=== PATIENT | female | born 1995 | race Two or more races ===

== ENCOUNTER 2024-06-14 11:33 | Emergency (ER) | payer MEDICAID, SELFPAY ==
--- NOTE | 2024-06-14 12:18 | PD.EDRME ---
Rapid Medical Screening Exam RME Arrival date/time: 06/14/24 11:33 28-year-old female presents to the emergency department complains of nausea vomiting and abdominal pain since this morning Chief Complaint: Abdominal Pain
[2024-06-14] MEDS: ONDANSETRON ODT 4 MG TABRAP PO (12:27)
[2024-06-14 12:31] VITALS: BP 159/96; PULSE 64; RESP 20; TEMP 36.8; O2SAT 100; BMI 21.4
[2024-06-14 12:46] LABS: Basophils % (Auto) 0 % (0-2.5); Eosinophils % (Auto) 0 % (0-10); Hemoglobin 13.4 g/dL (12.0-16.0); Immature Granulocytes % (Auto) 0 % (0-0); Immature Granulocytes Auto 0.03 Thou/mm3 (0.00-0.00); Lymphocytes # (Auto) 1.1 Thou/mm3 (1.0-4.8); Lymphocytes % (Auto) 9 % (10-50); Mean Corpuscular HGB Conc 33.5 g/dl (31.0-37.0); Mean Corpuscular Hemoglobin 29.1 pg (25.0-35.0); Mean Corpuscular Volume 87 fL (80-100); Monocytes # (Auto) 0.2 Thou/mm3 (0.0-0.8); Monocytes % (Auto) 1 % (0-12); Neutrophils # (Auto) 10.7 Thou/mm3 (1.8-7.7); Neutrophils % (Auto) 89 % (37-80); Nucleated Red Blood Cell % 0 /100 WBC (0); Platelet Count 249 Thou/mm3 (140-440); RDW Standard Deviation 38.8 fL (36.4-46.3); Red Blood Count 4.61 Miln/mm3 (4.00-5.20)
--- NOTE | 2024-06-14 12:53 | XR_ITS ---
Examination: CT abdomen with intravenous contrast CT pelvis with intravenous contrast 2-D coronal reconstructions 2-D sagittal reconstructions Date and time of exam:May 27, 2024 at 1545 hrs. Comparison January 21, 2024 Indications: Onset left lower abdominal pain beginning this morning. Solid right ovarian mass 17 x 16 x 18 mm on transvaginal pelvic sonogram 01/31/2024 CTDI: vol (mGy) 6.38 DLP: (mGycm) 277 Technique: Multiple axial sections of the abdomen and pelvis have been obtained. 64 slice high-resolution scanner used. 3 mm axial sections have been obtained, post intravenous injection 60 cc [id number] 2-D sagittal, coronal reconstructions obtained. Low dose protocols were performed. One or more of the following dose reduction techniques were used; automated exposure control, adjustment of the mA and/or KV according to patient size, use of iterative reconstruction technique. Findings: Mild pneumonia left base No focal liver or splenic lesions No gallstones No pancreatic or adrenal mass No hydronephrosis or ureteral calculi Aorta normal size Absent appendix No bowel obstruction Anteverted uterus Suspicious for septated partially cystic enlarged right ovary Contracted urinary bladder The osseous structures are intact Impression: Mild pneumonia left base No hydronephrosis or ureteral calculi Absent appendix Complex partially septated cystic enlarged right ovary, recommend repeat transabdominal pelvic sonography
--- NOTE | 2024-06-14 12:54 | PD.EDADULT ---
ED General RME/HPI General Chief complaint: Abdominal Pain Stated complaint: SEVERE ABDOMINAL PAIN AND VOMITING Time Seen by Provider: 06/14/24 12:51 Arrival date/time: 06/14/24 11:33 CC: Left lower quadrant abdominal pain HPI onset at 5 AM this morning with nausea vomiting. Patient denies fever but states the IUD was removed yesterday. Patient states this pain is a cramping type pain with a stabbing overlay. Waxes and wanes but never goes away completely. Denies any diarrhea. Last menstrual cycle was on May 20. Patient was tested yesterday was negative prior to IUD removal. Patient denies chest pain fever shortness of breath difficulty breathing. RME / HPI RME / HPI narrative: 06/14/24 11:33 28-year-old female presents to the emergency department complains of nausea vomiting and abdominal pain since this morning Related Data Home Medications ?Medication ?Instructions ?Recorded ?Confirmed tramadol 50 mg tablet 50 mg PO TID PRN Pain (Scale Score 06/14/24 06/14/24 4-6) Previous Rx's ?Medication ?Instructions ?Recorded meloxicam 7.5 mg tablet 7.5 mg PO QDAY #10 tabs 06/14/24 ondansetron 4 mg disintegrating 4 mg PO Q8H #10 tabs 06/14/24 tablet Allergies Allergy/AdvReac Type Severity Reaction Status Date / Time No Known Allergies Allergy Verified 06/14/24 11:36 Review of Systems Review of Systems Narrative Review of Systems: GEN: No fever, no chills, no weight loss EYES: No discharge, no visual changes, no pain HEENT: No ear pain, no congestion, no sore throat PULM: No shortness of breath, no cough, no congestion CV: No chest pain, no dyspnea on exertion, no palpitations GI: No nausea, no vomiting, no diarrhea, + pain, no constipation : No frequency, no urgency, no dysuria MUSC/SKEL: No joint pain, no back pain SKIN: No rash PSYCH: No hallucinations, no depression HEME/LYMPH: No easy bleeding or bruising tendencies NEURO: No weakness, no headache Past Medical History Past Medical History NEUROLOGIC: Negative Neurological Disorders or Seizures CARDIAC: Negative Cardiac Disorders or Congestive Heart Failure RESPIRATORY: Positive Asthma; Negative Chronic Obstructive Pulmonary Disease (COPD) GASTROINTESTINAL: Positive Gastrointestinal Disorders; Negative Hepatitis or Colorectal Cancer GENITOURINARY: Negative Genitourinary Disorders, Renal Disease or Prostate Cancer REPRODUCTIVE: Positive Previous Pregnancies; Negative Breast Cancer, Pelvic Inflammatory Disease or Testicular Cancer MUSCULOSKELETAL: Negative Musculoskeletal Disorders or Bone Cancer ENDOCRINE: Negative Endocrine Disorders, Diabetes Mellitus Type 1 or Diabetes Mellitus Type 2 HEMATOLOGIC: Negative Blood Disorders or Sickle Cell Disease PSYCHO/SOCIAL: Positive Depression and Anxiety OTHER HISTORY: Positive Hospitalization; Negative Autoimmune Disease, Down Syndrome, Developmental Delay, Shingles, Falls, Blood Transfusions, Blood Transfusion Reaction, Anesthesia Reactions, Organ Transplant, Chemotherapy, Radiation Therapy, Hyperbaric Therapy, MRSA, VRSA, Vancomycin-Resistant Enterococci, Human Immunodeficiency Virus (HIV), Chicken Pox, Measles, Mumps, Rubella (Yoruba Measles), Pertussis, Clostridium Difficile, Cancer, Breast Cancer, Cervical Cancer, Colorectal Cancer, Lung Cancer, Ovarian Cancer, Prostate Cancer or Testicular Cancer Family History FAMILY HISTORY: Positive Family Cardiac Disorders and Family Surgery; Negative Family Psychiatric Problems, Family Respiratory Disorders, Family Gastrointestinal Problems, Family Cancer or Family Anesthesia Reaction Surgical History SURGICAL: Positive Tubal Ligation; Negative Section or Organ Transplant Social History SMOKING STATUS: Current every day smoker SECOND HAND EXPOSURE: Yes SUBSTANCE USE: marijuana (Occasional) ED Exam Narrative Physical exam: [General: Obese in moderate discomfort but not in any acute distress Head normocephalic HEENT: Within acceptable limits Neck is supple nontender Chest equal chest rise nontender to palpation Respiratory: Clear to auscultation no wheezes crackles or rubs CV: Rate rhythm is regular no murmurs rubs or clicks Abdomen: Left lower quadrant tenderness with palpation reflexive guarding no rebound tenderness. Abdomen is soft positive bowel sounds. Back: No CVA tenderness no spinous process tenderness from cervical spine thoracic and lumbar spine Skin: Intact no petechiae rash induration ulceration or crepitus Extremities: Moving all extremity against resistance cap refill less than 2 seconds neurosensory intact Neuro: Awake alert oriented x3 Glascow coma 15 no focal deficits] Course Quality Measures VTE prophylaxis Orders Category Date Time Status CT Screening NOW Care 06/14/24 12:53 Active Saline [Insert IV] NOW Care 06/14/24 12:[address] abdomen pelvis w con Stat Exams 06/14/24 12:53 Completed CBC Stat Lab 06/14/24 12:34 Completed CMP [Comprehensive Metabolic Panel] Stat Lab 06/14/24 12:34 Completed Drug Screen,Urine Stat Lab 06/14/24 14:09 Completed HCG Qualitative,Urine Stat Lab 06/14/24 14:09 Completed Lipase Stat Lab 06/14/24 12:34 Completed UA, C/S IF [Urinalysis, C/S if Indicated] Stat Lab 06/14/24 14:09 Completed Ketorolac Inj [Toradol Inj] Med 06/14/24 16:00 Discontinued 15 mg IVP X1 ONE Metoclopramide Inj [Reglan Inj] Med 06/14/24 12:17 Discontinued 10 mg IM X1 ONE Morphine Inj Med 06/14/24 12:51 Discontinued 4 mg IVP X1 ONE Ondansetron Inj [Zofran Inj] Med 06/14/24 12:51 Discontinued 4 mg IV X1 ONE Ondansetron Inj [Zofran Inj] Med 06/14/24 16:38 Discontinued 4 mg IV X1 ONE Ondansetron Odt [Zofran Odt] Med 06/14/24 12:17 Discontinued 4 mg PO X1 ONE Sodium Chloride 0.9% 1000 ml [Ns] 1,000 ml Med 06/14/24 13:16 Discontinued IV 999 mls/hr Vital Signs Vital signs: Vital Signs Temperature 98.3 F 06/14/24 12:31 Pulse Rate 64 06/14/24 12:31 Respiratory Rate 20 06/14/24 12:31 Blood Pressure 159/96 H 06/14/24 12:31 Pulse Oximetry (%) 100 06/14/24 12:31 Oxygen Delivery Method Room Air 06/14/24 12:31 [facility] Patient data External records reviewed:: [facility] previous records Clinical information provided by:: none Social determinants that could affect healthcare access:: none Patient has the following chronic illnesses:: None How is presenting disease/condition affected by chronic disease/condition?: uneffected by Evaluation data The following diagnostics were reviewed and interpreted by me:: lab results and radiology exam(s) Lab and/or radiology exams considered but not ordered:: CBC shows leukocytosis of 12,000 no anemia thrombocytopenia CMP shows no acute electrolyte imbalances other than a mildly elevated glucose at 159, no transaminitis or T. bili elevation Urine is negative for UTI UDS positive for opiates and THC CT of the abdomen shows a large complex right ovarian cyst, minimal left base pneumonia, appendix is absent as read by radiologist Interpretation Summary: Patient has no pneumonia type symptoms including cough shortness of breath hypoxemia high fever therefore will not treat. Patient is to follow-up with the [employer] which she states she has. Medications Medications considered but not ordered:: None Medication administrations:: Medication Administration History Discontinued Medications Sodium Chloride (Ns) 1,000 mls @ 999 mls/hr IV .Q1H1M ONE Stop: 06/14/24 14:16 Last Admin: 06/14/24 13:19 Dose: 999 mls/hr Documented By: AM Ketorolac Tromethamine (Ketorolac Inj 30 Mg/Ml Vial) 15 mg IVP X1 ONE Stop: 06/14/24 16:01 Last Admin: 06/14/24 16:11 Dose: 15 mg Documented By: DO Metoclopramide HCl (Metoclopramide Inj 5 Mg/Ml Vial 2 Ml) 10 mg IM X1 ONE; Protocol Stop: 06/14/24 12:18 Last Admin: 06/14/24 13:21 Dose: 10 mg Documented By: Admin: 06/14/24 12:28 Dose: Not Given Documented By: DO Non-Admin Reason: Patient Refused Morphine Sulfate (Morphine Sulf Inj 10 Mg/Ml Vial) 4 mg IVP X1 ONE Stop: 06/14/24 12:52 Last Admin: 06/14/24 13:21 Dose: 4 mg Documented By: AM Comments: 4 mg given Ondansetron HCl (Ondansetron Odt 4 Mg Tabrap) 4 mg PO X1 ONE; Protocol Stop: 06/14/24 12:18 Last Admin: 06/14/24 12:27 Dose: 4 mg Documented By: DO Ondansetron HCl (Ondansetron Inj 2 Mg/Ml Inj 2 Ml) 4 mg IV X1 ONE; Protocol Stop: 06/14/24 12:52 Last Admin: 06/14/24 16:07 Dose: Not Given Documented By: DO Non-Admin Reason: Cancelled by Provider Ondansetron HCl (Ondansetron Inj 2 Mg/Ml Inj 2 Ml) 4 mg IV X1 ONE; Protocol Stop: 06/14/24 16:39 None Consultations Consultation(s) initiated? (list below): No Diagnosis Differential Diagnosis ED Complaint MDM: Appendicitis pancreatitis cholelithiasis Most likely diagnosis given after review of the tests above:: Right ovarian cyst, abdominal pain Admission Indicated Admission indicated?: not indicated Explain why admission is indicated or not indicated:: Stable for outpatient follow-up Admission Request Was there a request for admission?: No Disposition Plan Disposition Plan: Discharge Discharge Attestation Discharge Attestation: The patient and all family members were given an opportunity to ask questions and understood the discharge instructions. Discharge instructions specifically effects, indications for sooner follow up or return to the emergency department, and the expected course of current diagnosis. Patient condition: Stable Medical Decision Making Differential Diagnosis Differential Diagnosis: Appendicitis pancreatitis cholelithiasis Lab Data 06/14/24 12:34 06/14/24 12:34 Labs: Lab Results 06/14/24 06/14/24 Range/Units 12:34 14:09 WBC 12.0 H (3.6-11.0) Thou/mm3 RBC 4.61 (4.00-5.20) Miln/mm3 Hgb 13.4 (12.0-16.0) g/dL Hct 40.0 (36.0-46.0) % MCV 87 (80-100) fL MCH 29.1 (25.0-35.0) pg MCHC 33.5 (31.0-37.0) g/dl RDW Std Deviation 38.8 (36.4-46.3) fL Plt Count 249 (140-440) Thou/mm3 Neut % (Auto) 89 H (37-80) % Lymph % (Auto) 9 L (10-50) % [place] % (Auto) 1 (0-12) % Eos % (Auto) 0 (0-10) % Baso % (Auto) 0 (0-2.5) % Neut # (Auto) 10.7 H (1.8-7.7) Thou/mm3 Lymph # (Auto) 1.1 (1.0-4.8) Thou/mm3 [place] # (Auto) 0.2 (0.0-0.8) Thou/mm3 Eos # (Auto) 0.0 (0.0-0.5) Thou/mm3 Baso # (Auto) 0.0 (0.0-0.2) Thou/mm3 Immature Gran # (Auto) 0.03 H (0.00-0.00) Thou/mm3 Absolute Nucleated RBC 0.00 (0.00-0.00) Thou/mm3 Immature Gran % 0 (0-0) % Nucleated RBC % 0 (0) /100 WBC Sodium 140 (136-145) mMol/L Potassium 4.0 (3.4-5.1) mMol/L Chloride 104 (98-107) mMol/L Carbon Dioxide 27.0 (20.0-31.0) mMol/L Anion Gap 9 (7-16) BUN 9 (9-23) mg/dL Creatinine 0.7 (0.6-1.3) mg/dL Estim Creat Clear Calc 105.2 (>60) mL/min eGFR > 60 (60 - ) See Note BUN/Creatinine Ratio 13 (12-20) Ratio Glucose 159 H (74-106) mg/dL Calculated Osmolality 281 (275-295) Calcium 9.9 (8.3-10.6) mg/dL Corrected Calcium 9.9 (8.5-10.1) mg/dL Total Bilirubin 0.3 (0.3-1.2) mg/dL AST 12 (0-34) U/L ALT 9 L (10-49) U/L Alkaline Phosphatase 56 (46-116) U/L Total Protein 7.5 (5.7-8.2) gm/dL Albumin 4.7 (3.5-5.0) gm/dL Globulin 2.8 (2.3-3.5) gm/dL Albumin/Globulin Ratio 1.7 (1.2-2.2) Lipase 27 (12-53) U/L Ur Collection Type Clean Catch Urine Color Lt-Yellow (Lt Yel-Yel) Urine Clarity Turbid A (Clear/Hazy) Urine pH 8.0 H (5.0-7.0) Ur Specific [place] 1.029 (1.001-1.035) Urine Protein 1+ A (Neg - Trace) Urine Glucose (UA) Negative (Negative) Urine Ketones 4+ A (Negative) Urine Blood Negative (Negative) Urine Nitrite Negative (Negative) Urine Bilirubin Negative (Negative) Urine Urobilinogen (Auto) Negative (0.0-1.0) mg/dL Ur Leukocyte Esterase Positive (Negative) Urine RBC 3 (0-3) /hpf Urine WBC 7 H (0-5) /hpf Ur Squamous Epith Cells 12 H (0-5) /hpf Urine Bacteria Rare (None) Ur Culture Indicated? Not Indicated Urine HCG, Qual Negative Urine Opiates Screen Positive A (Negative) Urine Fentanyl Screen Negative (Negative) Ur Barbiturates Screen Negative (Negative) U Amphetamin/Meth Scrn Negative (Negative) U Benzodiazepines Scrn Negative (Negative) U Cocaine Metab Screen Negative (Negative) U Marijuana (THC) Screen Positive A (Negative) Discharge Plan Plan Patient Disposition: HOME (Self Care) Patient condition on transfer: Stable Prescriptions/Referrals Prescriptions/Med Rec: New meloxicam 7.5 mg tablet 7.5 mg PO QDAY Qty: 10 0RF ondansetron 4 mg tablet,disintegrating 4 mg PO Q8H Qty: 10 0RF No Action tramadol 50 mg tablet 50 mg PO TID PRN (Reason: Pain (Scale Score 4-6)) Patient Comments: TAKE 1 TABLET BY MOUTH 3 TIMES A DAY NEEDED FOR ABDOMINAL OR PELVIC PAIN Referrals: Venu Glynn MD [Primary Care Provider] - In 1 week Namrata Dunaway MD [Physician] - In 1 week Problem List Clinical Impression: Ovarian cyst, Abdominal pain, right lower quadrant Patient/Caregiver Discharge Instructions Education Materials: ED Ovarian Cyst, Abdominal Pain Additional Instructions: Take the medication as prescribed for pain and nausea relief follow-up with your [employer] or the [employer] listed above. Print Language: Kittitian Stand Alone Forms: Dianna Award Info., Patient Portal Info Letter, Work/School Release PA/[employer] Supervising Physician ALICIA/[employer] Supervising Physician: Kolby Schultz ENP
[2024-06-14 13:07] LABS: Alanine Aminotransferase 9 U/L (10-49); Albumin, Serum 4.7 gm/dL (3.5-5.0); Albumin/Globulin Ratio 1.7 (1.2-2.2); Alkaline Phosphatase 56 U/L (46-116); Anion Gap 9 (7-16); Aspartate Amino Transferase 12 U/L (0-34); BUN/Creatinine Ratio 13 Ratio (12-20); Bilirubin,Total 0.3 mg/dL (0.3-1.2); Blood Urea Nitrogen 9 mg/dL (9-23); Calcium 9.9 mg/dL (8.3-10.6); Calcium (Corrected) 9.9 mg/dL (8.5-10.1); Chloride 104 mMol/L (98-107); Creatinine (Component) 0.7 mg/dL (0.6-1.3); Estimated Creatinine Clearance 105.2 mL/min (>60); Globulin 2.8 gm/dL (2.3-3.5); Glucose 159 mg/dL (74-106); Lipase 27 U/L (12-53); Osmolality,Calculated 281 (275-295); Sodium 140 mMol/L (136-145); Total Protein 7.5 gm/dL (5.7-8.2); eGFR > 60 See Note
[2024-06-14] MEDS: SODIUM CHLORIDE 0.9% 1000 ML 1,000 ML 999 ML IV (13:19)
[2024-06-14] MEDS: METOCLOPRAMIDE INJ 5 MG/ML VIAL 2 ML 10 MG IM (13:21)
[2024-06-14] MEDS: MORPHINE SULF INJ 10 MG/ML VIAL 4 MG IVP (13:21)
[2024-06-14 14:30] LABS: Collection Type, Urine Clean Catch
[2024-06-14 14:33] VITALS: BP 140/94; PULSE 74; RESP 18; TEMP 37; O2SAT 100
[2024-06-14 14:41] LABS: Bacteria,Urine Rare; Bilirubin,Urine Negative (Negative); Blood,Urine Negative (Negative); Clarity,Urine Turbid (Clear/Hazy); Color,Urine Lt-Yellow (Lt Yel-Yel); Culture Indicated,Urine Not Indicated; Glucose, Urine Negative (Negative); Ketones,Urine 4+ (Negative); Leukocyte Esterase,Urine Positive (Negative); Nitrite,Urine Negative (Negative); Protein,Urine 1+ (Neg - Trace); RBC,Urine 3 /hpf (0-3); Specific Gravity,Urine 1.029 (1.001-1.035); Squamous Epithelial Cell,Urine 12 /hpf (0-5); Urobilinogen,Urine Negative mg/dL (0.0-1.0); WBC,Urine 7 /hpf (0-5)
[2024-06-14 14:52] LABS: Amphetamine/Methamp Scrn,U Negative (Negative); Barbiturate Screen,Urine Negative (Negative); Benzodiazepines Screen,Urine Negative (Negative); Benzoylecgonine Screen, Ur Negative (Negative); Fentanyl Screen,Urine Negative (Negative); Opiate Screen,Urine Positive (Negative); THC Screen,Urine Positive (Negative)
[2024-06-14 15:15] LABS: HCG Qualitative,Urine Negative
[2024-06-14] MEDS: KETOROLAC INJ 30 MG/ML VIAL 15 MG IVP (16:11)
[2024-06-14 16:31] VITALS: BP 144/88; PULSE 68; RESP 17; TEMP 37.3; O2SAT 100
[2024-06-14] MEDS: ONDANSETRON INJ 2 MG/ML INJ 2 ML 4 MG IV (17:13)
== END 2024-06-14 17:10 | disposition home or self-care (01) ==
PROVIDERS: Nurse Practitioner Primary Care; Emergency Provider Emergency Medicine; PCP Family Medicine
DX: N83.201 Unspecified ovarian cyst, right side (principal)
CPT/HCPCS: 36415; 74177; 80053; 80307; 81001; 81025; 83690; 85025; 96372; 99285; A4649; J1885; J2270; J2405; J2765; J7030; Q0162; Q9967

== ENCOUNTER 2024-06-22 12:37 | Emergency (ER) | payer MEDICAID, SELFPAY ==
--- NOTE | 2024-06-22 12:46 | EDNOTE_ITS ---
ED Abdominal Pain RME/HPI General Chief Complaint: Abdominal Pain Stated complaint: LOWER ABD PAIN, N/V, CONSTIPATION Time seen by provider: 06/22/24 12:41 Arrival date/time: 06/22/24 12:37 RME / HPI RME / HPI narrative: This section includes all my notes and documentations, including HPI, PE, and ED course.? Abhishek Olivier MD HPI: 28 year old female with history of pelvic congestion syndrome to the left ovary and recent diagnosed with right ovarian cyst presents to the ED for complaint of abdominal pain today. Described as cramping in sensation located most across lower abdomen, rating as severe. Accompanied by feeling feverish, nausea, and vomiting. States she was evaluated here on 06/14/2024 for similar abdominal pain and prescribed Toradol which she took today without any improvement. Denies sweats, chest pain, cough, or urinary symptoms. No other complaints. ROS: All negative except as documented in HPI. Physical Exam: General:? Alert and oriented.? Appears to be in pain. Eyes:? Conjunctivae and lids clear.? ENT:? No nasal congestion.? Neck:? Supple.? Heart:? RRR.? Lungs:? No respiratory distress.? Good air movement.? No rhonchi, wheezing, rales.?? Abdomen:? Soft with pelvic tenderness. Legs:? No clubbing, cyanosis, edema.? Skin:? Warm and dry.?? Neuro:? Alert and oriented X 3.?? I reviewed all diagnostic test results. My review of the US report is: Right ovary 4.9 x 4.0 x 4.1 cm arterial flow septated 3.3 x 3.4 x 3.4 cm cyst. Blood tests unremarkable. At this point, diagnoses include?pelvic pain of unclear etiology. Treatment here included?Zofran and morphine and Dilaudid. Significant improvement noted. I discussed the case with our ORGANIC GARDENING TEACHER on-call.? About the presentation and exam and diagnostics and treatments here.? And possible need of further care in the hospital.? Recommended outpatient care. Based on my best medical judgment, made decision no further evaluation or treatment indicated at this time.? Patient understands and agrees to the discharge instructions customized and printed, see below. Discharge instructions from Dr. Olivier: -- After extensive evaluation (including exam by our cigar making machine operator), there is no emergency such as ovarian torsion needing emergent surgery. -- Your pain may be from large ovarian cyst or an ovarian cyst that ruptured. -- In young females, it is normal to have ovarian cysts (sacs of fluid) that come and go depending on the menstruation.? If a cyst ruptures, it can cause severe pain until your body reabsorbs the fluid. -- Apply ice or heat if helpful.? Tylenol with codeine for severe pain. Zofran for nausea/vomiting. -- See a private doctor on 06/23/2024 for recheck and further care..? Ask to review all test results and official radiology reports, to make sure you receive all necessary follow-ups and monitoring. Ask for a referral to see a cigar making machine operator who may perform surgery for you. To make sure there is no serious intra-abdominal condition, ask for help with more investigation not available here in the ER. Such as EGD or scoping the stomach, colonoscopy or scoping the colon, and referral to see aircraft loadmaster superintendent. -- Seek immediate medical care with worsening, fever, or with any concerns. Abhishek Olivier MD Related Data Home Medications ?Medication ?Instructions ?Recorded ?Confirmed tramadol 50 mg tablet 50 mg PO TID PRN Pain (Scale Score 06/14/24 06/14/24 4-6) Previous Rx's ?Medication ?Instructions ?Recorded meloxicam 7.5 mg tablet 7.5 mg PO QDAY #10 tabs 06/14/24 ondansetron 4 mg disintegrating 4 mg PO Q8H #10 tabs 06/14/24 tablet acetaminophen 300 mg-codeine 30 mg 2 tab PO TID PRN pain #20 tabs 06/22/24 tablet ondansetron 4 mg disintegrating 4 mg PO TID PRN nausea and 06/22/24 tablet vomiting 5 days #10 tabs Allergies Allergy/AdvReac Type Severity Reaction Status Date / Time No Known Allergies Allergy Verified 06/14/24 11:36 Review of Systems Review of Systems Systems Reviewed: All systems reviewed, normal except as documented Past Medical History Past Medical History RESPIRATORY: Positive Asthma GASTROINTESTINAL: Positive Gastrointestinal Disorders REPRODUCTIVE: Positive Previous Pregnancies PSYCHO/SOCIAL: Positive Recreational Drug Use (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), Depression and Anxiety OTHER HISTORY: Positive Hospitalization Family History FAMILY HISTORY: Positive Family Cardiac Disorders and Family Surgery Surgical History SURGICAL: Positive Tubal Ligation; Negative Section Social History SMOKING STATUS: Never smoker SECOND HAND EXPOSURE: Yes SUBSTANCE USE: marijuana (Occasional) Course Quality Measures none Orders Category Date Time Status US transvaginal Stat Exams 06/22/24 12:47 Completed CBC Stat Lab 06/22/24 12:53 Completed CMP [Comprehensive Metabolic Panel] Stat Lab 06/22/24 12:53 Completed HCG,Qualitative Serum Stat Lab 06/22/24 12:53 Completed Magnesium Stat Lab 06/22/24 12:53 Completed ACETAMINOPHEN w/COD 300-30 [Tylenol w/Cod #3] Med 06/22/24 12:47 Discontinued 2 tab PO X1 ONE HYDROmorphone INJ [Dilaudid Inj] Med 06/22/24 16:42 Discontinued 2 mg IM X1 ONE Morphine Inj Med 06/22/24 13:02 Discontinued 10 mg IM X1 ONE Ondansetron Odt [Zofran Odt] Med 06/22/24 12:47 Discontinued 4 mg PO X1 ONE Ondansetron Odt [Zofran Odt] Med 06/22/24 15:23 Discontinued 4 mg PO X1 ONE Vital Signs Vital signs: Vital Signs Temperature 99.5 F 06/22/24 12:48 Pulse Rate 83 06/22/24 12:48 Respiratory Rate 19 06/22/24 12:48 Blood Pressure 136/109 H 06/22/24 12:48 Pulse Oximetry (%) 100 06/22/24 12:48 Oxygen Delivery Method Room Air 06/22/24 12:48 Abdominal Pain MDM Patient data External records reviewed:: [facility] previous records Clinical information provided by:: patient Social determinants that could affect healthcare access:: other (specify) (Unknown) Patient has the following chronic illnesses:: Chronic pelvic pain How is presenting disease/condition affected by chronic disease/condition?: exacerbated by Evaluation data The following diagnostics were reviewed and interpreted by me:: lab results and radiology exam(s) Lab and/or radiology exams considered but not ordered:: None Interpretation Summary: Pelvic pain of unclear etiology Medications / Prescriptions Medications or Prescriptions considered but not ordered:: None Medication administrations:: Medication Administration History Discontinued Medications Acetaminophen/Codeine Phosphate (Acetaminophen W/Cod 300-30 Tablet) 2 tab PO X1 ONE Stop: 06/22/24 12:48 Last Admin: 06/22/24 13:10 Dose: Not Given Documented By: TASIA Non-Admin Reason: Cancelled by Provider Hydromorphone HCl (Hydromorphone Inj 2 Mg/Ml Vial) 2 mg IM X1 ONE Stop: 06/22/24 16:43 Last Admin: 06/22/24 16:58 Dose: 2 mg Documented By: FINN Morphine Sulfate (Morphine Sulf Inj 10 Mg/Ml Vial) 10 mg IM X1 ONE Stop: 06/22/24 13:03 Last Admin: 06/22/24 13:07 Dose: 10 mg Documented By: TASIA Ondansetron HCl (Ondansetron Odt 4 Mg Tabrap) 4 mg PO X1 ONE; Protocol Stop: 06/22/24 12:48 Last Admin: 06/22/24 13:00 Dose: 4 mg Documented By: TASIA Ondansetron HCl (Ondansetron Odt 4 Mg Tabrap) 4 mg PO X1 ONE; Protocol Stop: 06/22/24 15:24 Last Admin: 06/22/24 15:57 Dose: 4 mg Documented By: FINN Patient given dilaudid, morphine, and zofran Consultations Consultation(s) initiated? (list below): Yes Consultation #1 (Physician, Specialty, Details): Our ORGANIC GARDENING TEACHER Diagnosis Differential diagnosis abdominal pain: abdominal pain, acute appendicitis, calculus of kidney, constipation, diverticulitis, endometriosis, gastroenteritis, small bowel obstruction and other (Ovarian cyst, ovarian torsion) Most likely diagnosis given after review of the tests above:: pelvic pain of unclear etiology Admission Indicated Admission indicated?: not indicated Admission Request Was there a request for admission?: No Admission Attestation Admission request attestation: Admission criteria not met Disposition Plan Disposition Plan: Discharge Discharge Attestation Discharge Attestation: The patient and all family members were given an opportunity to ask questions and understood the discharge instructions. Discharge instructions specifically effects, indications for sooner follow up or return to the emergency department, and the expected course of current diagnosis. Patient condition: Stable Discharge Plan Plan Patient Disposition: HOME (Self Care) Prescriptions/Referrals Prescriptions/Med Rec: New acetaminophen-codeine 300-30 mg tablet 2 tab PO TID MDD 6 PRN (Reason: pain) Qty: 20 0RF ondansetron 4 mg tablet,disintegrating 4 mg PO TID PRN (Reason: nausea and vomiting) 5 Days Qty: 10 0RF No Action tramadol 50 mg tablet 50 mg PO TID PRN (Reason: Pain (Scale Score 4-6)) Patient Comments: TAKE 1 TABLET BY MOUTH 3 TIMES A DAY NEEDED FOR ABDOMINAL OR PELVIC PAIN meloxicam 7.5 mg tablet 7.5 mg PO QDAY Qty: 10 0RF ondansetron 4 mg tablet,disintegrating 4 mg PO Q8H Qty: 10 0RF Referrals: Tosha Pacheco PA-C [Primary Care Provider] - In 1 week Problem List Clinical Impression: Pelvic pain Patient/Caregiver Discharge Instructions Discharge Activity: activity as tolerated Education Materials: ED Ovarian Cyst, ED Pelvic Pain, Unknown Cause Additional Instructions: Discharge instructions from Dr. Olivier: -- After extensive evaluation (including exam by our cigar making machine operator), there is no emergency such as ovarian torsion needing emergent surgery. -- Your pain may be from large ovarian cyst or an ovarian cyst that ruptured. -- In young females, it is normal to have ovarian cysts (sacs of fluid) that come and go depending on the menstruation.? If a cyst ruptures, it can cause severe pain until your body reabsorbs the fluid. -- Apply ice or heat if helpful.? Tylenol with codeine for severe pain. Zofran for nausea/vomiting. -- See a private doctor on 06/23/2024 for recheck and further care..? Ask to review all test results and official radiology reports, to make sure you receive all necessary follow-ups and monitoring. Ask for a referral to see a cigar making machine operator who may perform surgery for you. To make sure there is no serious intra-abdominal condition, ask for help with more investigation not available here in the ER. Such as EGD or scoping the stomach, colonoscopy or scoping the colon, and referral to see aircraft loadmaster superintendent. -- Seek immediate medical care with worsening, fever, or with any concerns. Print Language: Filipino Stand Alone Forms: [facility] Award Info., Patient Portal Info Letter
--- NOTE | 2024-06-22 12:47 | XR_ITS ---
Examination: Transvaginal ultrasound of the pelvis, complete Technique: Transvaginal sonographic images pelvis performed using quiles scale imaging Exam date and time: June 22, 2024 1332 hours Comparison 01/31/2024 INDICATIONS: Lower pelvic pain one week, CT examination pelvis June 14, 2024 septated partially cystic enlarged right ovary FINDINGS: Uterus 8.3 x 4.4 x 5.4 cm Endometrial stripe 10 mm No uterine mass or intrauterine gestation Right ovary 4.9 x 4.0 x 4.1 cm arterial flow septated 3.3 x 3.4 x 3.4 cm cyst Left ovary obscured by bowel gas IMPRESSION: Recommend 6 month follow-up pelvic sonography to document stability of septated right ovarian cyst 3.3 x 3.4 x 3.4 cm.
[2024-06-22 12:48] VITALS: BP 136/109; PULSE 83; RESP 19; TEMP 37.5; O2SAT 100
[2024-06-22 12:55] VITALS: BMI 22.0
[2024-06-22] MEDS: ONDANSETRON ODT 4 MG TABRAP PO ×2 (13:00→15:57)
[2024-06-22] MEDS: MORPHINE SULF INJ 10 MG/ML VIAL IM (13:07)
[2024-06-22 13:25] LABS: Basophils % (Auto) 0 % (0-2.5); Eosinophils % (Auto) 0 % (0-10); Hematocrit 39.4 % (36.0-46.0); Hemoglobin 13.3 g/dL (12.0-16.0); Immature Granulocytes % (Auto) 0 % (0-0); Immature Granulocytes Auto 0.05 Thou/mm3 (0.00-0.00); Lymphocytes # (Auto) 1.5 Thou/mm3 (1.0-4.8); Lymphocytes % (Auto) 11 % (10-50); Mean Corpuscular HGB Conc 33.8 g/dl (31.0-37.0); Mean Corpuscular Hemoglobin 29.3 pg (25.0-35.0); Mean Corpuscular Volume 87 fL (80-100); Monocytes # (Auto) 0.4 Thou/mm3 (0.0-0.8); Monocytes % (Auto) 3 % (0-12); Neutrophils # (Auto) 11.3 Thou/mm3 (1.8-7.7); Neutrophils % (Auto) 85 % (37-80); Nucleated Red Blood Cell % 0 /100 WBC (0); Platelet Count 279 Thou/mm3 (140-440); RDW Standard Deviation 39.9 fL (36.4-46.3); Red Blood Count 4.54 Miln/mm3 (4.00-5.20); White Blood Count 13.3 Thou/mm3 (3.6-11.0)
[2024-06-22 13:39] LABS: Alanine Aminotransferase 10 U/L (10-49); Albumin, Serum 4.5 gm/dL (3.5-5.0); Albumin/Globulin Ratio 1.8 (1.2-2.2); Alkaline Phosphatase 50 U/L (46-116); Anion Gap 9 (7-16); Aspartate Amino Transferase 16 U/L (0-34); BUN/Creatinine Ratio 9 Ratio (12-20); Bilirubin,Total 0.3 mg/dL (0.3-1.2); Blood Urea Nitrogen 6 mg/dL (9-23); Calcium 9.9 mg/dL (8.3-10.6); Calcium (Corrected) 9.9 mg/dL (8.5-10.1); Carbon Dioxide 26.1 mMol/L (20.0-31.0); Chloride 101 mMol/L (98-107); Creatinine (Component) 0.7 mg/dL (0.6-1.3); Estimated Creatinine Clearance 105.2 mL/min (>60); Globulin 2.5 gm/dL (2.3-3.5); Glucose 109 mg/dL (74-106); Magnesium 1.8 mg/dL (1.6-2.6); Osmolality,Calculated 270 (275-295); Potassium 3.9 mMol/L (3.4-5.1); Sodium 136 mMol/L (136-145); eGFR > 60 See Note
[2024-06-22 15:45] LABS: HCG,Qualitative Serum Negative
--- NOTE | 2024-06-22 16:06 | PC.NURSE ---
PT C/O 10 PAIN AND NAUSEA. PROVIDER NOTIFIED. PER MD, PENDING CONSULT BY OBGYN AND RECOMMENDATIONS. PT MADE AWARE.
[2024-06-22] MEDS: HYDROmorphone INJ 2 MG/ML VIAL IM (16:58)
--- NOTE | 2024-06-22 17:01 | PD.GYNCONS ---
RESPIRATORY CARE TECHNICIAN HPI Data of Consult Consult date: 06/22/24 Requesting Physician: Dr. Olivier Primary Care Provider: Tosha Pacheco PA-C Consult Narrative Reason for consult: pelvic pain and pelvic mass History of present illness: Patient is a 28-year-old -0-1-1 past gynecological history significant for a right-sided ectopic in 2018. Patient was taken to the operating room for an attempted laparoscopic unilateral salpingectomy which ended up being an open procedure. This was performed by DrMarek By Dr. Barnett in 2018. Patient presents today with her mother reporting severe nausea vomiting and abdominal pain. The patient has been seen several times in the emergency room for similar complaints. She most recently was in the emergency room about a week ago. She reports N/V. No fevers. No diarreah. No vaginal bleeding. The pain is constant and stabbing in nature. Not colicky. cc:: cc: Past Medical History Surgical History SURGICAL: Positive Abdominal Surgery OTHER SURGICAL HX: Laparoscopic Appendectomy, Attempted Laparoscopic R Salpingectomy converted to laparotomy 2018 3 years ago Meds Home Medications and Allergies Home Medications ?Medication ?Instructions ?Recorded ?Confirmed ?Type tramadol 50 mg tablet 50 mg PO TID PRN Pain (Scale Score 06/14/24 06/14/24 History 4-6) Allergies Allergy/AdvReac Type Severity Reaction Status Date / Time No Known Allergies Allergy Verified 06/14/24 11:36 Exam - RESPIRATORY CARE TECHNICIAN Vital Signs Temp Pulse Resp BP Pulse Ox O2 Del Method 99.5 F 83 19 136/109 H 100 Room Air 06/22/24 12:48 06/22/24 12:48 06/22/24 12:48 06/22/24 12:48 06/22/24 12:48 06/22/24 12:48 Narrative Exam Patient is alert alert and oriented x 3 she is cooperative. She appears in moderate discomfort. During the exam she spit up into a bag but did not vomit large amounts of fluid. Abdomen is soft nondistended diffusely tender she has incisions from her laparoscopic surgeries and a Pfannenstiel scar on her abdomen. A Speculum reveals normal cervical discharge no odor no bleeding pelvic exam reveals an anteverted uterus with diffuse tenderness unable to palpate left or right adnexa well. Constitutional Constitutional: moderate distress, thin and cooperative Routine Abdominal Exam Abdominal: Present soft, tenderness and surgical scars RESPIRATORY CARE TECHNICIAN - Results Labs 06/22/24 12:53 06/22/24 12:53 Labs: Short CBC 06/22/24 Range/Units 12:53 WBC 13.3 H (3.6-11.0) Thou/mm3 Hgb 13.3 (12.0-16.0) g/dL Hct 39.4 (36.0-46.0) % Plt Count 279 D (140-440) Thou/mm3 BMP 06/22/24 12:53 Sodium 136 Potassium 3.9 Chloride 101 Carbon Dioxide 26.1 BUN 6 L Creatinine 0.7 Glucose 109 H Calcium 9.9 Liver Function 06/22/24 Range/Units 12:53 Total Bilirubin 0.3 (0.3-1.2) mg/dL AST 16 (0-34) U/L ALT 10 (10-49) U/L Alkaline Phosphatase 50 (46-116) U/L Albumin 4.5 (3.5-5.0) gm/dL Assessment and Plan Assessment and plan (1) Nausea and vomiting in adult patient: Status: Acute Additional Assessment & Plan Additional Plan: Patient seen and examined. She does use daily marijuana. She could have cyclical nausea vomiting and abdominal pain from marijuana use. No acute gynecological reason to proceed with laparoscopy at this time. Would recommend IV fluids and pain medications. The patient sees a doctor in [place] who refers her to Dr. Morales in [place]. I explained the 3.5 cm cyst that is present on her right ovary and it has been consistently present for months on repeated imaging. At this time would recommend observation IV fluids and pain medication. Patient has tramadol at home. Discussed this case with Dr. Olivier in the emergency room
== END 2024-06-22 17:08 | disposition home or self-care (01) ==
PROVIDERS: Emergency Provider Emergency Medicine; PCP Physician Assistant
DX: R10.2 Pelvic and perineal pain (principal); G89.29 Other chronic pain; R11.2 Nausea with vomiting, unspecified
CPT/HCPCS: 36415; 76830; 80053; 83735; 84703; 85025; 96372; 99284; J2270; J3490; Q0162

== ENCOUNTER 2024-09-16 10:18 | Outpatient (AMB) | payer MEDICAID, SELFPAY ==
--- NOTE | 2024-09-16 10:42 | AMB.GYNCLNOT ---
Vital Signs 09/16/24 10:45 Height 1.63 m Height Method Stated Weight 55.849 kg Weight Measurement Method Standing Scale BMI 21.0 BP 114/76 Blood Pressure Source Automatic Cuff Blood Pressure Location Right Upper Arm Position Sitting Respiration 18 Pulse 65 Pulse Source Monitor Temp 97.9 F Temp Source Temporal Artery Scan Pulse Oximetry (%) 99 Oxygen Delivery Method Room Air Allergies/Home Meds Allergies & Medications Allergies No Known Allergies Allergy (Verified 09/16/24 10:42) Medication Reconciliation meloxicam 7.5 mg tablet 7.5 mg PO QDAY #10 tabs 06/14/24 [Rx Confirmed 09/16/24] ondansetron 4 mg disintegrating tablet 4 mg PO Q8H #10 tabs 06/14/24 [Rx Confirmed 09/16/24] tramadol 50 mg tablet 50 mg PO TID PRN Pain (Scale Score 4-6) 06/14/24 [History Confirmed 09/16/24] acetaminophen 300 mg-codeine 30 mg tablet 2 tab PO TID PRN pain #20 tabs 06/22/24 [Rx Confirmed 09/16/24] Intake Visit Data Collection New Patient or Established: Established Patient (seen at [facility] within 3 years) Reason for Visit:: Irregular periods occurring twice a month with severe pain, history of right-sided ectopic , 3.5 cm cyst on right ovary Do You Feel Safe at Home: Yes Authorities Contacted: N/A PCP or OBGYN visit in last 3 months: Yes Smoking Status Smoking Status: Never smoker 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 1. Little interest or pleasure in doing things: not at all 2. Feeling down, depressed, or hopeless: not at all Total score: 0 Depression screen completed yes Social History Living Situation History Marital Status: Life Partner Lives With: Significant Other Housing: House Tobacco History Smoking Status: Never smoker Second Hand Smoke Exposure: Yes Alcohol History Alcohol Intake: Never Substance Use History Substance Use: last THC use 11/25/2019 Domestic Abuse History Do You Feel Safe at Home: Yes Past Medical History Past Medical History Have you ever been diagnosed with any of the following: Neurological Problems Seizures: No Cardiology Problems Congestive Heart Failure: No Respiratory Problems Chronic Obstructive Pulmonary Disease (COPD): No Asthma: Yes Stomache/Intestinal Problems Hepatitis: No Colorectal Cancer: No Genital/Urinary Problems Renal Disease: No Reproductive Problems Breast Cancer: No Pelvic Inflammatory Disease: No Previous Pregnancies: Yes Musculoskeletal Problems Bone Cancer: No Endocrine Problems Diabetes Mellitus Type 1: No Diabetes Mellitus Type 2: No Blood Problems Sickle Cell Disease: No Psychologic Problems Recreational Drug Use: Yes (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) Depression: Yes Anxiety: Yes Other Problems Hospitalization: Yes Down Syndrome: No Developmental Delay: No Shingles: No Falls: No Blood Transfusions: No Blood Transfusion Reaction: No Anesthesia Reactions: No Organ Transplant: No Chemotherapy: No Radiation Therapy: No Hyperbaric Therapy: No MRSA: No VRSA: No Vancomycin-Resistant Enterococci: No Human Immunodeficiency Virus (HIV): No Chicken Pox: No Measles: No Mumps: No Rubella (Spanish Measles): No Pertussis: No Clostridium Difficile: No Cancer: No Cervical Cancer: No Lung Cancer: No Ovarian Cancer: No History of Present Illness HPI Narrative Monserrat Simpson is a 28-year-old 1 para 1-0-1-1 with a history of right-sided ectopic , presenting with cyclical nausea, vomiting, and abdominal pain. She has a known 3.5 cm cyst on her right ovary. The patient reports that her symptoms began after the of her daughter and insertion of Nexplanon. She experiences irregular periods, occurring twice a month with severe pain. In 2018, she underwent laparoscopic surgery which converted to a laparotomy performed by Dr. Barnett for her ectopic , which involved the removal of her right fallopian tube. The ectopic was initially treated with medication that failed, leading to emergency surgery. Monserrat has a history of multiple ER visits for severe nausea, vomiting, and abdominal pain. She was most recently seen in May 2024, where a benign exam was noted along with surgical scars. The patient is a marijuana user, which may be related to her cyclical symptoms. No acute gynecological intervention was needed at that time. The patient's menstrual cycles have remained irregular since the removal of Nexplanon. She continues to experience severe pain associated with her periods. The persistent right ovarian cyst and history of ectopic complicate her clinical picture. Obstetric History - GPAL: -0-1-1 - history: - Right-sided ectopic in 2018 - Treated initially with medication (shot) which failed - Resulted in emergency surgery - Laparoscopic surgery converted to laparotomy - Right fallopian tube removed during surgery Medical History - Multiple emergency room visits for severe nausea, vomiting, and abdominal pain - Right-sided ectopic Surgical History - Laparoscopic surgery converted to laparotomy in 2018 for right-sided ectopic , performed by Dr. Barnett - Right fallopian tube removal in 2018, performed by Dr. Barnett Medications and Supplements - Nexplanon - Inserted after daughter's - Caused irregular periods - Removed Social History - Substance Use: Current marijuana user - Children: Has a daughter Review of Systems General: Positive for nausea and vomiting. Gastrointestinal: Positive for abdominal pain. Review of Systems Review of Systems Systems Reviewed: All systems reviewed, normal except as documented Exam General Limitations: no limitations General Appearance: alert, in no apparent distress, comfortable, cooperative, healthy appearing, well developed and well groomed Chest Chest inspection: Present normal inspection and symmetric chest wall rise Abdominal Abdominal exam: Present soft and normal bowel sounds Psych Psychiatric exam: Present normal affect and normal mood Skin Skin exam: Present warm, dry, intact and normal color Results Objective Imaging: - Date: 06/22/2024 - Ultrasound: - Uterus: 8.3 x 4.4 x 5.4 cm - Endometrial stripe: 10 mm - Right ovary: 4.9 x 4 x 4.1 cm with septated 3.3 x 3.4 x 3.4 cm cyst - Left ovary: Obscured by gas - Date: 06/14/2024 - CT scan: Consistent with 06/22 imaging - Date: 11/14/2023 - Transvaginal ultrasound: - Uterus: 7.2 x 3 x 4 cm - Right ovary: 4.2 cm with arterial flow, solid mass 1.9 cm - Left ovary: Small follicles - Date: 01/21/2024 - CT scan: Complex right adnexal partial cystic mass 5 cm Assessment & Plan Diagnosis / Problem List (1) Endometriosis: Status: Acute Plan Monserrat Simpson, 28-year-old , with history of right-sided ectopic in 2018, presenting with cyclical nausea, vomiting, and abdominal pain. Right ovarian cyst with suspected endometriosis Assessment: Patient has a 3.5 cm cyst on her right ovary, confirmed by imaging studies. Recent ultrasound (06/22/2024) showed a septated 3.3 x 3.4 x 3.4 cm cyst on the right ovary. CT scan from 01/21/2024 revealed a complex right adnexal partial cystic mass measuring 5 cm. Patient reports irregular periods occurring twice a month with severe pain. Given the patient's history of ectopic , laparoscopic surgery in 2018, and current symptoms, endometriosis is suspected. Differential diagnoses include surgical complications (potential trapped or cut ovary/tube) and a persistent cyst resembling endometriosis. Plan: - Perform diagnostic laparoscopy to remove the cyst and any scar tissue, and burn endometriosis where possible - Conduct comprehensive testing for bladder and rectum issues - Order blood work and hormone tests - Schedule surgery authorization and procedure in 2 weeks - Implement post-surgery regimen to suppress hormones and prevent endometriosis recurrence - Perform detailed imaging review post-procedure Cyclical nausea, vomiting, and abdominal pain Assessment: Patient reports severe nausea, vomiting, and abdominal pain, with multiple ER visits for similar complaints. Symptoms reportedly started after her daughter's and Nexplanon insertion. Patient is a marijuana user, which may contribute to cyclical vomiting syndrome. Previous examination in May 2024 was benign with surgical scars noted, and no acute gynecological intervention was needed at that time. Plan: - Diagnostic laparoscopy (as mentioned in previous problem) to investigate and potentially address underlying causes of symptoms - Comprehensive testing for bladder and rectum issues (as mentioned in previous problem) - Blood work and hormone tests (as mentioned in previous problem) Office Procedures OB Clinic LOC & Office Proc's Nursing/Assessment Patient Status: Initial/New Patient OB Clinic Nursing Assessment: Medication Reconciliation, Update PMH in EMR and Vital Signs OB Clinic Coordination of Care: Complex Care and Chronic Disease 1-5, Education Complex Pt/Fam and Staff clarify orders New Patient Charge New Patient Point Assignment: [id number] New Patient Point Charge: ASSOCIATE PROFESSOR OF PHYSICS Level 3 ([id number])
[2024-09-16 10:45] VITALS: BP 114/76; PULSE 65; RESP 18; TEMP 36.6; O2SAT 99; BMI 21.0
== END 2024-09-16 11:06 | disposition home or self-care (01) ==
LOC: HODSOBC 10:18
PROVIDERS: PCP Physician Assistant; Referring Provider Physician Assistant; Supervising Provider Obstetrics & Gynecology; Visit Provider Obstetrics & Gynecology
DX: N80.9 Endometriosis, unspecified (principal); N83.201 Unspecified ovarian cyst, right side; R11.2 Nausea with vomiting, unspecified; F12.90 Cannabis use, unspecified, uncomplicated; Z87.59 Personal history of other complications of pregnancy, childbirth and the puerperium; Z90.79 Acquired absence of other genital organ(s); Z97.5 Presence of (intrauterine) contraceptive device
CPT/HCPCS: 99203; G0463

== ENCOUNTER 2024-09-30 10:10 | Outpatient (AMB) | payer MEDICAID, SELFPAY ==
[2024-09-30 10:35] VITALS: BP 137/85; PULSE 75; RESP 18; TEMP 36.2; O2SAT 99; BMI 21.0
--- NOTE | 2024-09-30 10:35 | AMB.GYNCLNOT ---
Vital Signs 09/30/24 10:35 Height 1.63 m Height Method Stated Weight 56.019 kg Weight Measurement Method Standing Scale BMI 21.0 BP 137/85 H Blood Pressure Source Automatic Cuff Blood Pressure Location Left Upper Arm Position Sitting Respiration 18 Pulse 75 Pulse Source Monitor Temp 97.2 F Temp Source Oral Pulse Oximetry (%) 99 Oxygen Delivery Method Room Air Allergies/Home Meds Allergies & Medications Allergies codeine Allergy (Verified 10/08/24 06:17) Rash Medication Reconciliation hydrocodone 5 mg-acetaminophen 325 mg tablet 1 tab PO Q6H PRN pain 7 days #28 tabs 10/08/24 [Rx] lactulose 10 gram/15 mL oral solution 15 ml PO QDAY 30 days #450 mL 10/08/24 [Rx] ondansetron 8 mg disintegrating tablet 8 mg PO Q8H PRN nausea and vomiting 30 days #60 tabs 10/08/24 [Rx Confirmed 10/08/24] Intake Visit Data Collection New Patient or Established: Established Patient (seen at [facility] within 3 years) Reason for Visit:: Follow-up for pelvic pain, preoperative visit for scheduled diagnostic laparoscopy Seen by Clinical Staff ONLY (RN/MA): No Refractory Repairer Required: No Do You Feel Safe at Home: Yes Authorities Contacted: N/A PCP or OBGYN visit in last 3 months: Yes Date of Last PCP or OBGYN visit: 09/16/24 Hx Now: No Are you currently on any form of Control: No Pain Present Currently: Yes Pain Location: Abdomen Pain Scale Used: Gates-Villalpando/Numerical Pain scale:: 6 Smoking Status Smoking Status: Never smoker 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 1. Little interest or pleasure in doing things: not at all 2. Feeling down, depressed, or hopeless: not at all Total score: 0 PHQ-9 3. Trouble falling or staying asleep, or sleeping too much: Not at all 4. Feeling tired or having little energy: Not at all 5. Poor appetite or overeating: Not at all 6. Feeling bad about yourself - or that you are a failure or have let yourself or your family down: Not at all 7. Trouble concentrating on things, such as reading the newspaper or watching television: Not at all 8. Moving or speaking so slowly that other people could have noticed? - Or the opposite - being so fidgety or restless that you have been moving around a lot more than usual: not at all 9. Thoughts that you would be better off or of hurting yourself in some way: Not at all Total score: 0 If you checked off any problems, how difficult have these problems made it for you to do your work, take care of things at home, or get along with other people?: not difficult at all Source: Developed by Drs. Mack Bowers, Sahra Sarmiento, Shon Rojas and colleagues, with an educational anabella from [employer]. Depression screen completed yes Social History Living Situation History Lives With: Significant Other Housing: House Tobacco History Smoking Status: Never smoker Second Hand Smoke Exposure: Yes Alcohol History Alcohol Intake: Never Substance Use History Substance Use: last THC use 11/25/2019 Domestic Abuse History Do You Feel Safe at Home: Yes Past Medical History Past Medical History Have you ever been diagnosed with any of the following: Neurological Problems Seizures: No Cardiology Problems Congestive Heart Failure: No Respiratory Problems Chronic Obstructive Pulmonary Disease (COPD): No Asthma: Yes Stomache/Intestinal Problems Hepatitis: No Colorectal Cancer: No Genital/Urinary Problems Renal Disease: No Reproductive Problems Breast Cancer: No Pelvic Inflammatory Disease: No Previous Pregnancies: Yes Musculoskeletal Problems Bone Cancer: No Endocrine Problems Diabetes Mellitus Type 1: No Diabetes Mellitus Type 2: No Blood Problems Sickle Cell Disease: No Psychologic Problems Recreational Drug Use: Yes (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) Depression: Yes Anxiety: Yes Other Problems Hospitalization: Yes Down Syndrome: No Developmental Delay: No Shingles: No Falls: No Blood Transfusions: No Blood Transfusion Reaction: No Anesthesia Reactions: No Organ Transplant: No Chemotherapy: No Radiation Therapy: No Hyperbaric Therapy: No MRSA: No VRSA: No Vancomycin-Resistant Enterococci: No Human Immunodeficiency Virus (HIV): No Chicken Pox: No Measles: No Mumps: No Rubella (Mal[place]ian Measles): No Pertussis: No Clostridium Difficile: No Cancer: No Cervical Cancer: No Lung Cancer: No Ovarian Cancer: No History of Present Illness HPI Narrative Monserrat Simpson is a 28-year-old female presenting for follow-up on pelvic pain. She is scheduled for a diagnostic laparoscopy on 10-08-2024 to investigate and potentially treat her condition. The patient's primary complaint is pelvic pain, though the specific details of onset, duration, severity, and impact on daily functioning are not provided in the transcript. The planned laparoscopic procedure aims to look for endometriosis by examining the uterus, ovaries, fallopian tubes, bladder, and rectum. Any cysts or abnormal tissue found during the procedure will be removed. Post-surgery, the use of Lupron (leuprolide for depot) will be discussed as a potential treatment to prevent regrowth of endometrial tissue. The patient has been informed that she can expect soreness for 48-72 hours following the outpatient procedure and that narcotic pain medication will be prescribed for 3-5 days. Exam General Limitations: no limitations General Appearance: alert, in no apparent distress and comfortable Head Head exam: atraumatic and normocephalic Eye Eye exam: Present normal appearance, PERRL and EOMI Neck Neck exam: Present normal inspection and full ROM Chest Chest inspection: Present normal inspection and symmetric chest wall rise; Absent tenderness Resp Respiratory exam: Present normal lung sounds bilaterally; Absent respiratory distress Card Cardiovascular exam: Present regular rate and normal rhythm Abdominal Abdominal exam: Present soft and normal bowel sounds; Absent tenderness, guarding, rebound or rigidity Neuro Neurological exam: Present alert and oriented X3 Psych Psychiatric exam: Present normal affect Results Objective Laboratory: - Date: 09/24/2024 - Blood group: B positive - Antibody screen: Negative - CBC: - Hemoglobin: 13.5 g/dL - Hematocrit: 40.6% - Platelets: 220 x 10^3/?L - Culture: Negative Office Procedures OB Clinic LOC & Office Proc's Nursing/Assessment Patient Status: Established Patient OB Clinic Nursing Assessment: BP Monitoring, Medication Reconciliation, Update PMH in EMR and Vital Signs OB Clinic Coordination of Care: Consent,records obtained, informed consent, Education Simp Pt/Fam, Results/Orders obtained and Staff clarify orders Established Patient Charge Established Patient Point Assignment: 80 Established Patient Point Charge: EP Level 3 (80-115) Assessment & Plan Diagnosis / Problem List (1) Endometriosis: Status: Acute (2) Abdominal pain, acute, left lower quadrant: Status: Acute Plan Monserrat Simpson, a 28-year-old female, presenting for follow-up on pelvic pain, scheduled for diagnostic laparoscopy to evaluate for endometriosis. Chronic pelvic pain Assessment: Patient presents with chronic pelvic pain of unspecified duration. Given the persistent nature of the symptoms and the decision to proceed with diagnostic laparoscopy, there is a high suspicion for endometriosis. Recent lab work (09-24-2024) shows normal hemoglobin (13.5), hematocrit (40.6), and platelet count (220), indicating no significant anemia or bleeding disorder. Blood type is B positive with negative antibody screen, which is relevant for potential surgical interventions. Plan: - Proceed with scheduled diagnostic laparoscopy on 10-08-2024 - Procedure to include examination of uterus, ovaries, fallopian tubes, bladder, and rectum - Remove any cysts or abnormal tissue if found - Preoperative instructions: - Patient to undergo pre-admission process, including nurse phone call for history and blood work - Check-in at 6-6:30 AM on the day of surgery (first case at 8 AM) - Detailed instructions to be provided 2-3 days prior to surgery - Arrange for someone to drive the patient home post-procedure - Postoperative management: - Prescribe narcotic pain medication for 3-5 days - Advise patient to avoid driving while on narcotic pain medication - Expect soreness for 48-72 hours post-surgery - Discuss Lupron (leuprolide depot) therapy post-surgery to prevent regrowth of potential endometriosis - Inform patient that most issues can be addressed laparoscopically, with a very low chance of conversion to open surgery
== END 2024-09-30 10:39 | disposition home or self-care (01) ==
LOC: HODSOBC 10:10
PROVIDERS: PCP Physician Assistant; Referring Provider Physician Assistant; Supervising Provider Obstetrics & Gynecology; Visit Provider Obstetrics & Gynecology
DX: R10.2 Pelvic and perineal pain (principal); R10.32 Left lower quadrant pain; G89.29 Other chronic pain
CPT/HCPCS: 99213; G0463

== ENCOUNTER 2024-10-02 14:00 | Emergency (ER) | payer MEDICAID, SELFPAY ==
[2024-10-02 14:26] VITALS: BP 147/97; PULSE 67; RESP 20; TEMP 36.6; O2SAT 99
--- NOTE | 2024-10-02 14:49 | XR_ITS ---
Examination: Pelvic ultrasound, transabdominal, complete Technique: Transabdominal ultrasound of the pelvis performed using grayscale imaging Date and time of exam: October 02, 2024 1509 hours INDICATIONS: Pelvic pain beginning a few months ago with vomiting today FINDINGS: Uterus 6.6 cm endometrial stripe 0.8 cm Small calcification in the cervix No uterine mass or intrauterine gestation Right ovary 2.5 cm arterial flow Left ovary 3.4 cm arterial flow IMPRESSION: No uterine mass or intrauterine gestation
--- NOTE | 2024-10-02 14:49 | PD.EDRME ---
Rapid Medical Screening Exam RME Arrival date/time: 10/02/24 14:00 28-year-old female with a history of endometriosis presents to the emergency room with a chief complaint of nausea and vomiting x 3 days I have greeted and performed a focused initial assessment of this patient. A comprehensive ED assessment and evaluation of the patient, analysis of all test results, and completion of the medical decision making process will be conducted by additional ED providers. Chief Complaint: Nausea/Vomiting/Diarrhea Vital signs: Vital Signs Temperature 97.9 F 10/02/24 14:26 Pulse Rate 67 10/02/24 14:26 Respiratory Rate 20 10/02/24 14:26 Blood Pressure 147/97 H 10/02/24 14:26 Pulse Oximetry (%) 99 10/02/24 14:26 Oxygen Delivery Method Room Air 10/02/24 14:26 Vital signs reviewed by provider: Yes
[2024-10-02] MEDS: ONDANSETRON ODT 4 MG TABRAP PO (15:00)
[2024-10-02 15:50] LABS: Basophils % (Auto) 0 % (0-2.5); Eosinophils % (Auto) 0 % (0-10); Hematocrit 41.4 % (36.0-46.0); Hemoglobin 14.6 g/dL (12.0-16.0); Immature Granulocytes % (Auto) 0 % (0-0); Immature Granulocytes Auto 0.07 Thou/mm3 (0.00-0.00); Lymphocytes # (Auto) 1.4 Thou/mm3 (1.0-4.8); Lymphocytes % (Auto) 9 % (10-50); Mean Corpuscular HGB Conc 35.3 g/dl (31.0-37.0); Mean Corpuscular Hemoglobin 30.1 pg (25.0-35.0); Mean Corpuscular Volume 85 fL (80-100); Monocytes # (Auto) 0.4 Thou/mm3 (0.0-0.8); Monocytes % (Auto) 2 % (0-12); Neutrophils # (Auto) 14.4 Thou/mm3 (1.8-7.7); Neutrophils % (Auto) 88 % (37-80); Nucleated Red Blood Cell % 0 /100 WBC (0); Platelet Count 234 Thou/mm3 (140-440); RDW Standard Deviation 36.1 fL (36.4-46.3); Red Blood Count 4.85 Miln/mm3 (4.00-5.20); White Blood Count 16.4 Thou/mm3 (3.6-11.0)
[2024-10-02 16:13] LABS: Alanine Aminotransferase 9 U/L (10-49); Albumin, Serum 4.9 gm/dL (3.5-5.0); Albumin/Globulin Ratio 1.7 (1.2-2.2); Alkaline Phosphatase 56 U/L (46-116); Anion Gap 12 (7-16); Aspartate Amino Transferase 20 U/L (0-34); BUN/Creatinine Ratio 11 Ratio (12-20); Bilirubin,Total 0.5 mg/dL (0.3-1.2); Blood Urea Nitrogen 9 mg/dL (9-23); Calcium 9.7 mg/dL (8.3-10.6); Calcium (Corrected) 9.7 mg/dL (8.5-10.1); Chloride 103 mMol/L (98-107); Creatinine (Component) 0.8 mg/dL (0.6-1.3); Estimated Creatinine Clearance 91.6 mL/min (>60); Globulin 2.9 gm/dL (2.3-3.5); Glucose 158 mg/dL (74-106); Lipase 26 U/L (12-53); Osmolality,Calculated 281 (275-295); Potassium 5.2 mMol/L (3.4-5.1); Sodium 140 mMol/L (136-145); Total Protein 7.8 gm/dL (5.7-8.2); eGFR > 60 See Note
--- NOTE | 2024-10-02 17:46 | PC.NURSE ---
MD made aware patient continue to have emesis after Zofran ODT. New order for Phenergan 12.5mg IMx1 now. Pharmacy aware.
[2024-10-02] MEDS: PROMETHAZINE INJ 25 MG/ML VIAL 12.5 MG IM (18:17)
--- NOTE | 2024-10-02 20:17 | PC.NURSE ---
[facility]
[2024-10-02 21:26] VITALS: BP 152/104; PULSE 66; RESP 16; TEMP 37.2; O2SAT 100
--- NOTE | 2024-10-02 22:56 | PD.EDADULT ---
ED General RME/HPI General Chief complaint: Nausea/Vomiting/Diarrhea Stated complaint: VOMITING SINCE 0900 Arrival date/time: 10/02/24 14:00 28-year-old female presents to the ED with a complaint of severe pelvic pain and vomiting. She states she has been having ongoing pelvic pain, worse during her menstrual cycles. She is scheduled for a laparoscopy next week with Dr. Vega. She indicates the vomiting started after the severe pain today. She is not taking her previously prescribed meloxicam as Dr. Vega took her off of this medication in preparation for her surgery. She denies any fever chills, upper respiratory complaints, or constipation. She does have some mild diarrhea. Mode of arrival: ambulatory Limitations: no limitations RME / HPI RME / HPI narrative: 10/02/24 14:00 28-year-old female with a history of endometriosis presents to the emergency room with a chief complaint of nausea and vomiting x 3 days I have greeted and performed a focused initial assessment of this patient. A comprehensive ED assessment and evaluation of the patient, analysis of all test results, and completion of the medical decision making process will be conducted by additional ED providers. Related Data Previous Rx's ?Medication ?Instructions ?Recorded ondansetron 8 mg disintegrating 8 mg PO Q8H PRN nausea and 10/08/24 tablet vomiting 30 days #60 tabs Allergies Allergy/AdvReac Type Severity Reaction Status Date / Time codeine Allergy Rash Verified 11/17/24 12:38 Review of Systems Review of Systems Systems Reviewed: All systems reviewed, normal except as documented ED Exam Narrative Physical exam: Pleasant 28-year-old female in moderate acute distress secondary to pain. She is alert and oriented. Lungs are clear, cardio regular rate and rhythm without murmurs, abdomen is soft with tenderness and guarding noted to the right and left pelvic regions as well as the suprapubic region. No rebound. General Limitations: Present no limitations Course Course Course Narrative: Labs reveal an elevated white count of 16.4, normal H&H and normal platelets. Chemistry panel reveals normal sodium, chloride, CO2 and gap. Potassium is minimally elevated at 5.2. BUN and creatinine are normal, glucose is elevated at 158, LFTs are normal, lipase is normal at 26. Urinalysis reveals 1+ protein, 4+ ketones, pH of 7.5, specific gravity of 1.032 with negative nitrites, negative leukocyte esterase and no bacteria. Urine hCG is negative. Pelvic ultrasound reveals: Uterus 6.6 cm endometrial stripe 0.8 cm. Small calcification in the cervix. No uterine mass or intrauterine gestation. Right ovary 2.5 cm arterial flow. Left ovary 3.4 cm arterial flow. She was given ondansetron 4 mg p.o., promethazine 12.5 mg IM, Compazine 10 mg IM, and morphine 5 mg IM. Quality Measures none Orders Category Date Time Status US pelvic complete Stat Exams 10/02/24 14:49 Completed CBC Stat Lab 10/02/24 15:32 Completed CMP [Comprehensive Metabolic Panel] Stat Lab 10/02/24 15:32 Completed HCG Qualitative,Urine Stat Lab 10/02/24 22:50 Completed Lipase Stat Lab 10/02/24 15:32 Completed UA [Urinalysis] Stat Lab 10/02/24 22:50 Completed Urine Culture Stat Lab 10/02/24 22:50 Completed Morphine Inj Med 10/02/24 23:17 Discontinued 5 mg IM X1 ONE Ondansetron Odt [Zofran Odt] Med 10/02/24 14:49 Discontinued 4 mg PO X1 ONE Prochlorperazine Inj [Compazine Inj] Med 10/02/24 22:49 Discontinued 10 mg IM X1 ONE Promethazine Inj [Phenergan Inj] Med 10/02/24 17:39 Discontinued 12.5 mg IM X1 ONE Vital Signs Vital signs: Vital Signs Temperature 97.9 F 10/02/24 14:26 Pulse Rate 67 10/02/24 14:26 Respiratory Rate 20 10/02/24 14:26 Blood Pressure 147/97 H 10/02/24 14:26 Pulse Oximetry (%) 99 10/02/24 14:26 Oxygen Delivery Method Room Air 10/02/24 14:26 Discharge Plan Plan Patient Disposition: HOME (Self Care) Discharge Disposition comment: Stable and improved Prescriptions/Referrals Prescriptions/Med Rec: No Action ondansetron 8 mg tablet,disintegrating 8 mg PO Q8H PRN (Reason: nausea and vomiting) 30 Days Qty: 60 0RF Patient Comments: DISSOLVE 1 TABLET ON TONGUE 3 TIMES A DAY NEEDED FOR NAUSEA AND VOMITING Referrals: No Primary/Family,Physician [Primary Care Provider] - In 1 week Problem List Clinical Impression: Nausea and vomiting in adult patient, Endometriosis Patient/Caregiver Discharge Instructions Education Materials: What Is Endometriosis?, ED MENSTRUAL CRAMPING, ED Vomiting (Adult) Additional Instructions: Follow-up with your primary care physician in 24 to 48 hours. Return to the ED for any new or worsening symptoms. Print Language: Palestinian Stand Alone Forms: Dianna Award Info., Patient Portal Info Letter PA/WATER SERVICE SUPERVISOR Supervising Physician PA/WATER SERVICE SUPERVISOR Supervising Physician: Dr Garces MDM Narrative MDM hospital course (for use when minimal MDM required): 28-year-old female presents to the ED with a complaint of severe pelvic pain and vomiting. She states she has been having ongoing pelvic pain, worse during her menstrual cycles. She is scheduled for a laparoscopy next week with Dr. Vega. She indicates the vomiting started after the severe pain today. She is not taking her previously prescribed meloxicam as Dr. Vega took her off of this medication in preparation for her surgery. She denies any fever chills, upper respiratory complaints, or constipation. She does have some mild diarrhea. Pleasant 28-year-old female in moderate acute distress secondary to pain. She is alert and oriented. Lungs are clear, cardio regular rate and rhythm without murmurs, abdomen is soft with tenderness and guarding noted to the right and left pelvic regions as well as the suprapubic region. No rebound. Labs reveal an elevated white count of 16.4, normal H&H and normal platelets. Chemistry panel reveals normal sodium, chloride, CO2 and gap. Potassium is minimally elevated at 5.2. BUN and creatinine are normal, glucose is elevated at 158, LFTs are normal, lipase is normal at 26. Urinalysis reveals 1+ protein, 4+ ketones, pH of 7.5, specific gravity of 1.032 with negative nitrites, negative leukocyte esterase and no bacteria. Urine hCG is negative. Pelvic ultrasound reveals: Uterus 6.6 cm endometrial stripe 0.8 cm. Small calcification in the cervix. No uterine mass or intrauterine gestation. Right ovary 2.5 cm arterial flow. Left ovary 3.4 cm arterial flow. She was given ondansetron 4 mg p.o., promethazine 12.5 mg IM, Compazine 10 mg IM, and morphine 5 mg IM. She was discharged home in stable and improved condition. Clinical Information Provided by: patient Medical Records reviewed [facility] and PCP / Clinic Medical Records additional comments: Dr. Vega believes her condition is likely related to endometriosis therefore the laparoscopic exam is scheduled next week. Meds/Rx considered, not ordered None Labs/Rad/Tests considered, not ordered None Chronic Illness/Social Conditions which may negatively complicate care or outcome(s)-explain: None or not applicable EKG EKG not done Labs Labs: Interpreted by ca Lab(s) Interpretation(s): As noted above Imaging Imaging Interpretation(s): Pelvic ultrasound is negative for acute pathology. Medication Administration(s) Medication Administration History Discontinued Medications Morphine Sulfate (Morphine Sulf Inj 10 Mg/Ml Vial) 5 mg IM X1 ONE Stop: 10/02/24 23:18 Last Admin: 10/02/24 23:26 Dose: 5 mg Documented By: SE Ondansetron HCl (Ondansetron Odt 4 Mg Tabrap) 4 mg PO X1 ONE; Protocol Stop: 10/02/24 14:50 Last Admin: 10/02/24 15:00 Dose: 4 mg Documented By: Prochlorperazine Edisylate (Prochlorperazine Inj 5 Mg/Ml Vial 2 Ml) 10 mg IM X1 ONE; Protocol Stop: 10/02/24 22:50 Last Admin: 10/02/24 23:26 Dose: 10 mg Documented By: SE Promethazine HCl (Promethazine Inj 25 Mg/Ml Vial) 12.5 mg IM X1 ONE; Protocol Stop: 10/02/24 17:40 Last Admin: 10/02/24 18:17 Dose: 12.5 mg Documented By: Patient was given ondansetron 4 mg ODT as well as promethazine 12.5 mg IM. She continued to have significant vomiting therefore she was given Reglan 10 mg IM as well as morphine 5 mg IM. Diagnosis Differential Diagnosis ED Complaint MDM: Menorrhagia, dysmenorrhea, ovarian cyst, ectopic , endometriosis Diagnoses ruled out and/or further discussions: Ovarian cyst and ectopic ruled out with pelvic ultrasound.
[2024-10-02 23:00] VITALS: BP 155/93; PULSE 67; RESP 16; TEMP 37.3; O2SAT 100
[2024-10-02 23:09] LABS: Collection Type, Urine Clean Catch; RBC,Urine 0 /hpf (0-3)
[2024-10-02 23:10] LABS: WBC,Urine 0 /hpf (0-5)
[2024-10-02] MEDS: PROCHLORPERAZINE INJ 5 MG/ML VIAL 2 ML 10 MG IM (23:26)
[2024-10-02] MEDS: MORPHINE SULF INJ 10 MG/ML VIAL 5 MG IM (23:26)
[2024-10-02 23:29] LABS: Bilirubin,Urine Negative (Negative); Blood,Urine Negative (Negative); Clarity,Urine Clear (Clear/Hazy); Color,Urine Yellow (Lt Yel-Yel); Glucose, Urine Negative (Negative); Ketones,Urine 4+ (Negative); Leukocyte Esterase,Urine Negative (Negative); Nitrite,Urine Negative (Negative); PH,Urine 7.5 (5.0-7.0); Protein,Urine 1+ (Neg - Trace); Specific Gravity,Urine 1.032 (1.001-1.035); Squamous Epithelial Cell,Urine 2 /hpf (0-5); Urobilinogen,Urine Negative mg/dL (0.0-1.0)
[2024-10-02 23:38] LABS: HCG Qualitative,Urine Negative
== END 2024-10-02 23:35 | disposition home or self-care (01) ==
PROVIDERS: Nurse Practitioner Family; Emergency Provider Family Medicine
DX: N80.9 Endometriosis, unspecified (principal); R11.2 Nausea with vomiting, unspecified
CPT/HCPCS: 36415; 76856; 80053; 81001; 81025; 83690; 85025; 87086; 96372; 99284; J0780; J2270; J2550; Q0162

== ENCOUNTER 2024-10-08 05:35 | Day surgery (SDC) | payer MEDICAID, SELFPAY ==
[2024-10-07 06:39] VITALS: BMI 19.0
[2024-10-07 07:36] LABS: Basophils % (Auto) 0 % (0-2.5); Eosinophils # (Auto) 0.1 Thou/mm3 (0.0-0.5); Eosinophils % (Auto) 1 % (0-10); Hematocrit 48.5 % (36.0-46.0); Hemoglobin 17.4 g/dL (12.0-16.0); Immature Granulocytes % (Auto) 0 % (0-0); Immature Granulocytes Auto 0.02 Thou/mm3 (0.00-0.00); Lymphocytes % (Auto) 30 % (10-50); Mean Corpuscular HGB Conc 35.9 g/dl (31.0-37.0); Mean Corpuscular Hemoglobin 29.9 pg (25.0-35.0); Mean Corpuscular Volume 84 fL (80-100); Monocytes # (Auto) 0.8 Thou/mm3 (0.0-0.8); Monocytes % (Auto) 8 % (0-12); Neutrophils # (Auto) 5.9 Thou/mm3 (1.8-7.7); Neutrophils % (Auto) 60 % (37-80); Nucleated Red Blood Cell % 0 /100 WBC (0); Platelet Count 351 Thou/mm3 (140-440); RDW Standard Deviation 35.7 fL (36.4-46.3); Red Blood Count 5.81 Miln/mm3 (4.00-5.20); White Blood Count 9.8 Thou/mm3 (3.6-11.0)
[2024-10-07 07:44] LABS: HCG,Qualitative Serum Negative
[2024-10-07 08:00] LABS: Alanine Aminotransferase 8 U/L (10-49); Albumin, Serum 5.7 gm/dL (3.5-5.0); Albumin/Globulin Ratio 1.8 (1.2-2.2); Alkaline Phosphatase 58 U/L (46-116); Anion Gap 13 (7-16); Aspartate Amino Transferase 11 U/L (0-34); BUN/Creatinine Ratio 18 Ratio (12-20); Bilirubin,Total 0.9 mg/dL (0.3-1.2); Blood Urea Nitrogen 16 mg/dL (9-23); Calcium 10.5 mg/dL (8.3-10.6); Calcium (Corrected) 10.5 mg/dL (8.5-10.1); Carbon Dioxide 29.7 mMol/L (20.0-31.0); Chloride 97 mMol/L (98-107); Creatinine (Component) 0.9 mg/dL (0.6-1.3); Estimated Creatinine Clearance 77.5 mL/min (>60); Globulin 3.1 gm/dL (2.3-3.5); Glucose 124 mg/dL (74-106); Osmolality,Calculated 281 (275-295); Potassium 4.2 mMol/L (3.4-5.1); Sodium 140 mMol/L (136-145); Total Protein 8.8 gm/dL (5.7-8.2); eGFR > 60 See Note
[2024-10-08] VITALS (9 sets, daily range): BP systolic 106–142; BP diastolic 67–103; PULSE 85–110; RESP 12–20; TEMP 36.2–36.6; O2SAT 97–100; BMI 18.5
--- NOTE | 2024-10-08 08:09 | PD.GYNPROC ---
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 The patient was brought to the operating room, and her identity was verified using two identifiers. She was placed on the operating table, and general anesthesia was administered with successful airway management. The patient was then positioned in dorsal lithotomy with Jason stirrups. The abdomen and perineum were prepped and draped in the usual sterile fashion. The bladder was emptied using a straight catheter. A sponge stick was placed in the vagina for uterine manipulation. Attention was turned to the abdomen. A 5 mm vertical infraumbilical incision was made using a scalpel. Entry into the peritoneal cavity was achieved under direct visualization using an Optiview 5 mm trocar. Once intra-abdominal placement was confirmed, pneumoperitoneum was established and maintained at 15 mmHg. The laparoscope was introduced and a thorough survey was initiated. The uterus and both adnexa were visualized and appeared grossly normal. Inspection of the cul-de-sac revealed increased vascularity, suggestive of a possible inflammatory or endometriotic process. Additionally, filmy adhesions involving the large intestine were noted in both the right and left lower quadrants, without significant distortion of pelvic anatomy. An accessory 5 mm port was placed in the right lower quadrant, approximately 2 cm superior and medial to the anterior superior iliac spine. No operative intervention was performed. Hemostasis was verified at the port sites. All instruments were removed, pneumoperitoneum was desufflated, and laparoscopic ports were withdrawn. Skin incisions were closed with 4-0 Monocryl in a subcuticular fashion. The skin was cleaned and sterile dressings were applied. The patient was undraped, anesthesia was reversed, and she was transferred to the recovery room awake and in stable condition. The patient tolerated the procedure well. All sponge, instrument, and lap counts were correct ?2. No complications were encountered. Specimen: none Estimated blood loss (ml): 10 Complications: none Surgical staff Operation Date: 10/08/24 07:30 Case Staff PARTS SALES COUNTERPERSON: Kunal Hood RN First Assistant: Shameka Shah Diagnosis Discharge Diagnosis (1) Abdominal pain, acute, left lower quadrant: Status: Acute (2) Endometriosis: Status: Acute (3) Pelvic and perineal pain: Status: Acute Problem List Completed Was Problem List Reviewed/Reconciled?: Yes
--- NOTE | 2024-10-08 08:15 | SUR.PHASEI ---
pt received from OR in recovery bay 1. pt asleep but responds to voice, breathing unlabored on 8l oxymask. v/s stable. pt dressing to abd dermabond x3 cdi. report received from Felicita RENNER and Fidel FRANCIS.
--- NOTE | 2024-10-08 08:44 | SUR.PHASEI ---
pt able to tolerate oral fluids without difficulty swallowing or nausea/vomiting.
[2024-10-08] MEDS: HYDROcodone/APAP 5/325 TABLET 1 TAB PO (09:18)
--- NOTE | 2024-10-08 09:47 | SUR.PHASEII ---
pt awake and alert, breathing unlabored on room air. v/s stable. pt dressing to abd dermabond x2 cdi. pt able to ambulate to wheelchair with steady gait. d/c instructions given with s/o Dhruv in Hallway (child present) and pt in room, all questions answered. pt d/c via wheelchair with all belongings.
== END 2024-10-08 09:47 | disposition home or self-care (01) ==
PROVIDERS: PCP Family Medicine; Referring Provider Obstetrics & Gynecology; Visit Provider Obstetrics & Gynecology
PROC: (CPT 49320; principal; 2024-10-08 07:30)
DX: N80.9 Endometriosis, unspecified (principal); R10.2 Pelvic and perineal pain; G89.29 Other chronic pain
CPT/HCPCS: 49320; 36415; 80053; 84703; 85025; 86850; 86900; 86901; A4217; A4649; J0131; J1171; J2250; J2704; J3010; J3490; A9270; J1596

== ENCOUNTER 2024-10-15 10:25 | Outpatient (AMB) | payer MEDICAID, SELFPAY ==
--- NOTE | 2024-10-15 10:26 | AMB.OBPP ---
Allergies/Home Meds Allergies & Medications Allergies codeine Allergy (Verified 10/08/24 06:17) Rash Intake Smoking Status Smoking Status: Never smoker SUPERVISOR GLUING: Past Medical History Past Medical History: No Hx Neurological Disorders, No Hx Breast Cancer, No Hx Cardiac Disorders, No Hx Cancer, No Hx Blood Disorders, Yes Hx Gastrointestinal Disorders, No Hx Renal Disease, No Hx Diabetes Mellitus Type 1, No Hx Diabetes Mellitus Type 2 and Yes Hx Tubal Ligation Questionnaires Social History Living Situation History Lives With: Significant Other Housing: House Tobacco History Smoking Status: Never smoker Second Hand Smoke Exposure: Yes Alcohol History Alcohol Intake: Never Substance Use History Substance Use: last THC use 11/25/2019
[2024-10-15 10:31] VITALS: BP 109/77; PULSE 72; RESP 18; TEMP 36.2; O2SAT 98
--- NOTE | 2024-10-15 10:33 | AMB.GYNCLNOT ---
Vital Signs 10/15/24 10:31 10/15/24 10:35 Weight 54.658 kg Weight Measurement Method Standing Scale BP 109/77 109/77 Blood Pressure Source Automatic Cuff Blood Pressure Location Left Upper Arm Position Sitting Respiration 18 18 Pulse 72 72 Pulse Source Monitor Temp 97.2 F 97.2 F Temp Source Oral Pulse Oximetry (%) 98 98 Oxygen Delivery Method Room Air Allergies/Home Meds Allergies & Medications Allergies codeine Allergy (Verified 10/15/24 10:34) Rash Medication Reconciliation lactulose 10 gram/15 mL oral solution 15 ml PO QDAY 30 days #450 mL 10/08/24 [Rx] ondansetron 8 mg disintegrating tablet 8 mg PO Q8H PRN nausea and vomiting 30 days #60 tabs 10/08/24 [Rx Confirmed 10/08/24] Intake Visit Data Collection New Patient or Established: Established Patient (seen at [facility] within 3 years) Reason for Visit:: POST OP Seen by Clinical Staff ONLY (RN/MA): No Beer Merchant Required: No Do You Feel Safe at Home: Yes Authorities Contacted: N/A PCP or OBGYN visit in last 3 months: Yes Date of Last PCP or OBGYN visit: 10/08/24 Hx Now: No Are you currently on any form of Control: No Last menstrual period: 08/29/24 Pain Present Currently: No Pain Scale Used: Gates-Villalpando/Numerical Pain scale:: 0 Smoking Status Smoking Status: Never smoker 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 Menstrual regularity: regular Flow: heavy Monthly: Yes How many days does period last: 5 Age at menarche: 15 Currently sexually active: Yes MEDICAL/SURGERY REGISTERED NURSE: Past Medical History Past Medical History: No Hx Neurological Disorders, No Hx Breast Cancer, No Hx Cardiac Disorders, No Hx Cancer, No Hx Blood Disorders, Yes Hx Gastrointestinal Disorders, No Hx Renal Disease, No Hx Diabetes Mellitus Type 1, No Hx Diabetes Mellitus Type 2 and Yes Hx Tubal Ligation Questionnaires Covid-19 Vaccine Questionnaire Has patient been vacinated for Covid-19 Have you been vacinated for Covid-19: Yes PHQ-9 PHQ-2 Over the last 2 weeks, how often have you been bothered by any of the following problems? 1. Little interest or pleasure in doing things: not at all 2. Feeling down, depressed, or hopeless: not at all Total score: 0 PHQ-9 3. Trouble falling or staying asleep, or sleeping too much: Not at all 4. Feeling tired or having little energy: Not at all 5. Poor appetite or overeating: Not at all 6. Feeling bad about yourself - or that you are a failure or have let yourself or your family down: Not at all 7. Trouble concentrating on things, such as reading the newspaper or watching television: Not at all 8. Moving or speaking so slowly that other people could have noticed? - Or the opposite - being so fidgety or restless that you have been moving around a lot more than usual: not at all 9. Thoughts that you would be better off or of hurting yourself in some way: Not at all Total score: 0 If you checked off any problems, how difficult have these problems made it for you to do your work, take care of things at home, or get along with other people?: not difficult at all Source: Developed by Drs. Mack Bowers, Sahra Sarmiento, Shon Rojas and colleagues, with an educational anabella from [email or web address]. Depression screen completed yes Social History Living Situation History Lives With: Significant Other Housing: House Tobacco History Smoking Status: Never smoker Second Hand Smoke Exposure: Yes Alcohol History Alcohol Intake: Never Substance Use History Substance Use: last THC use 11/25/2019 Domestic Abuse History Do You Feel Safe at Home: Yes History of Present Illness HPI Narrative Monserrat Simpson presents for a one-week postoperative follow-up after undergoing diagnostic laparoscopy for endometriosis and chronic pelvic pain on October 08, 2024. The patient reports no new symptoms or complications since the surgery. During the laparoscopy, no endometriosis deposits were found. However, the procedure revealed congested pelvic veins consistent with pelvic congestion syndrome, which may be contributing to her pain and pressure symptoms. Additionally, adenomyosis was observed in the uterus, potentially causing discomfort during menstruation and other times. The surgery also revealed adhesive bands in the bowel structures, which may be a minor contributor to her pain. The patient reports having one child and expresses no desire for future pregnancies. She is currently on narcotic pain medications for symptom management, which are impacting her daily life and functioning. Obstetric History: - GPAL: A0 L1 - One living child, no details provided about the or delivery Medical History: - Chronic pelvic pain - Pelvic congestion syndrome Surgical History: - Diagnostic laparoscopy on 10/08/2024 for endometriosis and chronic pelvic pain Medications and Supplements: - Narcotic pain medicines Social History: - Has one child, does not plan to have more ROS: Genitourinary: Positive for pelvic pain, pelvic pressure. Exam General General Appearance: alert, in no apparent distress and healthy appearing Head Head exam: atraumatic Neck Neck exam: Present normal inspection and trachea midline Chest Chest inspection: Present normal inspection and symmetric chest wall rise External exam: Present normal external exam; Absent tenderness Neuro Neurological exam: Present oriented X3 Psych Psychiatric exam: Present normal affect and normal mood Office Procedures OB Clinic LOC & Office Proc's Nursing/Assessment Patient Status: Established Patient OB Clinic Nursing Assessment: Medication Reconciliation, Update PMH in EMR and Vital Signs OB Clinic Coordination of Care: Education Complex Pt/Fam, Consent,records obtained, informed consent, Lab and Imaging orders, Results/Orders obtained and Staff clarify orders Established Patient Charge Established Patient Point Assignment: 85 Established Patient Point Charge: EP Level 3 (80-115) Assessment & Plan Diagnosis / Problem List (1) Pelvic and perineal pain: Status: Acute (2) Other acute postprocedural pain: Status: Acute (3) Endometriosis: Status: Acute Plan Chronic Pelvic Pain: - Diagnostic laparoscopy performed on 10/08/2024. - No evidence of endometriosis found. - Positive findings for pelvic congestion syndrome. - Adenomyosis observed. - Multiple adhesive bands noted in bowel structures. Treatment Options: - Permanent solution: Hysterectomy - Temporary solution: Lupron injections (maximum 5 years) Counseling: - Discussed Lupron side effects: - Potential menopausal symptoms - Bone density loss - Hot flashes - Mood changes - Temporary hormonal suppression - Hysterectomy risks/benefits at age 28: - Permanent fertility loss - Potential early surgical menopause - Resolution of current pelvic pain symptoms - Long-term hormonal and quality of life implications Plan: - Wait one month for surgical recovery. - Schedule follow-up after next menstrual period. - Initiate Lupron therapy: - Administer 2-3 Lupron injections as trial. - Assess benefit and determine next steps. - Discuss fertility desires and treatment implications with family. - Plan to wean off narcotic pain medications. - Provide surgical pictures at next appointment. - Follow up in one month.
[2024-10-15 10:35] VITALS: BP 109/77; PULSE 72; RESP 18; TEMP 36.2; O2SAT 98
== END 2024-10-15 10:47 | disposition home or self-care (01) ==
LOC: HODSOBC 10:25
PROVIDERS: PCP Family Medicine; Referring Provider Family Medicine; Supervising Provider Obstetrics & Gynecology; Visit Provider Obstetrics & Gynecology
DX: G89.18 Other acute postprocedural pain (principal); R10.2 Pelvic and perineal pain; N80.03 Adenomyosis of the uterus; Z98.890 Other specified postprocedural states
CPT/HCPCS: 99213; G0463

== ENCOUNTER 2024-11-13 08:07 | Outpatient (AMB) | payer MEDICAID, SELFPAY ==
[2024-11-13 08:36] VITALS: BP 114/74; PULSE 69; RESP 18; TEMP 36.7; O2SAT 98
--- NOTE | 2024-11-13 08:36 | AMB.GYNCLNOT ---
Vital Signs 11/13/24 08:36 Weight 51.71 kg Weight Measurement Method Standing Scale BP 114/74 Blood Pressure Source Automatic Cuff Blood Pressure Location Left Upper Arm Position Sitting Respiration 18 Pulse 69 Pulse Source Monitor Temp 98.0 F Temp Source Oral Pulse Oximetry (%) 98 Oxygen Delivery Method Room Air Allergies/Home Meds Allergies & Medications Allergies codeine Allergy (Verified 11/13/24 08:37) Rash Medication Reconciliation ondansetron 8 mg disintegrating tablet 8 mg PO Q8H PRN nausea and vomiting 30 days #60 tabs 10/08/24 [Rx Confirmed 11/13/24] Intake Visit Data Collection New Patient or Established: Established Patient (seen at [facility] within 3 years) Reason for Visit:: FOLLOW UP SURGERY Seen by Clinical Staff ONLY (RN/MA): No Customer Service Advisor Required: No Do You Feel Safe at Home: Yes Authorities Contacted: N/A PCP or OBGYN visit in last 3 months: Yes Date of Last PCP or OBGYN visit: 10/15/24 Hx Now: No Are you currently on any form of Control: No Last menstrual period: 11/04/24 Pain Present Currently: No Pain Scale Used: Gates-Villalpando/Numerical Pain scale:: 0 Smoking Status Smoking Status: Never smoker 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 Menstrual regularity: regular Flow: normal Monthly: Yes How many days does period last: 5 Age at menarche: 15 Menopausal: No Currently sexually active: Yes 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 1. Little interest or pleasure in doing things: not at all 2. Feeling down, depressed, or hopeless: not at all Total score: 0 PHQ-9 3. Trouble falling or staying asleep, or sleeping too much: Not at all 4. Feeling tired or having little energy: Not at all 5. Poor appetite or overeating: Not at all 6. Feeling bad about yourself - or that you are a failure or have let yourself or your family down: Not at all 7. Trouble concentrating on things, such as reading the newspaper or watching television: Not at all 8. Moving or speaking so slowly that other people could have noticed? - Or the opposite - being so fidgety or restless that you have been moving around a lot more than usual: not at all 9. Thoughts that you would be better off or of hurting yourself in some way: Not at all Total score: 0 If you checked off any problems, how difficult have these problems made it for you to do your work, take care of things at home, or get along with other people?: not difficult at all Source: Developed by Drs. Mack Bowers, Sahra Sarmiento, Shon Rojas and colleagues, with an educational anabella from [employer]. Depression screen completed yes Social History Living Situation History Lives With: Significant Other Housing: House Tobacco History Smoking Status: Never smoker Second Hand Smoke Exposure: Yes Alcohol History Alcohol Intake: Never Substance Use History Substance Use: last THC use 11/25/2019 Domestic Abuse History Do You Feel Safe at Home: Yes History of Present Illness HPI Narrative Patient reports ongoing severe pelvic pain that has become unbearable, stating I can't take the pain no more. She specifically mentions feeling pain in her tailbone. Additionally, she describes new symptoms of dizziness, particularly when standing up quickly, accompanied by visual disturbances: I have to sit right back down, I end up seeing spots. Patient expresses a strong desire for a hysterectomy due to the severity and impact of her pain on daily life. She is a 28-year-old woman with a history of chronic debilitating pelvic pain, currently managed with opioids under PCP supervision. She previously underwent diagnostic laparoscopy revealing pelvic congestion syndrome. The patient's symptoms appear to be significantly affecting her quality of life and daily functioning, prompting her to seek more definitive treatment options. She is currently unable to work due to chronic debilitating pelvic pain. At her last appointment, she was counseled about treatment options and provided educational materials on Lupron and elagolix. Review of Systems Review of Systems Systems Reviewed: All systems reviewed, normal except as documented Exam General General Appearance: alert, in no apparent distress and healthy appearing Head Head exam: atraumatic Neck Neck exam: Present normal inspection and trachea midline Chest Chest inspection: Present normal inspection and symmetric chest wall rise External exam: Present normal external exam; Absent tenderness Neuro Neurological exam: Present oriented X3 Psych Psychiatric exam: Present normal affect and normal mood Office Procedures OB Clinic LOC & Office Proc's Nursing/Assessment Patient Status: Established Patient OB Clinic Nursing Assessment: Medication Reconciliation, Update PMH in EMR and Vital Signs OB Clinic Coordination of Care: Consent,records obtained, informed consent, Education Simp Pt/Fam, Lab and Imaging orders, Results/Orders obtained and Staff clarify orders Established Patient Charge Established Patient Point Assignment: 80 Established Patient Point Charge: EP Level 3 (80-115) Assessment & Plan Diagnosis / Problem List (1) Pelvic and perineal pain: Status: Acute (2) Endometriosis: Status: Acute Plan Chronic Pelvic Pain with Pelvic Congestion Syndrome Plan: - Proceed with laparoscopic hysterectomy. - Obtain informed consent for hysterectomy procedure. - Initiate insurance approval process for hysterectomy. - Document pain severity and impact on daily life for medical necessity. - Instruct patient to follow up in 2 weeks if not contacted about insurance approval. - Anticipate potential need for patient to sign consent forms. 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
== END 2024-11-13 09:17 | disposition home or self-care (01) ==
LOC: HODSOBC 08:07
PROVIDERS: PCP Family Medicine; Referring Provider Family Medicine; Supervising Provider Obstetrics & Gynecology; Visit Provider Obstetrics & Gynecology
DX: N80.9 Endometriosis, unspecified (principal); R10.2 Pelvic and perineal pain; G89.29 Other chronic pain; N94.89 Other specified conditions associated with female genital organs and menstrual cycle
CPT/HCPCS: 99213; G0463

== ENCOUNTER 2024-11-17 12:34 | Emergency (ER) | payer MEDICAID, SELFPAY ==
[2024-11-17 12:36] VITALS: BMI 19.1
[2024-11-17 13:16] VITALS: BP 153/93; PULSE 74; RESP 20; TEMP 37.5; O2SAT 99
--- NOTE | 2024-11-17 13:18 | PD.EDRME ---
Rapid Medical Screening Exam RME Arrival date/time: 11/17/24 12:34 28-year-old female presents to the emergency department for complaints of abdominal pain nausea vomiting patient reports having pelvic congestion syndrome patient reports he is followed by Dr. Vega and is scheduled to have surgery Chief Complaint: Abdominal Pain Time Seen by Provider: 11/17/24 13:06 Vital signs: Vital Signs Temperature 99.5 F 11/17/24 13:16 Pulse Rate 74 11/17/24 13:16 Respiratory Rate 20 11/17/24 13:16 Blood Pressure 153/93 H 11/17/24 13:16 Pulse Oximetry (%) 99 11/17/24 13:16 Oxygen Delivery Method Room Air 11/17/24 13:16
[2024-11-17] MEDS: METOCLOPRAMIDE INJ 5 MG/ML VIAL 2 ML 10 MG IM (13:32)
[2024-11-17 14:04] LABS: Basophils % (Auto) 0 % (0-2.5); Eosinophils % (Auto) 0 % (0-10); Hematocrit 40.1 % (36.0-46.0); Hemoglobin 13.6 g/dL (12.0-16.0); Immature Granulocytes % (Auto) 0 % (0-0); Immature Granulocytes Auto 0.05 Thou/mm3 (0.00-0.00); Lymphocytes # (Auto) 1.3 Thou/mm3 (1.0-4.8); Lymphocytes % (Auto) 9 % (10-50); Mean Corpuscular HGB Conc 33.9 g/dl (31.0-37.0); Mean Corpuscular Hemoglobin 30.2 pg (25.0-35.0); Mean Corpuscular Volume 89 fL (80-100); Monocytes # (Auto) 0.2 Thou/mm3 (0.0-0.8); Monocytes % (Auto) 2 % (0-12); Neutrophils # (Auto) 12.3 Thou/mm3 (1.8-7.7); Neutrophils % (Auto) 89 % (37-80); Nucleated Red Blood Cell % 0 /100 WBC (0); Platelet Count 262 Thou/mm3 (140-440); RDW Standard Deviation 41.1 fL (36.4-46.3); White Blood Count 13.8 Thou/mm3 (3.6-11.0)
[2024-11-17 14:24] LABS: HCG,Qualitative Serum Negative
[2024-11-17 14:33] LABS: Alanine Aminotransferase 9 U/L (10-49); Albumin, Serum 4.5 gm/dL (3.5-5.0); Alkaline Phosphatase 56 U/L (46-116); Anion Gap 9 (7-16); Aspartate Amino Transferase 15 U/L (0-34); BUN/Creatinine Ratio 11 Ratio (12-20); Bilirubin,Total 0.3 mg/dL (0.3-1.2); Blood Urea Nitrogen 8 mg/dL (9-23); Calcium 9.5 mg/dL (8.3-10.6); Calcium (Corrected) 9.5 mg/dL (8.5-10.1); Carbon Dioxide 26.6 mMol/L (20.0-31.0); Chloride 104 mMol/L (98-107); Creatinine (Component) 0.7 mg/dL (0.6-1.3); Estimated Creatinine Clearance 100.3 mL/min (>60); Globulin 2.3 gm/dL (2.3-3.5); Glucose 153 mg/dL (74-106); Lipase 25 U/L (12-53); Osmolality,Calculated 280 (275-295); Potassium 4.6 mMol/L (3.4-5.1); Sodium 140 mMol/L (136-145); Total Protein 6.8 gm/dL (5.7-8.2); eGFR > 60 See Note
--- NOTE | 2024-11-17 14:40 | PC.NURSE ---
PT STATES THE NAUSEA MEDICATION DID NOT HELP AND THAT SHE IS IN A LOT OF PAIN IN HER ABD, 02/03. WAITING FOR ROOM IN THE BACK OF THE ER.
--- NOTE | 2024-11-17 14:56 | PC.NURSE ---
NO ANSWER WHEN CALLED INSIDE AND OUTSIDE.
--- NOTE | 2024-11-17 14:59 | PC.NURSE ---
CALLED FOR PT FROM LOBBY/OUTSIDE, NO [email or web address]@ [phone]
--- NOTE | 2024-11-17 15:02 | PC.NURSE ---
NO ANSWER WHEN CALLED INSIDE AND OUTSIDE.
[2024-11-17 15:29] LABS: Collection Type, Urine Clean Catch
--- NOTE | 2024-11-17 15:52 | PC.NURSE ---
pt no answer for room assignment at [address] [place] [address], will be charted
[2024-11-17 16:01] LABS: Bilirubin,Urine Negative (Negative); Blood,Urine Negative (Negative); Clarity,Urine Clear (Clear/Hazy); Color,Urine Lt-Yellow (Lt Yel-Yel); Culture Indicated,Urine Not Indicated; Glucose, Urine Negative (Negative); Ketones,Urine 4+ (Negative); Leukocyte Esterase,Urine Negative (Negative); Nitrite,Urine Negative (Negative); PH,Urine 7.5 (5.0-7.0); Protein,Urine Trace (Neg - Trace); RBC,Urine 4 /hpf (0-3); Specific Gravity,Urine 1.031 (1.001-1.035); Squamous Epithelial Cell,Urine 2 /hpf (0-5); Urobilinogen,Urine Negative mg/dL (0.0-1.0); WBC,Urine 1 /hpf (0-5)
[2024-11-17 16:30] LABS: Amphetamine/Methamp Scrn,U Negative (Negative); Barbiturate Screen,Urine Negative (Negative); Benzodiazepines Screen,Urine Negative (Negative); Benzoylecgonine Screen, Ur Negative (Negative); Fentanyl Screen,Urine Negative (Negative); Opiate Screen,Urine Positive (Negative); THC Screen,Urine Positive (Negative)
== END 2024-11-17 15:53 | disposition left against medical advice (07) ==
LOC: SERX 16:04
PROVIDERS: Nurse Practitioner Primary Care; Emergency Provider Family Medicine
DX: R10.9 Unspecified abdominal pain (principal); R11.2 Nausea with vomiting, unspecified; Z53.29 Procedure and treatment not carried out because of patient's decision for other reasons
CPT/HCPCS: 36415; 80053; 80307; 81001; 83690; 84703; 85025; 99281; J2765

== ENCOUNTER 2025-01-11 13:46 | Observation (INO) | payer MEDICAID, SELFPAY ==
[2025-01-08 08:13] VITALS: BMI 18.8
[2025-01-08 09:14] LABS: HCG,Qualitative Serum Negative
[2025-01-08 09:18] LABS: Basophils # (Auto) 0.0 Thou/mm3 (0.0-0.2); Basophils % (Auto) 1 % (0-2.5); Eosinophils # (Auto) 0.1 Thou/mm3 (0.0-0.5); Eosinophils % (Auto) 1 % (0-10); Hematocrit 37.9 % (36.0-46.0); Hemoglobin 12.1 g/dL (12.0-16.0); Immature Granulocytes Auto 0.00 Thou/mm3 (0.00-0.00); Lymphocytes # (Auto) 1.6 Thou/mm3 (1.0-4.8); Lymphocytes % (Auto) 41 % (10-50); Mean Corpuscular HGB Conc 31.9 g/dl (31.0-37.0); Mean Corpuscular Hemoglobin 29.7 pg (25.0-35.0); Mean Corpuscular Volume 93 fL (80-100); Monocytes # (Auto) 0.3 Thou/mm3 (0.0-0.8); Monocytes % (Auto) 9 % (0-12); Neutrophils # (Auto) 1.9 Thou/mm3 (1.8-7.7); Neutrophils % (Auto) 48 % (37-80); Nucleated Red Blood Cell # 0.00 Thou/mm3 (0.00-0.00); Nucleated Red Blood Cell % 0 /100 WBC (0); Platelet Count 235 Thou/mm3 (140-440); RDW Standard Deviation 43.8 fL (36.4-46.3); Red Blood Count 4.07 Miln/mm3 (4.00-5.20); White Blood Count 3.9 Thou/mm3 (3.6-11.0)
[2025-01-08 09:19] LABS: Alanine Aminotransferase < 7 U/L (10-49); Albumin, Serum 4.8 gm/dL (3.5-5.0); Albumin/Globulin Ratio 2.4 (1.2-2.2); Alkaline Phosphatase 50 U/L (46-116); Anion Gap 7 (7-16); Aspartate Amino Transferase 18 U/L (0-34); BUN/Creatinine Ratio 9 Ratio (12-20); Bilirubin,Total 0.4 mg/dL (0.3-1.2); Blood Urea Nitrogen 7 mg/dL (9-23); Calcium 9.9 mg/dL (8.3-10.6); Calcium (Corrected) 9.9 mg/dL (8.5-10.1); Carbon Dioxide 28.9 mMol/L (20.0-31.0); Chloride 105 mMol/L (98-107); Creatinine (Component) 0.8 mg/dL (0.6-1.3); Estimated Creatinine Clearance 85.8 mL/min (>60); Globulin 2.0 gm/dL (2.3-3.5); Glucose 77 mg/dL (74-106); Osmolality,Calculated 278 (275-295); Potassium 4.6 mMol/L (3.4-5.1); Sodium 141 mMol/L (136-145); Total Protein 6.8 gm/dL (5.7-8.2); eGFR > 60 See Note
[2025-01-11] VITALS (12 sets, daily range): BP systolic 108–157; BP diastolic 78–104; PULSE 61–79; RESP 12–97; TEMP 36.1–37.2; O2SAT 98–100; BMI 21.6; BMI 23.2
--- NOTE | 2025-01-11 08:39 | ESHP_ITS ---
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 LAZAR is a 29 year old female with a history of chronic intractable pelvic pain and severe endometriosis/adenomyosis who is presenting for total laparoscopic hysterectomy. Patient has been previously worked up, counseled and given all treatment options. She also underwent diagnostic laparoscopy earlier in the year with no significant positive findings. After review of all options patient had elected to proceed with laparoscopic hysterectomy. 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 Vital Signs Temp Pulse Resp BP Pulse Ox 97.6 F 73 14 108/78 99 01/11/25 08:15 01/11/25 08:15 01/11/25 08:15 01/11/25 08:15 01/11/25 08:15 Constitutional Constitutional: no acute distress Routine HEENT Exam Head: Present normocephalic and atraumatic Eye: Present EOMI and PERRL ENT: Present mucous membranes moist Routine Neck Exam Neck: Present supple and trachea midline Routine Respiratory Exam Respiratory: Present chest non-tender, lungs clear, normal breath sounds and no resp distress Routine Cardiovascular Exam Cardiovascular: Present RRR Routine Abdominal Exam Abdominal: Present soft and normoactive bowel sounds Routine Extremities Exam Extremities: Present full ROM Routine Skin Exam Skin: Present intact and dry Routine Neurological Exam Neurological: Present alert, oriented X3 and CN II-XII intact Routine Psychiatric Exam Psychiatric: Present normal affect and normal thought process 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
--- NOTE | 2025-01-11 12:09 | PD.GYNPROC ---
Operative Note - SECURITY MESSENGER Procedure Date of procedure: 01/11/25 Procedure Performed: Total laparoscopic hysterectomy bilateral partial salpingectomy, Cystoscopy Indication: 29-year-old with severe intractable chronic pelvic pain Endometriosis Anesthesia type: General Procedure description: Informed consent was obtained and the patient was brought to the operating room, where identity was confirmed with two patient identifiers. General anesthesia was administered and the patient was placed in the dorsal lithotomy position. The abdomen and perineum were prepped and draped in the usual sterile fashion, and a Santana catheter was inserted for continuous drainage. A weighted speculum was placed, and the cervix was visualized and grasped with a single-tooth tenaculum. The uterus was sounded to 8 cm, and the cervix was serially dilated to 7 mm. A medium V-Care uterine manipulator with colpotomy ring was placed and secured. The speculum and tenaculum were removed. A 5 mm infraumbilical incision was made and laparoscopic entry was accomplished using the Optiview technique. Pneumoperitoneum was established to 15 mmHg. Initial laparoscopic survey demonstrated a normal-appearing uterus and adnexa. Both fallopian tubes were consistent with prior tubal ligation. Bilateral paratubal cysts were noted. The patient was placed in steep Trendelenburg position, and two lateral ports were placed bilaterally, 2 cm above and medial to the anterior superior iliac spines. Dissection was started on the right. Residual tubal segments were dissected, followed by division of the right round ligament. The anterior and posterior leaves of the broad ligament were developed, and the right uterine artery was skeletonized. The same procedure was completed on the left. The bladder flap was developed using a combination of sharp and blunt dissection. The uterine arteries were then sealed and divided bilaterally. Colpotomy was performed laparoscopically using the monopolar jaw of the Harmonic scalpel, with the V-Care colpotomy ring providing guidance. Dissection was carried circumferentially until the uterus was amputated and subsequently delivered vaginally. Attention was turned to the vaginal aspect. The vaginal cuff angles were grasped with Allis clamps, and the vaginal cuff was closed vaginally using 0 Vicryl in a running locked fashion. Hemostasis was confirmed. Laparoscopic instruments were reintroduced. Surgicel powder and Surgicel sheets were placed over the vaginal cuff and all relevant dissection sites for hemostatic assurance. The pelvis was copiously irrigated, and all fluid and debris were suctioned out. A diagnostic cystoscopy was then performed. The bladder mucosa was normal, and bilateral ureteric jets were observed, confirming ureteral integrity. Pneumoperitoneum was desufflated, and all laparoscopic instruments were removed. Skin incisions were closed with 4-0 Monocryl in a subcuticular fashion. The patient was taken out of lithotomy position, cleaned, and sterile dressings were applied. General anesthesia was reversed, and the patient was transferred to recovery in stable and awake condition. She tolerated the procedure well. All instrument, sponge, and sharp counts were correct ?2. Specimen: uterus, left tube and right tube Estimated blood loss (ml): 100 Specimen: uterus Estimated blood loss (ml): 100 Complications: none Surgical staff Operation Date: 01/11/25 10:15 <No data on this case meets the specified criteria> Diagnosis Discharge Diagnosis (1) Pelvic and perineal pain: Status: Acute (2) Other acute postprocedural pain: Status: Acute Problem List Completed Was Problem List Reviewed/Reconciled?: Yes
--- NOTE | 2025-01-11 12:17 | SUR.PHASEI ---
pt received from OR in recovery bay 6. pt asleep but responds to voice, breathing unlabored on nc 4l. v/s stable. pt dressing to abd dermabond x3 and peripad cdi. vu catheter in place. report received from Dorian Mireles and Dr. Marte.
[2025-01-11] MEDS: ONDANSETRON INJ 2 MG/ML INJ 2 ML 4 MG IVP (12:27)
[2025-01-11] MEDS: METOCLOPRAMIDE INJ 5 MG/ML VIAL 2 ML 7.5 MG IVP (12:51)
[2025-01-11] MEDS: SODIUM CHLORIDE 0.9% 1000 ML 1,000 ML 200 ML IV ×2 (12:52→20:16)
[2025-01-11] MEDS: HYDROmorphone INJ 2 MG/ML VIAL 0.5 MG IVP (13:04)
--- NOTE | 2025-01-11 13:40 | SUR.PHASEII ---
pt asleep but responds to voice, breathing unlabored on room air. v/s stable. pt dressing to abd dermabond x3 cdi. report called to Brea RENNER. pt will be transferred to room at this time.
[2025-01-11] MEDS: ONDANSETRON INJ 2 MG/ML INJ 2 ML 4 MG IV (14:16)
[2025-01-11] MEDS: KETOROLAC INJ 30 MG/ML VIAL IVP ×2 (14:16→21:30)
[2025-01-11] MEDS: PROMETHAZINE INJ 25 MG in SODIUM CHLORIDE 0.9% 50 ML IV (15:25)
[2025-01-11] MEDS: HYDROMORPHONE HCL 2 MG TABLET PO (15:27)
[2025-01-11] MEDS: ACETAMINOPHEN IVPB 1,000 MG/100 ML VIAL 250 MG IV ×2 (17:10→23:29)
[2025-01-11] MEDS: DOCUSATE SOD 100 MG CAPSULE PO (18:36)
[2025-01-11] MEDS: HYDROmorphone INJ 2 MG/ML VIAL IVP ×2 (18:43→21:59)
[2025-01-12] VITALS: BP 140/95; PULSE 78; RESP 16; TEMP 36.7; O2SAT 98
[2025-01-12] MEDS: HYDROmorphone INJ 2 MG/ML VIAL IVP ×3 (01:01→07:47)
[2025-01-12] MEDS: ONDANSETRON INJ 2 MG/ML INJ 2 ML 4 MG IV (01:10)
[2025-01-12] MEDS: SODIUM CHLORIDE 0.9% 1000 ML 1,000 ML 200 ML IV ×2 (01:10→07:48)
--- NOTE | 2025-01-12 03:15 | PC.NURSE ---
pt has several intermittent short laughs all by himself.
[2025-01-12 04:00] VITALS: BP 158/89; PULSE 78; RESP 15; TEMP 36.7; O2SAT 100
[2025-01-12] MEDS: ACETAMINOPHEN IVPB 1,000 MG/100 ML VIAL 250 MG IV ×2 (05:39→11:11)
[2025-01-12 05:42] LABS: Basophils # (Auto) 0.0 Thou/mm3 (0.0-0.2); Basophils % (Auto) 0 % (0-2.5); Eosinophils # (Auto) 0.0 Thou/mm3 (0.0-0.5); Eosinophils % (Auto) 0 % (0-10); Hematocrit 31.6 % (36.0-46.0); Hemoglobin 10.8 g/dL (12.0-16.0); Immature Granulocytes Auto 0.01 Thou/mm3 (0.00-0.00); Lymphocytes # (Auto) 0.9 Thou/mm3 (1.0-4.8); Lymphocytes % (Auto) 18 % (10-50); Mean Corpuscular HGB Conc 34.2 g/dl (31.0-37.0); Mean Corpuscular Hemoglobin 30.7 pg (25.0-35.0); Mean Corpuscular Volume 90 fL (80-100); Monocytes # (Auto) 0.4 Thou/mm3 (0.0-0.8); Monocytes % (Auto) 9 % (0-12); Neutrophils # (Auto) 3.4 Thou/mm3 (1.8-7.7); Neutrophils % (Auto) 72 % (37-80); Nucleated Red Blood Cell # 0.00 Thou/mm3 (0.00-0.00); Nucleated Red Blood Cell % 0 /100 WBC (0); Platelet Count 139 Thou/mm3 (140-440); RDW Standard Deviation 40.8 fL (36.4-46.3); Red Blood Count 3.52 Miln/mm3 (4.00-5.20); White Blood Count 4.7 Thou/mm3 (3.6-11.0)
[2025-01-12 06:10] LABS: Anion Gap 13 (7-16); BUN/Creatinine Ratio 16 Ratio (12-20); Blood Urea Nitrogen 8 mg/dL (9-23); Calcium 8.6 mg/dL (8.3-10.6); Carbon Dioxide 20.2 mMol/L (20.0-31.0); Chloride 105 mMol/L (98-107); Creatinine (Component) 0.5 mg/dL (0.6-1.3); Estimated Creatinine Clearance 126.4 mL/min (>60); Glucose 117 mg/dL (74-106); Osmolality,Calculated 274 (275-295); Potassium 3.7 mMol/L (3.4-5.1); Sodium 138 mMol/L (136-145); eGFR > 60 See Note
[2025-01-12] MEDS: DOCUSATE SOD 100 MG CAPSULE PO (07:47)
[2025-01-12 08:00] VITALS: BP 132/77; PULSE 60; RESP 14; TEMP 36.7; O2SAT 100
--- NOTE | 2025-01-12 08:33 | ESPR_ITS ---
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: Obj Data Labs 01/12/25 04:49 01/12/25 04:49 Labs: Laboratory Results - last 24 hr 01/12/25 04:49 WBC 4.7 RBC 3.52 L Hgb 10.8 L Hct 31.6 L MCV 90 MCH 30.7 MCHC 34.2 RDW Std Deviation 40.8 Plt Count 139 L D Neut % (Auto) 72 Lymph % (Auto) 18 [place] % (Auto) 9 Eos % (Auto) 0 Baso % (Auto) 0 Neut # (Auto) 3.4 Lymph # (Auto) 0.9 L [place] # (Auto) 0.4 Eos # (Auto) 0.0 Baso # (Auto) 0.0 Immature Gran # (Auto) 0.01 H Absolute Nucleated RBC 0.00 Immature Gran % 0 Nucleated RBC % 0 Sodium 138 Potassium 3.7 Chloride 105 Carbon Dioxide 20.2 Anion Gap 13 BUN 8 L Creatinine 0.5 L Estim Creat Clear Calc 126.4 eGFR > 60 BUN/Creatinine Ratio 16 Glucose 117 H Calculated Osmolality 274 L Calcium 8.6 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
--- NOTE | 2025-01-12 10:07 | PC.SS ---
Patient Monserrat Simpson is a 29 Year old female admitted for Total LAP. SS met with patient at bedside to discuss discharge plan. Patient reports she lives at home with Her boyfriend, Dhruv Sarah who she reports is her surrogate decision maker, [phone]. Patient is able to complete all ADL's independently and reports she does not utilize any source of DME to Assist with ambulation. Choice of pharmacy is [facility]. PCP is Alvin Camilo. At time of discharge patient will return back home. Patient's life partner will provide tranportation. Discharge Plan: Home Next of kin: Life partner, Dhruv Sarah
[2025-01-12] MEDS: KETOROLAC INJ 30 MG/ML VIAL IVP (11:15)
[2025-01-12 12:00] VITALS: BP 138/97; PULSE 65; RESP 18; TEMP 36.2; O2SAT 100
--- NOTE | 2025-01-13 08:18 | CHAP ---
Patient was visited by a Spiritual Care Volunteer on 01/12/2025 between 0900 and 1200 and received comfort, encouragement and/or prayer.
== END 2025-01-12 12:40 | disposition home or self-care (01) ==
LOC: S3SX 13:47
PROVIDERS: Admitting Provider Obstetrics & Gynecology; PCP Family Medicine; Referring Provider Obstetrics & Gynecology; Visit Provider Obstetrics & Gynecology
PROC: 0UT94ZZ Resection of Uterus, Percutaneous Endoscopic Approach (ICD-10-PCS; CPT 58571; principal; 2025-01-11 10:00)
DX: N80.9 Endometriosis, unspecified (principal); N83.8 Other noninflammatory disorders of ovary, fallopian tube and broad ligament; G89.18 Other acute postprocedural pain; R10.2 Pelvic and perineal pain; G89.29 Other chronic pain
CPT/HCPCS: 58571; 36415; 80048; 80053; 84703; 85025; 86850; 86900; 86901; 96361; 96365; 96375; 96376; A4217; A4649; G0378; J0131; J0690; J1100; J1171; J1885; J2405; J2550; J2704; J2765; J3010; J3490; J7030; A9270; J1596

== ENCOUNTER 2025-01-23 07:41 | Inpatient (IN) | payer MEDICAID, SELFPAY ==
[2025-01-23 07:42] VITALS: BMI 19.1
[2025-01-23 07:54] VITALS: BP 132/85; PULSE 104; RESP 16; TEMP 37.6; O2SAT 97
[2025-01-23 08:08] LABS: Collection Type, Urine Clean Catch
--- NOTE | 2025-01-23 08:10 | XR_ITS ---
Examination: Pelvic ultrasound, transabdominal, complete Technique: Transabdominal ultrasound of the pelvis performed using grayscale imaging Date and time of exam: January 23, 2025, 0908 hrs. Indications: Pelvic pain post hysterectomy 3 days ago. Findings: Absent uterus Right ovary 3.6 cm arterial flow small follicles Left ovary 5.0 cm arterial flow cyst with internal echoes 3.8 x 2.6 cm Impression: Probable hemorrhagic cyst left ovary, 3.8 x 2.6 cm. Please see the CT report indicating peritonitis pattern in the pelvis Repeating CT pelvis study with intravenous contrast would be extremely helpful
--- NOTE | 2025-01-23 08:10 | XR_ITS ---
Examination: CT abdomen and pelvis without contrast. Coronal 3-D reconstructions. Sagittal 2-D reconstructions. Date and time of exam:January 23, 2025, 0854 hrs. Indications: Status post hysterectomy with fever abdominal pain beginning 3 days ago. CTDI: vol (mGy): 5.26 DLP: (mGycm): 257 Technique: Axial images of the abdomen have been obtained, 3 mm slice thickness Intravenous contrast material has not been administered. Low dose protocols were performed. One or more of the following dose reduction techniques were used; automated exposure control, adjustment of the mA and/or KV according to patient size, use of iterative reconstruction technique. Findings: Fatty infiltration throughout the liver. No gallstones. Spleen is not enlarged. No hydronephrosis. Aorta normal size. No definite bowel obstruction. No pericecal inflammatory change. There is extensive inflammatory change in the pelvis with free fluid, consider peritonitis Urinary bladder is contracted with wall thickening The osseous structures are intact Impression: Extensive inflammatory change in the pelvis with free fluid, consider peritonitis No krista pelvic abscess Recommend pelvic sonography follow-up
--- NOTE | 2025-01-23 08:11 | PC.NURSE ---
Pt. to room 8 from home, pt. states she had a laparoscopic hysterectomy on the by Dr. Vega, pt. states she has had fever X 3 days, pt. states the fever and abdominal pain brought her in today. Pt. states she can't hardly stand up. Pt. states she is a . Pt. states she had a ectopic in the past and her right tube was removed. Pt. states Dr. Vega did leave one ovary but she's not sure which one, pt. states she was going to find out on her follow up appointment. Pt. states she has pain when urinating and having a BM. Call light given.
--- NOTE | 2025-01-23 08:20 | EKG_ITS ---
[facility] Test Date: 2025-01-23 Pat Name: DEVORA LAZAR Department: Room: - Gender: Female Steel Chipper: : 1995 Requested By: Davion Up Order Number: [id number] Reading MD: Davion Up Measurements Intervals Terral Rate: 85 P: -11 [place]: 118 QRS: 38 QRSD: 72 T: 36 QT: 325 QTc: 388 Interpretive Statements SINUS RHYTHM WITH SHORT [place] INTERVAL No previous ECG available for comparison /store/S0/[id number]/[id number].pdf
--- NOTE | 2025-01-23 08:20 | PC.NURSE ---
US called to hydrate pt., water given, pt. states she will drink.
--- NOTE | 2025-01-23 08:22 | PC.NURSE ---
Pt. has 3 small incisions, one on the right and the left of the lower outer abdomen and at pt.'s belly button. All incisions are healed, no bleeding or drainage noted.
[2025-01-23 08:34] LABS: Bilirubin,Urine Negative (Negative); Blood,Urine 1+ (Negative); Clarity,Urine Clear (Clear/Hazy); Color,Urine Yellow (Lt Yel-Yel); Culture Indicated,Urine Not Indicated; Glucose, Urine Negative (Negative); Ketones,Urine Negative (Negative); Leukocyte Esterase,Urine Negative (Negative); Nitrite,Urine Negative (Negative); PH,Urine 5.5 (5.0-7.0); Protein,Urine Trace (Neg - Trace); RBC,Urine 2 /hpf (0-3); Specific Gravity,Urine 1.025 (1.001-1.035); Squamous Epithelial Cell,Urine 3 /hpf (0-5); Urobilinogen,Urine Negative mg/dL (0.0-1.0); WBC,Urine 3 /hpf (0-5)
--- NOTE | 2025-01-23 08:48 | PD.EDABDPN ---
ED Abdominal Pain RME/HPI General Chief Complaint: Abdominal Pain Stated complaint: S/P HYSTERECTOMY, FEVER Time seen by provider: 01/23/25 07:43 Arrival date/time: 01/23/25 07:41 Limitations: no limitations RME / HPI RME / HPI narrative: 29 year old female with history of uterine prolapse and severe endometriosis/adenomyosis s/p total laparoscopic hysterectomy bilateral partial salpingectomy performed by Dr. Vega on 01/11/2025 presents to the ED for evaluation of abdominal pain and fever. Reports the abdominal pain is present since the surgery. However, worsening in the last 2 days. Pain described as aching in sensation that is located diffusely though most severe to the mid abdomen R>L. Accompanied by fevers beginning yesterday, Tmax 103F. Reports taking Tylenol since onset without relief. Denies nausea, vomiting, diarrhea, or urinary symptoms. Related Data Home Medications ?Medication ?Instructions ?Recorded ?Confirmed hydrocodone 5 mg-acetaminophen 325 1 tab PO Q6H PRN pain 01/08/25 01/08/25 mg tablet Held on 01/12/25. Instructions: Resume on 01/19/25. Prescribed PO Dilaudid post surgery tramadol 50 mg tablet 50 mg PO Q8H PRN pain 01/08/25 01/08/25 Held on 01/12/25. Instructions: Resume on 01/19/25. Prescribed PO Dilaudid post surgery Allergies Allergy/AdvReac Type Severity Reaction Status Date / Time codeine Allergy Rash Verified 01/11/25 07:46 Review of Systems Review of Systems Systems Reviewed: All systems reviewed, normal except as documented Past Medical History Past Medical History RESPIRATORY: Positive Asthma GASTROINTESTINAL: Positive Gastrointestinal Disorders REPRODUCTIVE: Positive Endometriosis and Previous Pregnancies HEMATOLOGIC: Positive Anemia PSYCHO/SOCIAL: Positive Recreational Drug Use (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), Depression and Anxiety OTHER HISTORY: Positive Hospitalization Family History FAMILY HISTORY: Positive Family Cardiac Disorders and Family Surgery Surgical History SURGICAL: Positive Abdominal Surgery and Tubal Ligation; Negative Section Social History SMOKING STATUS: Never smoker SECOND HAND EXPOSURE: Yes SUBSTANCE USE: marijuana (Occasional) ED Exam General Limitations: Present no limitations General appearance: Present alert and in no apparent distress Head Head exam: Present atraumatic, normocephalic and normal inspection Eye Eye exam: Present normal appearance, PERRL and EOMI ENT ENT exam: Present normal exam, normal oropharynx and mucous membranes moist Neck Neck exam: Present normal inspection, full ROM and trachea midline Chest Chest inspection: Present normal inspection and symmetric chest wall rise Respiratory Respiratory exam: Present normal lung sounds bilaterally Cardiovascular Cardiovascular exam: Present regular rate, normal rhythm and normal heart sounds Abdominal Exam Abdominal exam: Present soft, tenderness (2-3+ tenderness in the right mid abdomen with percussion tenderness, mild rebound. ) and normal bowel sounds Extremities Exam Extremities exam: Present normal inspection and full ROM Back Exam Back exam: Present normal inspection and full ROM Neurological Exam Neurological exam: Present alert, oriented X3 and CN II-XII intact Psychiatric Psychiatric exam: Present normal affect and normal mood Skin Skin exam: Present warm, dry, intact and normal color Course Quality Measures Current suspected stage: sepsis Possible source: GI tract/intra-abdominal Blood cultures ordered: completed in ED Antibiotic ordered: Yes Pertinent labs: 01/23/25 09:35 Procalcitonin 0.08 ng/ml (0.0-0.49) sepsis Orders Category Date Time Status Admit to Inpatient Status Routine Admission 01/23/25 12:12 Active Patient Condition Routine Admission 01/23/25 12:12 Ordered Activity as Tolerated Routine Care 01/23/25 12:13 Ordered Apply JOVANNY Hose NOW Care 01/23/25 12:16 Active Blood Cultures (Nursing) X2 PRN PRN Care 01/23/25 12:12 Active COVID-19 Screening Questionnaire NOW Care 01/23/25 12:07 Active Adjunct Professor Of Voice STAT Care 01/23/25 08:10 Active Adjunct Professor Of Voice STAT Care 01/23/25 08:20 Active Continuous Pulse Oximetry STAT Care 01/23/25 08:10 Completed Continuous Pulse Oximetry STAT Care 01/23/25 08:20 Active Decision to Admit X1 Care 01/23/25 12:07 Active EKG (ED ONLY) *Do not use* NOW Care 01/23/25 08:20 Completed Insert IV NOW Care 01/23/25 08:20 Active Insert IV STAT Care 01/23/25 08:10 Active Intake and Output QSHIFT Care 01/23/25 12:15 Ordered NPO STAT Care 01/23/25 08:10 Active NPO STAT Care 01/23/25 08:20 Active Notify provider NEEDED Care 01/23/25 12:12 Active Sequential Compression Device QSHIFT Care 01/23/25 12:11 Active Strict Intake and Output Routine Care 01/23/25 08:[address] abdomen pelvis wo con Stat Exams 01/23/25 08:10 Completed EKG (ED Only) Stat Exams 01/23/25 08:20 Draft US pelvic complete Stat Exams 01/23/25 08:10 Completed Blood Culture (Lab) Stat Lab 01/23/25 09:30 Received CBC Routine Lab 01/24/25 12:12 Ordered CBC Stat Lab 01/23/25 09:35 Completed Comprehensive Metabolic Panel Routine Lab 01/24/25 12:12 Ordered Comprehensive Metabolic Panel Stat Lab 01/23/25 09:35 Completed Lipase Stat Lab 01/23/25 09:35 Completed Magnesium Stat Lab 01/23/25 09:35 Completed Partial Thromboplastin Time Stat Lab 01/23/25 09:35 Completed Phosphorous Stat Lab 01/23/25 09:35 Completed Procalcitonin Stat Lab 01/23/25 09:35 Completed Prothrombin Time with INR Stat Lab 01/23/25 09:35 Completed Urinalysis Stat Lab 01/23/25 08:10 Ordered Urinalysis, C/S if Indicated Stat Lab 01/23/25 07:52 Completed Urinalysis, C/S if Indicated Stat Lab 01/23/25 08:10 Ordered Acetaminophen Supp [Tylenol Supp] Med 01/23/25 08:20 Active 650 mg WA Q8HR PRN Acetaminophen Tab [Tylenol Tab] Med 01/23/25 12:11 Active 650 mg PO Q6H PRN HYDROcodone*/APAP 5/325 [Bailey 5/325] Med 01/23/25 12:11 Active 1 tab PO Q4H PRN HYDROcodone/APAP 10/325 [Bailey 10/325] Med 01/23/25 12:11 Active 1 tab PO Q4H PRN Ketorolac Inj [Toradol Inj] Med 01/23/25 08:19 Discontinued 15 mg IVP X1 ONE Morphine Inj Med 01/23/25 08:10 Discontinued 4 mg IVP X1 ONE Morphine Inj Med 01/23/25 11:48 Discontinued 4 mg IVP X1 ONE Ondansetron Inj [Zofran Inj] Med 01/23/25 12:11 Active 4 mg IVP Q6H PRN Ondansetron Inj [Zofran Inj] Med 01/23/25 08:20 Discontinued 4 mg IVP Q6HR PRN Ondansetron Inj [Zofran Inj] Med 01/23/25 08:10 Discontinued 4 mg IVP X1 ONE Ondansetron Inj [Zofran Inj] Med 01/23/25 11:48 Discontinued 4 mg IVP X1 ONE Piper/Tazo Inj [Zosyn Inj] 4.5 gm Med 01/23/25 22:00 Active Sodium Chloride 0.9% (Pop) [NS 0.9% mini bag] 100 ml IV Q8HR Piper/Tazo Inj [Zosyn Inj] 4.5 gm Med 01/23/25 11:56 Active Sodium Chloride 0.9% (Pop) [NS 0.9% mini bag] 100 ml IV X1 Sodium Chloride 0.9% 1000 ml [Ns] 1,000 ml Med 01/23/25 08:10 Discontinued IV 999 mls/hr Sodium Chloride 0.9% 1000 ml [Ns] 1,000 ml Med 01/23/25 08:10 Discontinued IV 999 mls/hr Code Status Routine Oth 01/23/25 12:11 Ordered Vital Signs Vital signs: Vital Signs Temperature 99.6 F 01/23/25 07:54 Pulse Rate 104 H 01/23/25 07:54 Respiratory Rate 16 01/23/25 07:54 Blood Pressure 132/85 H 01/23/25 07:54 Pulse Oximetry (%) 97 01/23/25 07:54 Oxygen Delivery Method Room Air 01/23/25 07:54 Pulse ox is 97% on room air which is adequate. Abdominal Pain MDM MDM Narrative MDM Narrative:: INikia, am scribing for and in the presence of Dr. Malhotra. I spoke with OBGYN Dr. Berumen. Discussed patients PMHx, HPI, ED course, exam findings, labs, and radiology results. He accepts the patient for admission. Patient data External records reviewed:: [facility] previous records (I reviewed operative report on 01/11/2025 ) Clinical information provided by:: patient Social determinants that could affect healthcare access:: none Patient has the following chronic illnesses:: uterine prolapse and severe endometriosis/adenomyosis s/p total laparoscopic hysterectomy bilateral partial salpingectomy performed by Dr. Vega on 01/11/2025 How is presenting disease/condition affected by chronic disease/condition?: exacerbated by Evaluation data The following diagnostics were reviewed and interpreted by me:: lab results, radiology exam(s) and EKG tracing(s) (01/23/2025 @ 08:37 AM. Sinus rhythm, rate 85, no acute ischemic changes ) Lab and/or radiology exams considered but not ordered:: None Interpretation Summary: Ordering Physician: Davion Malhotra MD Date of Service: 01/23/25 Procedure(s): CT abdomen pelvis wo con Accession Number(s): [id number] cc: Davion Malhotra MD; Thai Ignacio MD; Nat Cristobal NP~ Examination: CT abdomen and pelvis without contrast. Coronal 3-D reconstructions. Sagittal 2-D reconstructions. Date and time of exam:January 23, 2025, 0854 hrs. Indications: Status post hysterectomy with fever abdominal pain beginning 3 days ago. CTDI: vol (mGy): 5.26 DLP: (mGycm): 257 Technique: Axial images of the abdomen have been obtained, 3 mm slice thickness Intravenous contrast material has not been administered. Low dose protocols were performed. One or more of the following dose reduction techniques were used; automated exposure control, adjustment of the mA and/or KV according to patient size, use of iterative reconstruction technique. Findings: Fatty infiltration throughout the liver. No gallstones. Spleen is not enlarged. No hydronephrosis. Aorta normal size. No definite bowel obstruction. No pericecal inflammatory change. There is extensive inflammatory change in the pelvis with free fluid, consider peritonitis Urinary bladder is contracted with wall thickening The osseous structures are intact Impression: Extensive inflammatory change in the pelvis with free fluid, consider peritonitis No krista pelvic abscess Recommend pelvic sonography follow-up Dictated By: Thai Ignacio MD Signed By: <Electronically signed by Thai Ignacio MD in OV> 01/23/25 1007 Ordering Physician: Davion Malhotra MD Date of Service: 01/23/25 Procedure(s): US pelvic complete Accession Number(s): [id number] cc: Davion Malhotra MD; Thai Ignacio MD; Nat Cristobal NP~ Examination: Pelvic ultrasound, transabdominal, complete Technique: Transabdominal ultrasound of the pelvis performed using grayscale imaging Date and time of exam: January 23, 2025, 0908 hrs. Indications: Pelvic pain post hysterectomy 3 days ago. Findings: Absent uterus Right ovary 3.6 cm arterial flow small follicles Left ovary 5.0 cm arterial flow cyst with internal echoes 3.8 x 2.6 cm Impression: Probable hemorrhagic cyst left ovary, 3.8 x 2.[address] see the [address] report indicating peritonitis pattern in the pelvis Repeating CT pelvis study with intravenous contrast would be extremely helpful Dictated By: Thai Ignacio MD Signed By: <Electronically signed by Thai Ignacio MD in OV> 01/23/25 1010 Medications / Prescriptions Medications or Prescriptions considered but not ordered:: None Medication administrations:: Medication Administration History Acetaminophen (Acetaminophen Supp 650 Mg Supp) 650 mg WA Q8HR PRN PRN Reason: Fever > 100.4 Stop: 02/22/25 08:19 Acetaminophen (Acetaminophen 325 Mg Tablet) 650 mg PO Q6H PRN PRN Reason: Fever >101.5 Stop: 02/22/25 12:10 Hydrocodone Bitart/Acetaminophen (Hydrocodone/Apap 5/325 Tablet) 1 tab PO Q4H PRN PRN Reason: PAIN SCALE 4-6 (Moderate Stop: 01/28/25 12:10 Hydrocodone Bitart/Acetaminophen (Hydrocodone/Apap 10/325 Tab) 1 tab PO Q4H PRN PRN Reason: PAIN SCALE 7-10 (Severe Stop: 01/28/25 12:10 Piperacillin Sod/Tazobactam (Sod 4.5 gm/ Sodium Chloride) 100 mls @ 200 mls/hr IV X1 ONE Stop: 01/23/25 12:25 Last Admin: 01/23/25 12:14 Dose: 200 mls/hr Documented By: ED Piperacillin Sod/Tazobactam (Sod 4.5 gm/ Sodium Chloride) 100 mls @ 25 mls/hr IV Q8HR FAY Stop: 01/30/25 21:59 Ondansetron HCl (Ondansetron Inj 2 Mg/Ml Inj 2 Ml) 4 mg IVP Q6H PRN PRN Reason: NAUSEA OR VOMITING Stop: 02/22/25 12:10 Discontinued Medications Sodium Chloride (Ns) 1,000 mls @ 999 mls/hr IV .Q1H1M ONE Stop: 01/23/25 09:10 Last Infusion: 01/23/25 11:28 Dose: Infused Documented By: Admin: 01/23/25 09:01 Dose: 999 mls/hr Documented By: ED Sodium Chloride (Ns) 1,000 mls @ 999 mls/hr IV .Q1H1M ONE Stop: 01/23/25 09:10 Last Infusion: 01/23/25 11:29 Dose: Infused Documented By: Admin: 01/23/25 09:03 Dose: 999 mls/hr Documented By: ED Ketorolac Tromethamine (Ketorolac Inj 30 Mg/Ml Vial) 15 mg IVP X1 ONE Stop: 01/23/25 08:20 Last Admin: 01/23/25 08:57 Dose: 15 mg Documented By: ED Morphine Sulfate (Morphine Sulf Inj 10 Mg/Ml Vial) 4 mg IVP X1 ONE Stop: 01/23/25 10:10 Last Admin: 01/23/25 08:59 Dose: 4 mg Documented By: ED Morphine Sulfate (Morphine Sulf Inj 10 Mg/Ml Vial) 4 mg IVP X1 ONE Stop: 01/23/25 11:49 Last Admin: 01/23/25 12:11 Dose: 4 mg Documented By: ED Ondansetron HCl (Ondansetron Inj 2 Mg/Ml Inj 2 Ml) 4 mg IVP X1 ONE Stop: 01/23/25 08:11 Last Admin: 01/23/25 08:54 Dose: 4 mg Documented By: ED Ondansetron HCl (Ondansetron Inj 2 Mg/Ml Inj 2 Ml) 4 mg IVP Q6HR PRN PRN Reason: NAUSEA OR VOMITING Stop: 02/22/25 08:19 Ondansetron HCl (Ondansetron Inj 2 Mg/Ml Inj 2 Ml) 4 mg IVP X1 ONE; Protocol Stop: 01/23/25 11:49 Last Admin: 01/23/25 12:10 Dose: 4 mg Documented By: ED See above Consultations Consultation(s) initiated? (list below): Yes Consultation #1 (Physician, Specialty, Details): See MDM Diagnosis Differential diagnosis abdominal pain: abdominal pain and other (post operative complication, post operative pain) Most likely diagnosis given after review of the tests above:: Peritonitis Post operative infection Fever Admission Indicated Admission indicated?: not indicated Admission Request Was there a request for admission?: Yes Admission Attestation Admission request attestation: Discussed case with [] from Hospitalist service regarding admission. Discussed patients ED course, exam findings, labs, and radiology results. The Hospitalist [agrees,declines] to accept the patient for admission. Disposition Plan Disposition Plan: Admit Critical Care Time Critical Care Time Critical Care Time: No Discharge Plan Plan Patient Disposition: Admit Acute Care w/in Hospital Prescriptions/Referrals Prescriptions/Med Rec: No Action hydrocodone-acetaminophen 5-325 mg tablet 1 tab PO Q6H PRN (Reason: pain) Patient Comments: TAKE 1 TABLET BY MOUTH EVERY 6 HOURS NEEDED FOR PAIN tramadol 50 mg tablet 50 mg PO Q8H PRN (Reason: pain) Patient Comments: TAKE 1 TABLET BY MOUTH 3 TIMES DAILY NEEDED FOR ABDOMINAL/PELVIC PAIN Referrals: Nat Cristobal NURSING HOME SOCIAL WORKER [Primary Care Provider] - In 1 week Problem List Clinical Impression: Peritonitis, Fever, Post-operative infection Patient/Caregiver Discharge Instructions Print Language: Bulgarian Stand Alone Forms: Dianna Award Info., Patient Portal Info Letter
[2025-01-23 08:50] VITALS: PULSE 87
[2025-01-23] MEDS: ONDANSETRON INJ 2 MG/ML INJ 2 ML 4 MG IVP ×2 (08:54→12:10)
[2025-01-23] MEDS: KETOROLAC INJ 30 MG/ML VIAL 15 MG IVP (08:57)
[2025-01-23] MEDS: MORPHINE SULF INJ 10 MG/ML VIAL 4 MG IVP ×2 (08:59→12:11)
[2025-01-23] MEDS: SODIUM CHLORIDE 0.9% 1000 ML 1,000 ML 999 ML IV ×2 (09:01→09:03)
[2025-01-23 09:44] LABS: Basophils # (Auto) 0.0 Thou/mm3 (0.0-0.2); Basophils % (Auto) 0 % (0-2.5); Eosinophils # (Auto) 0.0 Thou/mm3 (0.0-0.5); Eosinophils % (Auto) 0 % (0-10); Hematocrit 29.9 % (36.0-46.0); Hemoglobin 9.8 g/dL (12.0-16.0); Immature Granulocytes Auto 0.05 Thou/mm3 (0.00-0.00); Lymphocytes # (Auto) 1.0 Thou/mm3 (1.0-4.8); Lymphocytes % (Auto) 7 % (10-50); Mean Corpuscular HGB Conc 32.8 g/dl (31.0-37.0); Mean Corpuscular Hemoglobin 29.8 pg (25.0-35.0); Mean Corpuscular Volume 91 fL (80-100); Monocytes # (Auto) 1.0 Thou/mm3 (0.0-0.8); Monocytes % (Auto) 7 % (0-12); Neutrophils # (Auto) 12.2 Thou/mm3 (1.8-7.7); Neutrophils % (Auto) 86 % (37-80); Nucleated Red Blood Cell # 0.00 Thou/mm3 (0.00-0.00); Nucleated Red Blood Cell % 0 /100 WBC (0); Platelet Count 320 Thou/mm3 (140-440); RDW Standard Deviation 40.9 fL (36.4-46.3); Red Blood Count 3.29 Miln/mm3 (4.00-5.20); White Blood Count 14.3 Thou/mm3 (3.6-11.0)
[2025-01-23 09:59] LABS: INR 1.1 (0.9-1.3); Partial Thromboplastin Time 30.8 Seconds (22.0-36.0); Prothrombin Time 11.9 Seconds (9.0-12.2)
[2025-01-23 10:07] VITALS: BP 132/85; PULSE 90; RESP 18; TEMP 37.6; O2SAT 98
[2025-01-23 10:14] LABS: Albumin, Serum 3.6 gm/dL (3.5-5.0); Albumin/Globulin Ratio 1.6 (1.2-2.2); Alkaline Phosphatase 53 U/L (46-116); Anion Gap 10 (7-16); Aspartate Amino Transferase < 8 U/L (0-34); BUN/Creatinine Ratio 13 Ratio (12-20); Bilirubin,Total 0.3 mg/dL (0.3-1.2); Blood Urea Nitrogen < 5 mg/dL (9-23); Calcium 9.1 mg/dL (8.3-10.6); Calcium (Corrected) 9.4 mg/dL (8.5-10.1); Carbon Dioxide 24.4 mMol/L (20.0-31.0); Chloride 106 mMol/L (98-107); Creatinine (Component) 0.4 mg/dL (0.6-1.3); Estimated Creatinine Clearance 174.0 mL/min (>60); Globulin 2.2 gm/dL (2.3-3.5); Glucose 114 mg/dL (74-106); Lipase 22 U/L (12-53); Magnesium 1.5 mg/dL (1.6-2.6); Osmolality,Calculated 277 (275-295); Phosphorous 3.5 mg/dL (2.4-5.1); Potassium 4.9 mMol/L (3.4-5.1); Sodium 140 mMol/L (136-145); Total Protein 5.8 gm/dL (5.7-8.2); eGFR > 60 See Note
[2025-01-23 10:35] LABS: Procalcitonin 0.08 ng/ml (0.0-0.49)
[2025-01-23 10:43] LABS: Alanine Aminotransferase < 7 U/L (10-49)
--- NOTE | 2025-01-23 11:50 | PC.NURSE ---
Informed Dr. Malhotra that pt. is in pain 11/03.
[2025-01-23] MEDS: PIPER/TAZO INJ 4.5 GM in SODIUM CHLORIDE 0.9% (POP) 100 ML IV ×2 (12:14→21:37)
--- NOTE | 2025-01-23 12:28 | PC.NURSE ---
called Dr. Berumen [phone], he states that pt. can eat, regular diet and confirmed pt. is in bed 8 in the ER.
--- NOTE | 2025-01-23 12:29 | PC.NURSE ---
gave pt. sandwich, juice, water and chips, pt. states thank you!
[2025-01-23 12:41] VITALS: BP 140/98; PULSE 97; RESP 19; TEMP 37.4; O2SAT 97
--- NOTE | 2025-01-23 12:51 | ESHP_ITS ---
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 Her surgery on 01/11 was uncomplicated under general anesthesia with 100 cc of blood loss. Her postoperative course was also unremarkable. Her pathology was benign. She was doing well in her recovery at home until 2 days ago. Over the past 2 days her postoperative pelvic pain has worsened described as aching in sensation that is located diffusely but most severe to the mid- pelvis. Fevers began yesterday, Tmax 103F. T now 99.7. Denies nausea, vomiting, diarrhea, constipation, flank pain or urinary symptoms. Had a normal bowel movement this morning. Has a good appetite. Rates pain 6 out of 10. Review of Systems Review of Systems Narrative Review of Systems: Denies any chest pain palpitations cough shortness of breath or lower extremity pain or swelling Past Medical History Past Medical History RESPIRATORY: Positive Asthma GASTROINTESTINAL: Positive Gastroesophageal Reflux Disease REPRODUCTIVE: Positive Endometriosis PSYCHO/SOCIAL: Positive Recreational Drug Use (Marijuana), Depression and Anxiety OTHER HISTORY: Positive Hospitalization (Ectopic with Laparotomy and salpingectomy) Family History OTHER FAMILY HX: Heart Disease and HTN Surgical History SURGICAL: Positive Abdominal Surgery (ectopic ), Hysterectomy and Tubal Ligation Meds Home Medications and Allergies Home Medications ?Medication ?Instructions ?Recorded ?Confirmed ?Type hydrocodone 5 mg-acetaminophen 325 1 tab PO Q6H PRN pa in 01/08/25 01/08/25 History mg tablet Held on 01/12/25. Instructions: Resume on 01/19/25. Prescribed PO Dilaudid post surgery tramadol 50 mg tablet 50 mg PO Q8H PRN pain 01/08/25 History Held on 01/12/25. Instructions: Resume on 01/19/25. 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 Nondistended. No guarding. Mild rebound. 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 - Results Labs 01/23/25 09:35 01/23/25 09:35 Labs: Short CBC 01/23/25 Range/Units 09:35 WBC 14.3 H (3.6-11.0) Thou/mm3 Hgb 9.8 L (12.0-16.0) g/dL Hct 29.9 L (36.0-46.0) % Plt Count 320 D (140-440) Thou/mm3 BMP 01/23/25 09:35 Sodium 140 Potassium 4.9 Chloride 106 Carbon Dioxide 24.4 BUN < 5 L Creatinine 0.4 L Glucose 114 H Calcium 9.1 Liver Function 01/23/25 Range/Units 09:35 Total Bilirubin 0.3 (0.3-1.2) mg/dL AST < 8 (0-34) U/L ALT < 7 L (10-49) U/L Alkaline Phosphatase 53 (46-116) U/L Albumin 3.6 (3.5-5.0) gm/dL Urine 01/23/25 Range/Units 07:52 Urine Color Yellow (Lt Yel-Yel) Urine Clarity Clear (Clear/Hazy) Urine pH 5.5 (5.0-7.0) Ur Specific [place] 1.025 (1.001-1.035) Urine Protein Trace (Neg - Trace) Urine Glucose (UA) Negative (Negative) Imaging and Cardiology CT scan - abdomen: Additional comments: CT scan shows extensive inflammatory change in the pelvis with free fluid without abscess. No hydronephrosis. No bowel obstruction. No appendicitis. Bladder intact. Pelvic ultrasound shows left hemorrhagic ovarian cyst 3.8 x 2.6 cm Assessment and Plan Assessment and plan (1) Peritonitis: Status: Acute Assessment and plan: Admit for IV antibiotics for 48 to 72 hours. Zosyn 4.5 g IV every 6 hours Repeat CBC in the morning Follow blood and urine culture results Left ovarian cyst is incidental and should resolve spontaneously. Has codeine reaction but can take hydrocodone without issues. VTE prophylaxis Quality Measures Quality Measures sepsis Current suspected stage: sepsis Possible source: GI tract/intra-abdominal Blood cultures ordered: completed in ED Antibiotic ordered: Yes
[2025-01-23] MEDS: HYDROcodone/APAP 5/325 TABLET 1 TAB PO ×2 (15:25→22:50)
[2025-01-23 15:37] VITALS: BMI 19.3
[2025-01-23 16:10] VITALS: BP 119/80; PULSE 93; RESP 16; TEMP 36.7; O2SAT 96
[2025-01-23 20:00] VITALS: BP 116/88; PULSE 98; RESP 16; TEMP 36.9; O2SAT 100
--- NOTE | 2025-01-23 20:12 | PC.NURSE ---
Pt complains of pain, MD Berumen made aware, new order for Toradol for breaktrough pain ordered as needed.
[2025-01-23] MEDS: KETOROLAC INJ 30 MG/ML VIAL IVP (20:25)
[2025-01-24] VITALS: BP 112/67; PULSE 83; RESP 17; TEMP 36.8; O2SAT 100
[2025-01-24] MEDS: KETOROLAC INJ 30 MG/ML VIAL IVP ×4 (03:29→16:36)
[2025-01-24 04:00] VITALS: BP 116/76; PULSE 89; RESP 16; TEMP 36.1; O2SAT 100
[2025-01-24] MEDS: HYDROcodone/APAP 5/325 TABLET 1 TAB PO ×3 (05:04→19:12)
[2025-01-24] MEDS: PIPER/TAZO INJ 4.5 GM in SODIUM CHLORIDE 0.9% (POP) 100 ML IV ×3 (05:04→21:08)
--- NOTE | 2025-01-24 07:52 | ESPR_ITS ---
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 Patient states that her pain has worsened and that she had vomiting of her breakfast this morning. She has been taking hydrocodone and Toradol for breakthrough pain. Denies any chest pain palpitation shortness of breath or lower extremity pain or swelling. Exam Vital Signs Temp Pulse Resp BP Pulse Ox O2 Del Method 97.0 F 89 16 116/76 100 Room Air 01/24/25 04:00 01/24/25 04:00 01/24/25 04:00 01/24/25 04:00 01/24/25 04:00 01/24/25 04:00 Routine Respiratory Exam Comments: Clear to auscultation bilateral Routine Cardiovascular Exam Comments: Regular rate and rhythm Routine Abdominal Exam Comments: Nondistended, soft, guarding and rebound, tenderness in the mid epigastric area Routine Extremities Exam Comments: Nontender Routine Skin Exam Comments: No gross rashes or lesions Urinary Catheter Management Cath placed during this visit: no [employer] OFFICE INSTALLER - PN: Obj Data Labs 01/23/25 09:35 01/23/25 09:35 Labs: Laboratory Results - last 24 hr 01/23/25 01/23/25 07:52 09:35 WBC 14.3 H RBC 3.29 L Hgb 9.8 L Hct 29.9 L MCV 91 MCH 29.8 MCHC 32.8 RDW Std Deviation 40.9 Plt Count 320 D Neut % (Auto) 86 H Lymph % (Auto) 7 L [place] % (Auto) 7 Eos % (Auto) 0 Baso % (Auto) 0 Neut # (Auto) 12.2 H Lymph # (Auto) 1.0 [place] # (Auto) 1.0 H Eos # (Auto) 0.0 Baso # (Auto) 0.0 Immature Gran # (Auto) 0.05 H Absolute Nucleated RBC 0.00 Immature Gran % 0 Nucleated RBC % 0 PT 11.9 INR 1.1 APTT 30.8 Sodium 140 Potassium 4.9 Chloride 106 Carbon Dioxide 24.4 Anion Gap 10 BUN < 5 L Creatinine 0.4 L Estim Creat Clear Calc 174.0 eGFR > 60 BUN/Creatinine Ratio 13 Glucose 114 H Calculated Osmolality 277 Calcium 9.1 Corrected Calcium 9.4 Phosphorus 3.5 Magnesium 1.5 L Total Bilirubin 0.3 AST < 8 ALT < 7 L Alkaline Phosphatase 53 Total Protein 5.8 Albumin 3.6 Globulin 2.2 L Albumin/Globulin Ratio 1.6 Lipase 22 Procalcitonin 0.08 Ur Collection Type Clean Catch Urine Color Yellow Urine Clarity Clear Urine pH 5.5 Ur Specific [place] 1.025 Urine Protein Trace Urine Glucose (UA) Negative Urine Ketones Negative Urine Blood 1+ A Urine Nitrite Negative Urine Bilirubin Negative Urine Urobilinogen (Auto) Negative Ur Leukocyte Esterase Negative Urine RBC 2 Urine WBC 3 Ur Squamous Epith Cells 3 Urine Bacteria None Ur Culture Indicated? Not Indicated Impressions Impression: Peritonitis most likely due to infection however worsening abdominal pain since admission despite Zosyn with development of vomiting Case discussed with general surgeon on-call Dr. Goldman and he will evaluate the patient Continue Zosyn Pain management NPO except meds [employer] OFFICE INSTALLER - A/P Assessment and plan (1) Peritonitis: Status: Acute Time Spent With Patient Time: Total time spent is greater than 50% in coordination of care (as documented) at patient's floor/unit and/or counseling patient: Time with patient: 25 - 35 minutes
[2025-01-24 08:00] VITALS: BP 129/94; PULSE 112; RESP 22; TEMP 36.6; O2SAT 96
[2025-01-24 08:56] LABS: Basophils # (Auto) 0.0 Thou/mm3 (0.0-0.2); Basophils % (Auto) 0 % (0-2.5); Eosinophils # (Auto) 0.0 Thou/mm3 (0.0-0.5); Eosinophils % (Auto) 0 % (0-10); Hematocrit 32.0 % (36.0-46.0); Hemoglobin 10.6 g/dL (12.0-16.0); Immature Granulocytes Auto 0.07 Thou/mm3 (0.00-0.00); Lymphocytes # (Auto) 1.5 Thou/mm3 (1.0-4.8); Lymphocytes % (Auto) 11 % (10-50); Mean Corpuscular HGB Conc 33.1 g/dl (31.0-37.0); Mean Corpuscular Hemoglobin 29.7 pg (25.0-35.0); Mean Corpuscular Volume 90 fL (80-100); Monocytes # (Auto) 0.7 Thou/mm3 (0.0-0.8); Monocytes % (Auto) 5 % (0-12); Neutrophils # (Auto) 12.0 Thou/mm3 (1.8-7.7); Neutrophils % (Auto) 84 % (37-80); Nucleated Red Blood Cell # 0.00 Thou/mm3 (0.00-0.00); Nucleated Red Blood Cell % 0 /100 WBC (0); Platelet Count 395 Thou/mm3 (140-440); RDW Standard Deviation 40.7 fL (36.4-46.3); Red Blood Count 3.57 Miln/mm3 (4.00-5.20); White Blood Count 14.3 Thou/mm3 (3.6-11.0)
--- NOTE | 2025-01-24 09:09 | PD.SURCONS ---
HPI Consult details Consult date: 01/24/25 Reason for consultation narrative: Patient was seen in consultation because of some abdominal pain following hysterectomy 2 weeks ago History of present illness: History of present illness revealed that the patient was doing very well since undergoing laparoscopic hysterectomy on of this month. She was discharged and was subsequently taking some Augmentin and tolerating diet. However she started having pain in the past couple of days and yesterday she came to the emergency room mostly because of lower abdominal pain. She denies any history of nausea or vomiting but she has pain going down into the vaginal area. The patient was able to eat but the bowel movement became a problem because of the pain. She had no trouble voiding. Past Medical History Past Medical History NEUROLOGIC: Negative Neurological Disorders or Seizures CARDIAC: Negative Cardiac Disorders or Congestive Heart Failure RESPIRATORY: Positive Asthma; Negative Chronic Obstructive Pulmonary Disease (COPD) GASTROINTESTINAL: Positive Gastrointestinal Disorders and Gastroesophageal Reflux Disease; Negative Hepatitis or Colorectal Cancer GENITOURINARY: Negative Genitourinary Disorders, Renal Disease or Prostate Cancer REPRODUCTIVE: Positive Endometriosis and Previous Pregnancies; Negative Breast Cancer, Pelvic Inflammatory Disease or Testicular Cancer MUSCULOSKELETAL: Negative Musculoskeletal Disorders or Bone Cancer ENDOCRINE: Negative Endocrine Disorders, Diabetes Mellitus Type 1 or Diabetes Mellitus Type 2 HEMATOLOGIC: Positive Anemia; Negative Blood Disorders or Sickle Cell Disease PSYCHO/SOCIAL: Positive Recreational Drug Use, Depression and Anxiety OTHER HISTORY: Positive Hospitalization; Negative Autoimmune Disease, Down Syndrome, Developmental Delay, Shingles, Falls, Blood Transfusions, Blood Transfusion Reaction, Anesthesia Reactions, Organ Transplant, Chemotherapy, Radiation Therapy, Hyperbaric Therapy, MRSA, VRSA, Vancomycin-Resistant Enterococci, Human Immunodeficiency Virus (HIV), Chicken Pox, Measles, Mumps, Rubella (Kazakh Measles), Pertussis, Clostridium Difficile, Cancer, Breast Cancer, Cervical Cancer, Colorectal Cancer, Lung Cancer, Ovarian Cancer, Prostate Cancer or Testicular Cancer Family History FAMILY HISTORY: Positive Family Cardiac Disorders and Family Surgery; Negative Family Psychiatric Problems, Family Respiratory Disorders, Family Gastrointestinal Problems, Family Cancer or Family Anesthesia Reaction OTHER FAMILY HX: Heart Disease and HTN Surgical History SURGICAL: Positive Abdominal Surgery, Hysterectomy and Tubal Ligation; Negative Section or Organ Transplant Social History SMOKING STATUS: Never smoker SECOND HAND EXPOSURE: Yes SUBSTANCE USE: marijuana (Occasional) Meds Home Medications and Allergies Home Medications ?Medication ?Instructions ?Recorded ?Confirmed ?Type hydrocodone 5 mg-acetaminophen 325 1 tab PO Q6H PRN pain 01/08/25 01/23/25 History mg tablet tramadol 50 mg tablet 50 mg PO Q8H PRN pain 01/08/25 01/23/25 History Allergies Allergy/AdvReac Type Severity Reaction Status Date / Time codeine Allergy Rash Verified 01/11/25 07:46 Exam Vital Signs Temp Pulse Resp BP Pulse Ox O2 Del Method 97.0 F 89 16 116/76 100 Room Air 01/24/25 04:00 01/24/25 04:00 01/24/25 04:00 01/24/25 04:00 01/24/25 04:00 01/24/25 04:00
--- NOTE | 2025-01-24 09:14 | PD.SURCONS ---
HPI Consult details Consult date: 01/24/25 Reason for consultation narrative: Patient was seen on consultation because of abdominal pain following hysterectomy History of present illness: History of present illness revealed that the patient was doing very well since undergoing laparoscopic hysterectomy on of this month. She was discharged and was subsequently taking some Augmentin and tolerating diet. However she started having pain in the past couple of days and yesterday she came to the emergency room mostly because of lower abdominal pain. She denies any history of nausea or vomiting but she has pain going down into the vaginal area. The patient was able to eat but the bowel movement became a problem because of the pain. She had no trouble voiding. Past Medical History Past Medical History NEUROLOGIC: Negative Neurological Disorders or Seizures CARDIAC: Negative Cardiac Disorders or Congestive Heart Failure RESPIRATORY: Positive Asthma; Negative Chronic Obstructive Pulmonary Disease (COPD) GASTROINTESTINAL: Positive Gastrointestinal Disorders and Gastroesophageal Reflux Disease; Negative Hepatitis or Colorectal Cancer GENITOURINARY: Negative Genitourinary Disorders, Renal Disease or Prostate Cancer REPRODUCTIVE: Positive Endometriosis and Previous Pregnancies; Negative Breast Cancer, Pelvic Inflammatory Disease or Testicular Cancer MUSCULOSKELETAL: Negative Musculoskeletal Disorders or Bone Cancer ENDOCRINE: Negative Endocrine Disorders, Diabetes Mellitus Type 1 or Diabetes Mellitus Type 2 HEMATOLOGIC: Positive Anemia; Negative Blood Disorders or Sickle Cell Disease PSYCHO/SOCIAL: Positive Recreational Drug Use, Depression and Anxiety OTHER HISTORY: Positive Hospitalization; Negative Autoimmune Disease, Down Syndrome, Developmental Delay, Shingles, Falls, Blood Transfusions, Blood Transfusion Reaction, Anesthesia Reactions, Organ Transplant, Chemotherapy, Radiation Therapy, Hyperbaric Therapy, MRSA, VRSA, Vancomycin-Resistant Enterococci, Human Immunodeficiency Virus (HIV), Chicken Pox, Measles, Mumps, Rubella (Georgian Measles), Pertussis, Clostridium Difficile, Cancer, Breast Cancer, Cervical Cancer, Colorectal Cancer, Lung Cancer, Ovarian Cancer, Prostate Cancer or Testicular Cancer Family History FAMILY HISTORY: Positive Family Cardiac Disorders and Family Surgery; Negative Family Psychiatric Problems, Family Respiratory Disorders, Family Gastrointestinal Problems, Family Cancer or Family Anesthesia Reaction OTHER FAMILY HX: Heart Disease and HTN Surgical History SURGICAL: Positive Abdominal Surgery, Hysterectomy and Tubal Ligation; Negative Section or Organ Transplant Social History SMOKING STATUS: Never smoker SECOND HAND EXPOSURE: Yes SUBSTANCE USE: marijuana (Occasional) Meds Home Medications and Allergies Home Medications ?Medication ?Instructions ?Recorded ?Confirmed ?Type hydrocodone 5 mg-acetaminophen 325 1 tab PO Q6H PRN pain 01/08/25 01/23/25 History mg tablet tramadol 50 mg tablet 50 mg PO Q8H PRN pain 01/08/25 01/23/25 History Allergies Allergy/AdvReac Type Severity Reaction Status Date / Time codeine Allergy Rash Verified 01/11/25 07:46 Exam Vital Signs Temp Pulse Resp BP Pulse Ox O2 Del Method 97.0 F 89 16 116/76 100 Room Air 01/24/25 04:00 01/24/25 04:00 01/24/25 04:00 01/24/25 04:00 01/24/25 04:00 01/24/25 04:00 Narrative Exam Physical examination revealed a thin built pleasant female who is 5 feet 5 inches tall weighing 116 pounds. She has normal vital Constitutional Constitutional: no acute distress Routine Abdominal Exam Comments: Examination of the abdomen showed no tenderness anywhere abdomen is soft flat but palpation of the suprapubic area shows some tenderness. Rectal was not done because of the pain she has been experiencing laboratories were within normal limits Results Results: Laboratory Laboratory Narrative: Patient's laboratory workup showed leukocytosis around 14,500 Results: Imaging Imaging narrative: I reviewed the CT scan which showed some inflammatory changes with the fluid in the pelvis suggesting peritonitis Assessment & Plan Additional Assessment Additional comments: Impression: No evidence of peritonitis in this young woman. Her abdomen is soft and she is willing to eat if allowed. There is no evidence of peritonitis clinically Plan Plan: The changes in the pelvis are probably related to the recent surgery. Peritonitis cannot be diagnosed on the CT scan it is more of a clinical diagnosis. I will treat her symptomatically and observe her. No acute surgical condition is present in this patient.
--- NOTE | 2025-01-24 09:15 | PC.NURSE ---
Dr Okeefe here to see pt., for surgical consult, no new verbal orders received at this time.
--- NOTE | 2025-01-24 09:57 | PC.SS ---
Patient is a 29 year old female presenting to the hospital for peritonitis. RACE RELATIONS ADVISER met with patient at bedside, role and reason explained for visit. Patient confirmed that she lives at [address] [place] [address] in [place] with her partner Dhruv Sarah. Patient does not use DME at home, she is unemployed, and pharmacy of choice is [facility]. Patient stated that her PCP is Nat Cristobal at [facility]. Patient stated that her last appointment was with Dr. Rodríguez on 01/08/25. Patient stated that in case she is unable to make medical decisions on her own she would like her life partner Dhruv Sarah to make them PH: [phone]. Patient stated that once she?s medically clear she would like to return home and her partner will provide transportation. PCP: Dr. Johns Decision Maker: partner, Dhruv Sarah PH: [phone] D/C: home
[2025-01-24 12:00] VITALS: BP 125/78; PULSE 83; RESP 17; TEMP 36.7; O2SAT 99
[2025-01-24 13:59] LABS: Basophils # (Auto) 0.0 Thou/mm3 (0.0-0.2); Basophils % (Auto) 0 % (0-2.5); Eosinophils # (Auto) 0.0 Thou/mm3 (0.0-0.5); Eosinophils % (Auto) 0 % (0-10); Hematocrit 31.4 % (36.0-46.0); Hemoglobin 10.6 g/dL (12.0-16.0); Immature Granulocytes Auto 0.06 Thou/mm3 (0.00-0.00); Lymphocytes # (Auto) 1.4 Thou/mm3 (1.0-4.8); Lymphocytes % (Auto) 10 % (10-50); Mean Corpuscular HGB Conc 33.8 g/dl (31.0-37.0); Mean Corpuscular Hemoglobin 30.3 pg (25.0-35.0); Mean Corpuscular Volume 90 fL (80-100); Monocytes # (Auto) 0.6 Thou/mm3 (0.0-0.8); Monocytes % (Auto) 4 % (0-12); Neutrophils # (Auto) 11.7 Thou/mm3 (1.8-7.7); Neutrophils % (Auto) 85 % (37-80); Nucleated Red Blood Cell # 0.00 Thou/mm3 (0.00-0.00); Nucleated Red Blood Cell % 0 /100 WBC (0); Platelet Count 381 Thou/mm3 (140-440); RDW Standard Deviation 40.8 fL (36.4-46.3); Red Blood Count 3.50 Miln/mm3 (4.00-5.20); White Blood Count 13.8 Thou/mm3 (3.6-11.0)
[2025-01-24 14:30] LABS: Alanine Aminotransferase 11 U/L (10-49); Albumin, Serum 4.3 gm/dL (3.5-5.0); Albumin/Globulin Ratio 1.6 (1.2-2.2); Alkaline Phosphatase 72 U/L (46-116); Anion Gap 12 (7-16); Aspartate Amino Transferase 16 U/L (0-34); BUN/Creatinine Ratio 10 Ratio (12-20); Bilirubin,Total 0.3 mg/dL (0.3-1.2); Blood Urea Nitrogen < 5 mg/dL (9-23); Calcium 10.2 mg/dL (8.3-10.6); Calcium (Corrected) 10.2 mg/dL (8.5-10.1); Carbon Dioxide 24.8 mMol/L (20.0-31.0); Chloride 106 mMol/L (98-107); Creatinine (Component) 0.5 mg/dL (0.6-1.3); Estimated Creatinine Clearance 140.8 mL/min (>60); Globulin 2.7 gm/dL (2.3-3.5); Glucose 103 mg/dL (74-106); Osmolality,Calculated 282 (275-295); Potassium 3.7 mMol/L (3.4-5.1); Sodium 143 mMol/L (136-145); Total Protein 7.0 gm/dL (5.7-8.2); eGFR > 60 See Note
[2025-01-24 16:00] VITALS: BP 120/70; PULSE 97; RESP 16; TEMP 36.7; O2SAT 100
[2025-01-24 20:00] VITALS: BP 131/84; PULSE 95; RESP 17; TEMP 36.6; O2SAT 100
[2025-01-25] MEDS: HYDROcodone/APAP 5/325 TABLET 1 TAB PO ×3 (02:23→17:25)
[2025-01-25 04:00] VITALS: BP 122/79; PULSE 66; RESP 16; TEMP 36.1; O2SAT 99
[2025-01-25] MEDS: PIPER/TAZO INJ 4.5 GM in SODIUM CHLORIDE 0.9% (POP) 100 ML IV ×2 (05:06→13:30)
[2025-01-25 05:36] LABS: Basophils # (Auto) 0.0 Thou/mm3 (0.0-0.2); Basophils % (Auto) 0 % (0-2.5); Eosinophils # (Auto) 0.1 Thou/mm3 (0.0-0.5); Eosinophils % (Auto) 1 % (0-10); Hematocrit 27.1 % (36.0-46.0); Immature Granulocytes Auto 0.04 Thou/mm3 (0.00-0.00); Lymphocytes # (Auto) 2.4 Thou/mm3 (1.0-4.8); Lymphocytes % (Auto) 24 % (10-50); Mean Corpuscular HGB Conc 32.5 g/dl (31.0-37.0); Mean Corpuscular Hemoglobin 29.3 pg (25.0-35.0); Mean Corpuscular Volume 90 fL (80-100); Monocytes # (Auto) 0.8 Thou/mm3 (0.0-0.8); Monocytes % (Auto) 8 % (0-12); Neutrophils # (Auto) 6.6 Thou/mm3 (1.8-7.7); Neutrophils % (Auto) 67 % (37-80); Nucleated Red Blood Cell # 0.00 Thou/mm3 (0.00-0.00); Nucleated Red Blood Cell % 0 /100 WBC (0); Platelet Count 339 Thou/mm3 (140-440); RDW Standard Deviation 41.3 fL (36.4-46.3); Red Blood Count 3.00 Miln/mm3 (4.00-5.20); White Blood Count 10.0 Thou/mm3 (3.6-11.0)
[2025-01-25 05:44] LABS: Hemoglobin 8.8 g/dL (12.0-16.0)
[2025-01-25 08:00] VITALS: BP 119/81; PULSE 96; RESP 18; TEMP 36.7; O2SAT 99
--- NOTE | 2025-01-25 10:57 | ESDS_ITS ---
Planned Discharge Date 01/25/25 DS: Providers Provider Date of admission: 01/23/25 12:11 Primary care physician: Nat Cristobal NP Admitting Provider: Tae Berumen MD Attending Provider on Admission: Robb Vega MD Consults: 01/23/25 15:46 Referral Infection Control Routine Comment: Reason for Infection Control Referral: Readmitted within 30 days 01/24/25 09:01 Consult to General Surgery Routine Comment: Dr Okeefe notified Consulting Provider: Practice Provider 01/24/25 09:03 Consult to Physician Routine Comment: Consulting Provider: Rex Okeefe Attending Provider on DC: Lorene Moreland MD Discharging Provider: Lorene Moreland MD DS: Diagnosis Discharge Diagnosis (1) Post-operative infection: Status: Acute (2) Peritonitis: Status: Acute Problem List Completed Was Problem List Reviewed/Reconciled?: Yes Hospital Course Hospital Course Hospital course: Monserrat is a 29yo s/p uncomplicated TLH on 01/11 for uterine prolapse and pelvic congestion syndrome with related pain who presented for fevers up to 103F at home and pelvic/abdominal pain, diagnosed with non-specific inflammatory changes within the pelvis likely 2/2 infection with no abscess noted and successfully treated with IV zosyn. WBC count has decreased from 14.3 to 10. Abdominal pain is fully resolved (patient able to have large bowel movement yesterday) and patient states she feels much, much better . No fevers since admission, nearly 48 hours ago. Blood cultures negative, UA benign. She strongly desires discharge home. She is ambulating without lightheadedness, tolerating regular diet no n/v, spontaneously voiding without issue. She has no chest pain or shortness of breath. No fevers or chills. Pain well controlled. Vitals normal, benign exam. Hemodynamically stable. Will give 1pm dose of zosyn (dosing q8hr) so that she technically has IV abx therapy for 48hr, and then discharge home. 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 Vital Signs Temp Pulse Resp BP Pulse Ox O2 Del Method 98.1 F 96 18 119/81 99 Room Air 01/25/25 08:00 01/25/25 08:00 01/25/25 08:00 01/25/25 08:00 01/25/25 08:00 01/25/25 08:00 Narrative Exam General: well developed, well nourished, no acute distress, conversant Cardiac: normal heart rate Lungs: breathing without distress Abdomen: soft, non-tender to deep palpation in all quadrants, no rebound or guarding, trocar sites well healed/sealed with no erythema/drainage/induration Extremities: no pain with palpation of calves Discharge Plan Plan Patient Disposition: HOME (Self Care) Patient condition on transfer: Stable Prescriptions/Referrals Prescriptions/Med Rec: New amoxicillin-pot clavulanate 875-125 mg tablet 1 tab PO Q8H Qty: 7 0RF Continued hydrocodone-acetaminophen 5-325 mg tablet 1 tab PO Q6H PRN (Reason: pain) Patient Comments: TAKE 1 TABLET BY MOUTH EVERY 6 HOURS NEEDED FOR PAIN Discontinued tramadol 50 mg tablet 50 mg PO Q8H PRN (Reason: pain) Patient Comments: TAKE 1 TABLET BY MOUTH 3 TIMES DAILY NEEDED FOR ABDOMINAL/PELVIC PAIN Referrals: Nat Cristobal NP [Primary Care Provider] - Robb Vega MD [Physician] - Patient/Caregiver Discharge Instructions Discharge Activity: activity as tolerated and other Other Discharge Activity Instructions:: vaginal rest and no heavy lifting more than 10 pounds until 6 weeks post-op Take full course of augmentin antibiotic. 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 Other Discharge Diet Instructions: regular diet Education Materials: After Laparoscopic ... Print Language: Lao Activity Restrictions/Additional Instructions: follow up with Dr. Vega as scheduled this week Stand Alone Forms: Dianna Award Info., Patient Portal Info Letter Discharge Order Discharge Orders: Discharge (Routine); Ordered 01/25/25 Ordered By: Lorene Moreland (1) Post-operative infection Qualifiers: Encounter type: initial encounter Postoperative infection type: organ or organ space surgical site Qualified Code(s): T81.43XA - Infection following a procedure, organ and space surgical site, initial encounter
[2025-01-25 12:00] VITALS: BP 110/81; PULSE 87; RESP 17; TEMP 36.4; O2SAT 100
[2025-01-25 16:00] VITALS: BP 119/87; PULSE 105; RESP 18; TEMP 37.1; O2SAT 100
== END 2025-01-25 18:10 | disposition home or self-care (01) | DRG 721 ==
LOC: SERX 12:23 → SERHOLD 13:04 → S3SX 15:38
PROVIDERS: Physician Assistant; Admitting Provider Specialist; Emergency Provider Family Medicine; PCP Nurse Practitioner Family; Visit Provider Obstetrics & Gynecology
DX: T81.40XA Infection following a procedure, unspecified, initial encounter (principal); K65.9 Peritonitis, unspecified; N83.202 Unspecified ovarian cyst, left side; Z90.710 Acquired absence of both cervix and uterus; Z88.5 Allergy status to narcotic agent
CPT/HCPCS: 36415; 74176; 76856; 80053; 81001; 83690; 83735; 84100; 84145; 85025; 85610; 85730; 87040; 87081; 93005; 96361; 96365; 96375; 96376; 99284; A4649; J1885; J2270; J2405; J2470; J2543; J7030; A9270

== ENCOUNTER 2025-01-27 08:34 | Outpatient (AMB) | payer MEDICAID, SELFPAY ==
[2025-01-27 08:48] VITALS: BP 113/78; PULSE 105; RESP 18; TEMP 36.2; O2SAT 98
--- NOTE | 2025-01-27 08:48 | GYNCLNT_ITS ---
Vital Signs 01/27/25 08:48 Weight 52.787 kg Weight Measurement Method Standing Scale BP 113/78 Blood Pressure Source Automatic Cuff Blood Pressure Location Left Upper Arm Position Sitting Respiration 18 Pulse 105 H Pulse Source Monitor Temp 97.2 F Temp Source Oral Pulse Oximetry (%) 98 Oxygen Delivery Method Room Air Allergies/Home Meds Allergies & Medications Allergies codeine Allergy (Verified 01/27/25 08:54) Rash Medication Reconciliation hydrocodone 5 mg-acetaminophen 325 mg tablet 1 tab PO Q6H PRN pain 01/08/25 [History Confirmed 01/27/25] amoxicillin 875 mg-potassium clavulanate 125 mg tablet 1 tab PO BID 14 days #28 tabs 01/27/25 [Rx] Intake Visit Data Collection New Patient or Established: Established Patient (seen at [facility] within 3 years) Reason for Visit:: POST OP Seen by Clinical Staff ONLY (RN/MA): No Design Director Required: No Do You Feel Safe at Home: Yes Authorities Contacted: N/A PCP or OBGYN visit in last 3 months: Yes Date of Last PCP or OBGYN visit: 01/25/25 Hx Now: No Are you currently on any form of Control: No Pain Present Currently: No Pain Scale Used: Gates-Villalpando/Numerical Pain scale:: 0 Smoking Status Smoking Status: Never smoker 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 Menstrual regularity: regular Flow: normal Monthly: Yes Age at menarche: 13 Menopausal: No Currently sexually active: No SHOP GIRL: Past Medical History Past Medical History: No Hx Neurological Disorders, No Hx Breast Cancer, No Hx Cardiac Disorders, No Hx Cancer, No Hx Blood Disorders, Yes Hx Anemia, Yes Hx Gastrointestinal Disorders, No Hx Renal Disease, No Hx Diabetes Mellitus Type 1, No Hx Diabetes Mellitus Type 2, Yes Hx Tubal Ligation and Yes Hx Hysterectomy Questionnaires Covid-19 Vaccine Questionnaire Has patient been vacinated for Covid-19 Have you been vacinated for Covid-19: Yes PHQ-9 PHQ-2 Over the last 2 weeks, how often have you been bothered by any of the following problems? 1. Little interest or pleasure in doing things: not at all 2. Feeling down, depressed, or hopeless: not at all Total score: 0 PHQ-9 3. Trouble falling or staying asleep, or sleeping too much: Not at all 4. Feeling tired or having little energy: Not at all 5. Poor appetite or overeating: Not at all 6. Feeling bad about yourself - or that you are a failure or have let yourself or your family down: Not at all 7. Trouble concentrating on things, such as reading the newspaper or watching television: Not at all 8. Moving or speaking so slowly that other people could have noticed? - Or the opposite - being so fidgety or restless that you have been moving around a lot more than usual: not at all 9. Thoughts that you would be better off or of hurting yourself in some way: Not at all Total score: 0 If you checked off any problems, how difficult have these problems made it for you to do your work, take care of things at home, or get along with other people?: not difficult at all Source: Developed by Drs. Mack Bowers, Sahra Sarmiento, Shon Rojas and colleagues, with an educational anabella from [employer]. Depression screen completed yes Social History Living Situation History Lives With: Significant Other Housing: House Tobacco History Smoking Status: Never smoker Second Hand Smoke Exposure: Yes Alcohol History Alcohol Intake: Never Alcohol Intake Frequency: holidays/special occasions only Substance Use History Substance Use: last THC use 11/25/2019 Domestic Abuse History Do You Feel Safe at Home: Yes History of Present Illness HPI Narrative Monserrat Simpson presents for a 2-week postoperative visit following a total laparoscopic hysterectomy. She was readmitted to the hospital with nonspecific peritonitis, which resolved after 48 hours of IV antibiotics. The patient reports significant improvement in her pelvic symptoms compared to her pre-surgery condition. She states, I do not feel any of the pain I used to feel, indicating successful relief of her primary symptoms. The patient is currently on oral antibiotics, which were prescribed upon hospital discharge. She is adhering to postoperative activity restrictions, including avoiding heavy exercise, sexual intercourse, and lifting objects from the floor. Since her surgery and subsequent hospital readmission, the patient's overall health appears to be improving. She confirms feeling better now compared to during her hospital stay. The infection that led to her readmission has resolved with antibiotic treatment, and she is continuing to heal from the surgery. The patient has been taking Augmentin twice a day, which was prescribed upon hospital discharge and is being extended for 2 more weeks. She received Ivasocin in the hospital for infection treatment. The patient is currently allowed light work, standing, walking, driving, and grocery shopping but is restricted from heavy exercise, weights, squats, sexual intercourse, or lifting from the floor. ROS: General: Negative for pain. Genitourinary: Negative for pelvic symptoms. Exam General General Appearance: alert, in no apparent distress and healthy appearing Head Head exam: atraumatic Neck Neck exam: Present normal inspection and trachea midline Chest Chest inspection: Present normal inspection and symmetric chest wall rise External exam: Present normal external exam; Absent tenderness Neuro Neurological exam: Present oriented X3 Psych Psychiatric exam: Present normal affect and normal mood Office Procedures OB Clinic LOC & Office Proc's Nursing/Assessment Patient Status: Established Patient OB Clinic Nursing Assessment: Medication Reconciliation, Update PMH in EMR and Vital Signs OB Clinic Coordination of Care: Education Complex Pt/Fam, Consent,records obtained, informed consent, Lab and Imaging orders and Staff clarify orders Established Patient Charge Established Patient Point Assignment: 80 Established Patient Point Charge: EP Level 3 (80-115) Assessment & Plan Diagnosis / Problem List (1) Post-operative infection: Status: Acute Qualifiers: Encounter type: initial encounter Postoperative infection type: organ or organ space surgical site Qualified Code(s): T81.43XA - Infection following a procedure, organ and space surgical site, initial encounter Plan Status post total laparoscopic hysterectomy with postoperative peritonitis: - Patient is 2 weeks status post total laparoscopic hysterectomy. - History of readmission for nonspecific peritonitis resolved with IV antibiotics. - Reports significant improvement in pelvic symptoms compared to pre-surgery. - Currently in recovery phase with expectation of feeling more normal in approximately one more week. Plan: - Continue Augmentin PO BID for 2 weeks from hospital admission date. - Follow-up appointment in 2 weeks for internal examination and stitch absorption check. - Activity restrictions: ? Light work, standing, walking, driving, and grocery shopping permitted. ? Avoid heavy exercise, weights, squats, sexual intercourse, and lifting from floor. - Clear patient for all normal activities at 1-month follow-up if recovery progresses as expected.
== END 2025-01-27 09:00 | disposition home or self-care (01) ==
LOC: HODSOBC 08:34
PROVIDERS: Supervising Provider Obstetrics & Gynecology; Visit Provider Obstetrics & Gynecology
DX: T81.40XA Infection following a procedure, unspecified, initial encounter (principal); K65.9 Peritonitis, unspecified; Z90.710 Acquired absence of both cervix and uterus; Y83.6 Removal of other organ (partial) (total) as the cause of abnormal reaction of the patient, or of later complication, without mention of misadventure at the time of the procedure
CPT/HCPCS: 99213; G0463

== ENCOUNTER 2025-02-06 10:40 | Emergency (ER) | payer MEDICAID, SELFPAY ==
[2025-02-06 11:01] VITALS: BP 149/95; PULSE 64; RESP 19; TEMP 37; O2SAT 100; BMI 19.1
--- NOTE | 2025-02-06 11:14 | EDRME_ITS ---
Rapid Medical Screening Exam [facility] Arrival date/time: 02/06/25 10:40 Chief Complaint: Abdominal Pain Time Seen by Provider: 02/06/25 11:01 Vital signs: Vital Signs Temperature 98.6 F 02/06/25 11:01 Pulse Rate 64 02/06/25 11:01 Respiratory Rate 19 02/06/25 11:01 Blood Pressure 149/95 H 02/06/25 11:01 Pulse Oximetry (%) 100 02/06/25 11:01 Oxygen Delivery Method Room Air 02/06/25 11:01 [facility] Narrative: 29-year-old female with hysterectomy on January 21. Was recently admitted for postop infection. States that she is back because she is having again vomiting, pain fevers that go up to 102. Also hurts when she urinates. But she is concerned it is about her postop infection again.
[2025-02-06] MEDS: ONDANSETRON ODT 4 MG TABRAP PO (11:21)
[2025-02-06] MEDS: KETOROLAC INJ 30 MG/ML VIAL IM (11:21)
--- NOTE | 2025-02-06 12:05 | PC.NURSE ---
Pt. here from home to room 19, pt. states she has been taking her antibiotics X4 a day and then pt. states her primary M.D. changed prescription to X 2 a day and pt. states the pain and vomiting came back this morning. Pt. was previously admitted here at the hospital. Warm blanket given.
[2025-02-06 12:07] LABS: Lactate (Lactic Acid) 1.2 mMol/L (0.4-2.0)
[2025-02-06 12:08] LABS: Base Excess, Venous 5 (-3-3); O2 Saturation, Venous 64 % (96-97); PCO2, Venous 36 mmHg (36-56); PO2, Venous 30 mmHg (15-58); pH, Venous 7.50 (7.33-7.66)
[2025-02-06 12:10] LABS: Basophils # (Auto) 0.0 Thou/mm3 (0.0-0.2); Basophils % (Auto) 0 % (0-2.5); Eosinophils # (Auto) 0.0 Thou/mm3 (0.0-0.5); Eosinophils % (Auto) 0 % (0-10); Hematocrit 32.3 % (36.0-46.0); Hemoglobin 10.5 g/dL (12.0-16.0); Immature Granulocytes Auto 0.10 Thou/mm3 (0.00-0.00); Lymphocytes # (Auto) 1.4 Thou/mm3 (1.0-4.8); Lymphocytes % (Auto) 17 % (10-50); Mean Corpuscular HGB Conc 32.5 g/dl (31.0-37.0); Mean Corpuscular Hemoglobin 28.0 pg (25.0-35.0); Mean Corpuscular Volume 86 fL (80-100); Monocytes # (Auto) 0.1 Thou/mm3 (0.0-0.8); Monocytes % (Auto) 2 % (0-12); Neutrophils # (Auto) 6.3 Thou/mm3 (1.8-7.7); Neutrophils % (Auto) 80 % (37-80); Nucleated Red Blood Cell # 0.00 Thou/mm3 (0.00-0.00); Nucleated Red Blood Cell % 0 /100 WBC (0); Platelet Count 608 Thou/mm3 (140-440); RDW Standard Deviation 39.6 fL (36.4-46.3); Red Blood Count 3.75 Miln/mm3 (4.00-5.20); White Blood Count 8.0 Thou/mm3 (3.6-11.0)
[2025-02-06 12:28] LABS: Alanine Aminotransferase 13 U/L (10-49); Albumin, Serum 4.4 gm/dL (3.5-5.0); Albumin/Globulin Ratio 1.4 (1.2-2.2); Alkaline Phosphatase 73 U/L (46-116); Anion Gap 9 (7-16); Aspartate Amino Transferase 15 U/L (0-34); BUN/Creatinine Ratio 10 Ratio (12-20); Bilirubin,Total < 0.2 mg/dL (0.3-1.2); Blood Urea Nitrogen 6 mg/dL (9-23); Calcium 9.8 mg/dL (8.3-10.6); Calcium (Corrected) 9.8 mg/dL (8.5-10.1); Carbon Dioxide 28.7 mMol/L (20.0-31.0); Chloride 103 mMol/L (98-107); Creatinine (Component) 0.6 mg/dL (0.6-1.3); Estimated Creatinine Clearance 116.0 mL/min (>60); Globulin 3.1 gm/dL (2.3-3.5); Glucose 156 mg/dL (74-106); Osmolality,Calculated 281 (275-295); Potassium 4.6 mMol/L (3.4-5.1); Sodium 141 mMol/L (136-145); Total Protein 7.5 gm/dL (5.7-8.2); eGFR > 60 See Note
[2025-02-06 12:35] LABS: Procalcitonin 0.05 ng/ml (0.0-0.49)
--- NOTE | 2025-02-06 13:42 | XR_ITS ---
Examination: Abdomen series 3 views including AP upright chest Technique: AP portable upright chest, AP upright AP supine abdomen 3 views Date and time: February 06, 2025, 1430 hrs. Indications: Lower abdominal pain beginning 2 months ago. Findings: Normal heart size. Lungs are clear. No free air. Nonobstructive bowel gas pattern. No renal or ureteral calculi Impression: Nonobstructive bowel gas pattern
--- NOTE | 2025-02-06 13:55 | EDNOTE_ITS ---
ED Abdominal Pain RME/HPI General Chief Complaint: Abdominal Pain Stated complaint: ABD PAIN, N/V Time seen by provider: 02/06/25 11:01 Arrival date/time: 02/06/25 10:40 RME / HPI RME / HPI narrative: 29-year-old female with hysterectomy on January 21. Was recently admitted for postop infection. States that she is back because she is having again vomiting, pain fevers that go up to 102. Also hurts when she urinates. But she is conc erned it is about her postop infection again. DR. MEJÍA MAIN ED EVALUATION: 29-year-old female with past surgical history of hysterectomy on January 21 presents to the Emergency Department with complaint of diffuse abdominal pain, most severe in the lower abdomen and suprapubic region. Associated symptoms include dysuria, pain with defecation, nausea, and a few episodes of vomiting; but now mainly nausea. She also reports dark stools without visible blood. Smokes marijuana. Related Data Home Medications ?Medication ?Instructions ?Recorded ?Confirmed hydrocodone 5 mg-acetaminophen 325 1 tab PO Q6H PRN pa in 01/08/25 01/27/25 mg tablet Previous Rx's ?Medication ?Instructions ?Recorded amoxicillin 875 mg-potassium 1 tab PO BID 14 days #28 tabs 01/27/25 clavulanate 125 mg tablet oseltamivir 75 mg capsule (Tamiflu) 75 mg PO BID 5 day s #10 caps 02/06/25 Allergies Allergy/AdvReac Type Severity Reaction Status Date / Time codeine Allergy Rash Verified 02/06/25 10:44 Review of Systems Review of Systems Systems Reviewed: All systems reviewed, normal except as documented Past Medical History Past Medical History RESPIRATORY: Positive Asthma GASTROINTESTINAL: Positive Gastrointestinal Disorders REPRODUCTIVE: Positive Endometriosis and Previous Pregnancies HEMATOLOGIC: Positive Anemia PSYCHO/SOCIAL: Positive Recreational Drug Use (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), Depression and Anxiety OTHER HISTORY: Positive Hospitalization Family History FAMILY HISTORY: Positive Family Cardiac Disorders and Family Surgery Surgical History SURGICAL: Positive Abdominal Surgery and Tubal Ligation; Negative Section Social History SMOKING STATUS: Never smoker SECOND HAND EXPOSURE: Yes SUBSTANCE USE: marijuana (Occasional) ED Exam Narrative Physical exam: GENERAL APPEARANCE: alert and oriented x 4, well-developed, well-nourished, no acute distress VITALS: All vitals were reviewed and the pulse ox is 100% on room air, which is normal according to my interpretation. HEENT: Normocephalic, atraumatic; pupils equal, round, reactive to light; EOMI; mucous membranes pink, moist; oropharynx clear NECK: Supple LUNGS: CTABL; no wheezes, no rales, no rhonchi HEART: Regular rate, regular rhythm; normal S1, S2; no murmurs ABDOMEN: non distended; normal BS; diffuse abdominal tenderness, greatest in the suprapubic region; no rebound; no masses, no organomegaly, no hernia BACK: no CVA tenderness EXTREMITIES: atraumatic; no edema NEUROLOGIC: awake; alert and oriented x4; cranial nerves II-XII grossly intact; no focal sensory or motor deficits PSYCHIATRIC: appropriate mood and affect SKIN: warm, dry, normal color; no rashes Course Quality Measures none Orders Category Date Time Status Bedside COVID-19 Antigen Test NOW Care 02/06/25 11:15 Active Bedside Influenza A&B Antigen Test NOW Care 02/06/25 11:16 Completed XR abdomen series w chest 1V Stat Exams 02/06/25 13:42 Completed Blood Culture (Lab) Stat Lab 02/06/25 11:58 Received CBC Stat Lab 02/06/25 11:55 Completed CMP [Comprehensive Metabolic Panel] Stat Lab 02/06/25 11:55 Completed Drug Screen,Urine Stat Lab 02/06/25 14:30 Completed Lactic Acid [Lactate (Lactic Acid)] Stat Lab 02/06/25 11:55 Completed Procalcitonin Stat Lab 02/06/25 11:55 Completed UA [Urinalysis] Stat Lab 02/06/25 14:30 Completed Urine Culture Stat Lab 02/06/25 14:30 Received VBG [Venous Blood Gas] Stat Lab 02/06/25 11:55 Completed Ketorolac Inj [Toradol Inj] Med 02/06/25 11:15 Discontinued 30 mg IM X1 ONE Morphine* Inj Med 02/06/25 13:56 Discontinued 4 mg IVP X1 ONE Ondansetron Inj [Zofran Inj] Med 02/06/25 13:45 Discontinued 4 mg IVP X1 ONE Ondansetron Odt [Zofran Odt] Med 02/06/25 11:15 Discontinued 4 mg PO X1 ONE Oseltamivir [Tamiflu] Med 02/06/25 15:11 Discontinued 75 mg PO X1 ONE Sodium Chloride 0.9% 1000 ml [Ns] 1,000 ml Med 02/06/25 13:45 Discontinued IV 999 mls/hr Vital Signs Vital signs: Vital Signs Temperature 98.6 F 02/06/25 11:01 Pulse Rate 64 02/06/25 11:01 Respiratory Rate 19 02/06/25 11:01 Blood Pressure 149/95 H 02/06/25 11:01 Pulse Oximetry (%) 100 02/06/25 11:01 Oxygen Delivery Method Room Air 02/06/25 11:01 Abdominal Pain MDM MDM Narrative MDM Narrative:: 29-year-old female with past surgical history of hysterectomy on January 21 with chief complaint of diffuse lower abdominal pain with nausea, vomiting, dysuria, and dark stools. Exam shows diffuse abdominal tenderness with suprapubic guarding. Labs, including U/A, and abdomen XR are indicated to evaluate for post-operative complications including abscess, bowel perforation, or urinary tract involvement. The patient tested positive for influenza A and B. Patient will be discharged with abdominal pain, Influenza A & B. Varsha Khan am scribing for and in the presence of Dr. Mejía. Patient data External records reviewed:: [facility] previous records Clinical information provided by:: patient Social determinants that could affect healthcare access:: none Patient has the following chronic illnesses:: Hysterectomy on January 21. Smokes marijuana. How is presenting disease/condition affected by chronic disease/condition?: exacerbated by Evaluation data The following diagnostics were reviewed and interpreted by me:: lab results and radiology exam(s) Lab and/or radiology exams considered but not ordered:: none Interpretation Summary: See narrative above. RADIOLOGY Procedure(s): XR abdomen series w chest 1V Accession Number(s): [id number] cc: Thai Ignacio MD; Nat Cristobal NP; Michelle Mejía MD~ Examination: Abdomen series 3 views including AP upright chest Technique: AP portable upright chest, AP upright AP supine abdomen 3 views Date and time: February 06, 2025, 1430 hrs. Indications: Lower abdominal pain beginning 2 months ago. Findings: Normal heart size. Lungs are clear. No free air. Nonobstructive bowel gas pattern. No renal or ureteral calculi Impression: Nonobstructive bowel gas pattern Dictated By: Thai Ignacio MD Medications / Prescriptions Medications or Prescriptions considered but not ordered:: none Medication administrations:: Medication Administration History Discontinued Medications Sodium Chloride (Ns) 1,000 mls @ 999 mls/hr IV .Q1H1M ONE Stop: 02/06/25 14:45 Last Infusion: 02/06/25 15:17 Dose: Infused Documented By: Admin: 02/06/25 14:16 Dose: 999 mls/hr Documented By: ED Ketorolac Tromethamine (Ketorolac Inj 30 Mg/Ml Vial) 30 mg IM X1 ONE Stop: 02/06/25 11:16 Last Admin: 02/06/25 11:21 Dose: 30 mg Documented By: MF Morphine Sulfate (Morphine Sulf Inj 4 Mg/Ml Vial) 4 mg IVP X1 ONE Stop: 02/06/25 13:57 Last Admin: 02/06/25 14:24 Dose: 4 mg Documented By: ED Ondansetron HCl (Ondansetron Odt 4 Mg Tabrap) 4 mg PO X1 ONE; Protocol Stop: 02/06/25 11:16 Last Admin: 02/06/25 11:21 Dose: 4 mg Documented By: MF Ondansetron HCl (Ondansetron Inj 2 Mg/Ml Inj 2 Ml) 4 mg IVP X1 ONE; Protocol Stop: 02/06/25 13:46 Last Admin: 02/06/25 14:17 Dose: 4 mg Documented By: ED Oseltamivir Phosphate (Oseltamivir 75 Mg Capsule) 75 mg PO X1 ONE Stop: 02/06/25 15:12 Last Admin: 02/06/25 16:28 Dose: 75 mg Documented By: ED see above Consultations Consultation(s) initiated? (list below): No Diagnosis Differential diagnosis abdominal pain: abdominal pain, gastroenteritis and other (abscess, bowel injury, urinary tract injury, UTI, pyelonephritis) Most likely diagnosis given after review of the tests above:: Abdominal pain Influenza A Influenza B Admission Indicated Admission indicated?: not indicated Admission Request Was there a request for admission?: No Disposition Plan Disposition Plan: Discharge Discharge Attestation Discharge Attestation: The patient and all family members were given an opportunity to ask questions and understood the discharge instructions. Discharge instructions specifically effects, indications for sooner follow up or return to the emergency department, and the expected course of current diagnosis. Patient condition: Stable Discharge Plan Plan Patient Disposition: HOME (Self Care) Prescriptions/Referrals Prescriptions/Med Rec: New oseltamivir [Tamiflu] 75 mg capsule 75 mg PO BID 5 Days Qty: 10 0RF No Action amoxicillin-pot clavulanate 875-125 mg tablet 1 tab PO BID 14 Days Qty: 28 0RF hydrocodone-acetaminophen 5-325 mg tablet 1 tab PO Q6H PRN (Reason: pain) Patient Comments: TAKE 1 TABLET BY MOUTH EVERY 6 HOURS NEEDED FOR PAIN Referrals: Nat Cristobal SEWING INSPECTOR [Primary Care Provider] - In 1 week Problem List Clinical Impression: Abdominal pain, Influenza A, Influenza B Patient/Caregiver Discharge Instructions Education Materials: ED Abdominal Pain Unkn Cause Fem, ED Influenza (Adult) Print Language: [place]ese Stand Alone Forms: Dianna Award Info., Patient Portal Info Letter
[2025-02-06 14:06] VITALS: BP 155/94; PULSE 62; RESP 17; TEMP 37.2; O2SAT 100
[2025-02-06] MEDS: SODIUM CHLORIDE 0.9% 1000 ML 1,000 ML 999 ML IV (14:16)
[2025-02-06] MEDS: ONDANSETRON INJ 2 MG/ML INJ 2 ML 4 MG IVP (14:17)
[2025-02-06] MEDS: MORPHINE SULF INJ 4 MG/ML VIAL IVP (14:24)
[2025-02-06 14:38] LABS: Collection Type, Urine Clean Catch
[2025-02-06 15:29] LABS: Amphetamine/Methamp Scrn,U Negative (Negative); Barbiturate Screen,Urine Negative (Negative); Benzodiazepines Screen,Urine Negative (Negative); Benzoylecgonine Screen, Ur Negative (Negative); Fentanyl Screen,Urine Negative (Negative); Opiate Screen,Urine Negative (Negative); THC Screen,Urine Positive (Negative)
[2025-02-06 16:20] LABS: Bilirubin,Urine Negative (Negative); Blood,Urine Negative (Negative); Clarity,Urine Clear (Clear/Hazy); Color,Urine Yellow (Lt Yel-Yel); Glucose, Urine Negative (Negative); Ketones,Urine 2+ (Negative); Leukocyte Esterase,Urine Negative (Negative); Nitrite,Urine Negative (Negative); PH,Urine 8.5 (5.0-7.0); Protein,Urine 1+ (Neg - Trace); RBC,Urine 2 /hpf (0-3); Specific Gravity,Urine 1.034 (1.001-1.035); Squamous Epithelial Cell,Urine 4 /hpf (0-5); Urobilinogen,Urine Negative mg/dL (0.0-1.0); WBC,Urine 2 /hpf (0-5)
[2025-02-06] MEDS: OSELTAMIVIR 75 MG CAPSULE PO (16:28)
[2025-02-06 16:49] VITALS: BP 141/91; PULSE 66; RESP 16; TEMP 36.9; O2SAT 100
[2025-02-06] MEDS: ACETAMINOPHEN 500 MG TABLET 1000 MG PO (17:18)
== END 2025-02-06 17:35 | disposition home or self-care (01) ==
PROVIDERS: Physician Assistant; Emergency Provider Emergency Medicine; PCP Nurse Practitioner Family
DX: J11.1 Influenza due to unidentified influenza virus with other respiratory manifestations (principal)
CPT/HCPCS: 36415; 74022; 80053; 80307; 81001; 82803; 83605; 84145; 85025; 87040; 87086; 87400; 87811; 96361; 96372; 96374; 96375; 99283; J1885; J2270; J2405; J7030; Q0162; A9270

== ENCOUNTER 2025-02-10 10:09 | Outpatient (AMB) | payer MEDICAID, SELFPAY ==
[2025-02-10 10:43] VITALS: BP 117/75; PULSE 83; RESP 16; TEMP 36.2; O2SAT 98; BMI 18.3
--- NOTE | 2025-02-10 10:43 | AMB.GYNCLNOT ---
Vital Signs 02/10/25 10:43 Height 1.65 m Height Method Stated Weight 49.895 kg Weight Measurement Method Standing Scale BMI 18.3 BP 117/75 Blood Pressure Source Automatic Cuff Blood Pressure Location Left Upper Arm Position Sitting Respiration 16 Pulse 83 Pulse Source Monitor Temp 97.2 F Temp Source Oral Pulse Oximetry (%) 98 Oxygen Delivery Method Room Air Allergies/Home Meds Allergies & Medications Allergies codeine Allergy (Verified 02/10/25 10:44) Rash Medication Reconciliation hydrocodone 5 mg-acetaminophen 325 mg tablet 1 tab PO Q6H PRN pain 01/08/25 [History Confirmed 02/11/25] tramadol 50 mg tablet 100 mg PO Q8H PRN pain 02/11/25 [History Confirmed 02/11/25] bisacodyl 5 mg tablet,delayed release (Laxative (bisacodyl)) 5 mg PO QDAY 15 days #15 tabs 02/13/25 [Rx] clindamycin HCl 300 mg capsule 300 mg PO TID 7 days #21 caps 02/13/25 [Rx] estradiol 0.01% (0.1 mg/gram) vaginal cream 1 applic .Route .qhs 30 days #42.5 grams 02/13/25 [Rx] ibuprofen 600 mg tablet 600 mg PO Q6H PRN fever or pain 10 days #40 tabs 02/13/25 [Rx] psyllium husk 3.4 gram/5.4 gram oral powder (Metamucil) 1 tbsp PO QDAY 30 days #660 grams 02/13/25 [Rx] Intake Visit Data Collection New Patient or Established: Established Patient (seen at [facility] within 3 years) Reason for Visit:: OBC Seen by Clinical Staff ONLY (RN/MA): No Pin Cleaner Required: No Do You Feel Safe at Home: Yes Authorities Contacted: N/A PCP or OBGYN visit in last 3 months: Yes Date of Last PCP or OBGYN visit: 02/06/25 Hx Now: No Are you currently on any form of Control: No Pain Present Currently: No Pain Scale Used: Gates-Villalpando/Numerical Pain scale:: 0 Smoking Status Smoking Status: Never smoker 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 Menstrual regularity: regular Flow: normal Monthly: Yes Menopausal: No Currently 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 1. Little interest or pleasure in doing things: not at all 2. Feeling down, depressed, or hopeless: not at all Total score: 0 PHQ-9 3. Trouble falling or staying asleep, or sleeping too much: Not at all 4. Feeling tired or having little energy: Not at all 5. Poor appetite or overeating: Not at all 6. Feeling bad about yourself - or that you are a failure or have let yourself or your family down: Not at all 7. Trouble concentrating on things, such as reading the newspaper or watching television: Not at all 8. Moving or speaking so slowly that other people could have noticed? - Or the opposite - being so fidgety or restless that you have been moving around a lot more than usual: not at all 9. Thoughts that you would be better off or of hurting yourself in some way: Not at all Total score: 0 If you checked off any problems, how difficult have these problems made it for you to do your work, take care of things at home, or get along with other people?: not difficult at all Source: Developed by Drs. Mack Bowers, Sahra Sarmiento, Shon Rojas and colleagues, with an educational anabella from [employer]. Depression screen completed yes Social History Living Situation History Lives With: Significant Other Housing: House Tobacco History Smoking Status: Never smoker Second Hand Smoke Exposure: Yes Alcohol History Alcohol Intake: Never Alcohol Intake Frequency: holidays/special occasions only Substance Use History Substance Use: last THC use 11/25/2019 Domestic Abuse History Do You Feel Safe at Home: Yes History of Present Illness HPI Narrative Monserrat Simpson presents for a one-month follow-up status post total laparoscopic hysterectomy performed on January 11, 2025. The patient was admitted for postoperative peritonitis two weeks after her surgery, which subsequently resolved after 24 hours of Zosyn and pyogamentin treatment for 7 days. The patient reports that she has completed one month of recovery since her surgery. No specific complaints or symptoms are mentioned during this follow-up visit. The clinician indicates that the patient is cleared for all activities without restrictions, including exercise and sexual activity. The patient is advised that she might experience some spotting during her first sexual intercourse due to stretching of the surgical site, which is described as normal and not a cause for concern. The patient has been taking Zosyn and pyogamentin for 7 days for postoperative peritonitis. She is cleared for sexual activity. ROS: Genitourinary: Negative for spotting. Exam General General Appearance: alert, in no apparent distress and healthy appearing Head Head exam: atraumatic Neck Neck exam: Present normal inspection and trachea midline Chest Chest inspection: Present normal inspection and symmetric chest wall rise External exam: Present normal external exam; Absent tenderness Neuro Neurological exam: Present oriented X3 Psych Psychiatric exam: Present normal affect and normal mood Office Procedures OB Clinic LOC & Office Proc's Nursing/Assessment Patient Status: Established Patient OB Clinic Nursing Assessment: Medication Reconciliation, Update PMH in EMR and Vital Signs OB Clinic Coordination of Care: Education Complex Pt/Fam, Consent,records obtained, informed consent, Lab and Imaging orders, Results/Orders obtained and Staff clarify orders Established Patient Charge Established Patient Point Assignment: 85 Established Patient Point Charge: EP Level 3 (80-115) Assessment & Plan Diagnosis / Problem List (1) Encounter for surgical aftercare following surgery on the genitourinary system: Status: Acute Plan Status post total laparoscopic hysterectomy: - One month status post total laparoscopic hysterectomy performed on January 11, 2025. - Postoperative peritonitis occurred 2 weeks after surgery, resolved after 24 hours of Zosyn and Augmentin for 7 days. - Currently recovering well with no reported complications or concerns. Plan: - Clear patient for unrestricted activities, including exercise and sexual activity. - Educate patient about possible spotting during first intercourse due to stretching of the surgical site. - No scheduled follow-up appointments necessary. - Instruct patient to return if any concerns arise.
== END 2025-02-10 11:03 | disposition home or self-care (01) ==
LOC: HODSOBC 10:09
PROVIDERS: Supervising Provider Obstetrics & Gynecology; Visit Provider Obstetrics & Gynecology
DX: Z48.816 Encounter for surgical aftercare following surgery on the genitourinary system (principal); Z90.710 Acquired absence of both cervix and uterus; Z88.5 Allergy status to narcotic agent
CPT/HCPCS: 99213; G0463

== ENCOUNTER 2025-02-11 07:42 | Observation (INO) | payer MEDICAID, SELFPAY ==
[2025-02-11] VITALS (10 sets, daily range): BP systolic 96–117; BP diastolic 53–74; PULSE 78–104; RESP 15–20; TEMP 36.3–36.9; O2SAT 98–100; BMI 18.3
--- NOTE | 2025-02-11 07:53 | EKG_ITS ---
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
--- NOTE | 2025-02-11 07:54 | XR_ITS ---
Examination: CT abdomen with intravenous contrast CT pelvis with intravenous contrast 2-D coronal reconstructions 2-D sagittal reconstructions Date and time of exam:February 11, 2025 1002 hours INDICATIONS: Pelvic pain after intercourse beginning yesterday, CT pelvis January 23, 2025 extensive inflammatory change in the pelvis. CTDI: vol (mGy) 4.64 DLP: (mGycm) 238 while Technique: Multiple axial sections of the abdomen and pelvis have been obtained. 64 slice high-resolution scanner used. 3 mm axial sections have been obtained, post intravenous injection 60 cc [id number] 2-D sagittal, coronal reconstructions obtained. Low dose protocols were performed. One or more of the following dose reduction techniques were used; automated exposure control, adjustment of the mA and/or KV according to patient size, use of iterative reconstruction technique. Findings: Pneumoperitoneum Pneumobilia Air in the gallbladder Mild free fluid in the abdomen and pelvis Absent appendix No hydronephrosis Spleen is not enlarged Aorta normal size Pronounced inflammatory change/peritonitis in the pelvis Absent uterus No organized pelvic abscess Large amount stool in the rectum Intact urinary bladder Intact osseous structures IMPRESSION: Extensive pneumoperitoneum, unclear etiology Pneumobilia Pronounced peritonitis inflammatory change in the pelvis, no pelvic abscess
--- NOTE | 2025-02-11 07:55 | XR_ITS ---
Examination: AP chest single view Technique one AP portable upright chest single view Date and time: February 11, 2025 0809 hrs., Comparison 02/06/2025 Indications: Chest pain shortness of breath today. Findings: Normal heart size Lungs are clear. The osseous structures are intact There appears to be free air beneath right hemidiaphragm, clinical correlation advised Impression: There appears to be free air beneath right hemidiaphragm, recommend CT scan abdomen pelvis post intravenous contrast follow-up
--- NOTE | 2025-02-11 07:56 | PD.EDRME ---
Rapid Medical Screening Exam E Arrival date/time: 02/11/25 07:42 29-year-old female history of endometriosis requiring surgery with complications after surgery presents with concerns for abdominal pain chest pain shortness of breath after having intercourse last night Chief Complaint: Abdominal Pain Vital signs: Vital Signs Temperature 97.8 F 02/11/25 07:51 Pulse Rate 104 H 02/11/25 07:51 Respiratory Rate 19 02/11/25 07:51 Blood Pressure 111/74 02/11/25 07:51 Pulse Oximetry (%) 100 02/11/25 07:51 Oxygen Delivery Method Room Air 02/11/25 07:51
--- NOTE | 2025-02-11 08:37 | PC.NURSE ---
Pt comes in from home. States that she had surgery for endometriosis and uterine prolapse on 01/10/2025, and was given the ok to have intercourse when she felt ready. After having intercourse last night, pt states that she started bleeding like a heavy period and extreme pain/cramping.. the bleeding has since lightened up but the pain has not. Pt also states that she is unable to urinate or have bowl movements since this pain started cause she can not stand to bare down at all. Pt is in a lot of pain but otherwise stable. informed of pt's pain, I am awaiting further orders and we are waiting for lab results so that pt can have further testing. Pt on monitors, call light in reach
[2025-02-11 08:44] LABS: Basophils # (Auto) 0.0 Thou/mm3 (0.0-0.2); Basophils % (Auto) 0 % (0-2.5); Eosinophils # (Auto) 0.0 Thou/mm3 (0.0-0.5); Eosinophils % (Auto) 0 % (0-10); Hematocrit 33.5 % (36.0-46.0); Hemoglobin 11.1 g/dL (12.0-16.0); Immature Granulocytes Auto 0.17 Thou/mm3 (0.00-0.00); Lymphocytes # (Auto) 1.1 Thou/mm3 (1.0-4.8); Lymphocytes % (Auto) 4 % (10-50); Mean Corpuscular HGB Conc 33.1 g/dl (31.0-37.0); Mean Corpuscular Hemoglobin 28.8 pg (25.0-35.0); Mean Corpuscular Volume 87 fL (80-100); Monocytes # (Auto) 0.6 Thou/mm3 (0.0-0.8); Monocytes % (Auto) 2 % (0-12); Neutrophils # (Auto) 23.2 Thou/mm3 (1.8-7.7); Neutrophils % (Auto) 93 % (37-80); Nucleated Red Blood Cell # 0.00 Thou/mm3 (0.00-0.00); Nucleated Red Blood Cell % 0 /100 WBC (0); Platelet Count 467 Thou/mm3 (140-440); RDW Standard Deviation 41.3 fL (36.4-46.3); Red Blood Count 3.86 Miln/mm3 (4.00-5.20); White Blood Count 25.0 Thou/mm3 (3.6-11.0)
[2025-02-11 09:09] LABS: Alanine Aminotransferase 10 U/L (10-49); Albumin, Serum 4.2 gm/dL (3.5-5.0); Albumin/Globulin Ratio 1.8 (1.2-2.2); Alkaline Phosphatase 57 U/L (46-116); Anion Gap 11 (7-16); Aspartate Amino Transferase 14 U/L (0-34); BUN/Creatinine Ratio 13 Ratio (12-20); Bilirubin,Total 0.3 mg/dL (0.3-1.2); Blood Urea Nitrogen 8 mg/dL (9-23); Calcium 9.3 mg/dL (8.3-10.6); Calcium (Corrected) 9.3 mg/dL (8.5-10.1); Carbon Dioxide 26.6 mMol/L (20.0-31.0); Chloride 101 mMol/L (98-107); Creatinine (Component) 0.6 mg/dL (0.6-1.3); Estimated Creatinine Clearance 110.9 mL/min (>60); Globulin 2.4 gm/dL (2.3-3.5); Glucose 120 mg/dL (74-106); Osmolality,Calculated 276 (275-295); Potassium 3.7 mMol/L (3.4-5.1); Sodium 139 mMol/L (136-145); Total Protein 6.6 gm/dL (5.7-8.2); Troponin I < 0.002 ng/mL (0.0-0.045); eGFR > 60 See Note
[2025-02-11] MEDS: MORPHINE SULF INJ 4 MG/ML VIAL IVP (09:28)
[2025-02-11] MEDS: ONDANSETRON INJ 2 MG/ML INJ 2 ML 4 MG IVP ×2 (09:28→11:43)
[2025-02-11 09:34] LABS: Lactate (Lactic Acid) 0.9 mMol/L (0.4-2.0)
[2025-02-11 09:59] LABS: Amylase 50 U/L (30-118)
[2025-02-11 11:04] LABS: Bilirubin,Urine Negative (Negative); Blood,Urine Negative (Negative); Clarity,Urine Clear (Clear/Hazy); Collection Type, Urine Clean Catch; Color,Urine Lt-Yellow (Lt Yel-Yel); Culture Indicated,Urine Not Indicated; Glucose, Urine Negative (Negative); Ketones,Urine Negative (Negative); Leukocyte Esterase,Urine Positive (Negative); Nitrite,Urine Negative (Negative); PH,Urine 7.0 (5.0-7.0); Protein,Urine Trace (Neg - Trace); RBC,Urine 12 /hpf (0-3); Squamous Epithelial Cell,Urine 5 /hpf (0-5); Urobilinogen,Urine Negative mg/dL (0.0-1.0); WBC,Urine 10 /hpf (0-5)
[2025-02-11 11:07] LABS: Specific Gravity,Urine 1.020 (1.001-1.035)
[2025-02-11 11:12] LABS: Amphetamine/Methamp Scrn,U Negative (Negative); Barbiturate Screen,Urine Negative (Negative); Benzodiazepines Screen,Urine Negative (Negative); Benzoylecgonine Screen, Ur Negative (Negative); Fentanyl Screen,Urine Negative (Negative); Opiate Screen,Urine Positive (Negative); THC Screen,Urine Positive (Negative)
[2025-02-11] MEDS: PIPER/TAZO 3.375 GM PREMIX 3.375 GM/50 ML BAG IV ×3 (11:43→23:43)
[2025-02-11] MEDS: HYDROmorphone INJ 2 MG/ML VIAL 1 MG IVP ×2 (11:44→20:15)
--- NOTE | 2025-02-11 11:51 | PD.EDABDPN ---
ED Abdominal Pain RME/HPI General Chief Complaint: Abdominal Pain Stated complaint: ABD/CHEST PAIN, VAG BLEEDING, DIFFICULTY BREATHING Time seen by provider: 02/11/25 08:41 Arrival date/time: 02/11/25 07:42 Limitations: no limitations RME / HPI RME / HPI narrative: 02/11/25 07:42 29-year-old female history of endometriosis requiring surgery with complications after surgery presents with concerns for abdominal pain chest pain shortness of breath after having intercourse last night DR. SCOTT MAIN ED EVALUATION: 29 year old female who is s/p total laparoscopic hysterectomy bilateral partial salpingectomy performed 01/11/[address] Vega presents to the ED for evaluation of abdominal and chest pain beginning after intercourse last night. Described as aching in sensation and rating as severe with no known modifying factors. Patient states she had been told it was okay for her to have intercourse. Denies fevers, chills, sweats, vomiting, diarrhea, constipation, or urinary symptoms. Related Data Home Medications ?Medication ?Instructions ?Recorded ?Confirmed hydrocodone 5 mg-acetaminophen 325 1 tab PO Q6H PRN pain 01/08/25 02/10/25 mg tablet Allergies Allergy/AdvReac Type Severity Reaction Status Date / Time codeine Allergy Rash Verified 02/10/25 10:44 Review of Systems Review of Systems Systems Reviewed: All systems reviewed, normal except as documented Past Medical History Past Medical History RESPIRATORY: Positive Asthma GASTROINTESTINAL: Positive Gastrointestinal Disorders and Gastroesophageal Reflux Disease REPRODUCTIVE: Positive Endometriosis, Previous Pregnancies and Uterine Prolapse HEMATOLOGIC: Positive Anemia PSYCHO/SOCIAL: Positive Recreational Drug Use, Depression and Anxiety OTHER HISTORY: Positive Hospitalization Family History FAMILY HISTORY: Positive Family Cardiac Disorders and Family Surgery Surgical History SURGICAL: Positive Abdominal Surgery, Hysterectomy and Tubal Ligation; Negative Section Social History SMOKING STATUS: Never smoker SECOND HAND EXPOSURE: Yes SUBSTANCE USE: marijuana (Occasional) ED Exam General Limitations: Present no limitations General appearance: Present alert, anxious and other (appears to be in pain ) Head Head exam: Present atraumatic Eye Eye exam: Present normal appearance, PERRL and EOMI ENT ENT exam: Present normal exam, normal oropharynx and mucous membranes moist Neck Neck exam: Present normal inspection, full ROM and trachea midline Chest Chest inspection: Present normal inspection and symmetric chest wall rise Respiratory Respiratory exam: Present normal lung sounds bilaterally Cardiovascular Cardiovascular exam: Present tachycardia and normal heart sounds Abdominal Exam Abdominal exam: Present soft, tenderness (diffuse tenderness, no focal tenderness ) and normal bowel sounds; Absent distention, guarding, rebound or rigidity Extremities Exam Extremities exam: Present normal inspection and full ROM Back Exam Back exam: Present normal inspection and full ROM Neurological Exam Neurological exam: Present alert, oriented X3 and CN II-XII intact Psychiatric Psychiatric exam: Present normal affect and normal mood Skin Skin exam: Present warm, dry, intact and normal color Course Quality Measures none Orders Category Date Time Status CT Screening NOW Care 02/11/25 07:55 Active Project Management Manager NOW Care 02/11/25 08:49 Active Continuous Pulse Oximetry NOW Care 02/11/25 08:49 Active EKG (ED ONLY) *Do not use* NOW Care 02/11/25 07:53 Completed Insert IV NOW Care 02/11/25 07:[address] abdomen pelvis w con Stat Exams 02/11/25 07:54 Completed EKG (ED Only) Stat Exams 02/11/25 07:53 Draft XR chest 1V portable Stat Exams 02/11/25 07:55 Completed Amylase Stat Lab 02/11/25 08:30 Completed Blood Culture (Lab) Stat Lab 02/11/25 09:25 Received CBC Stat Lab 02/11/25 08:30 Completed Comprehensive Metabolic Panel Stat Lab 02/11/25 08:30 Completed Drug Screen,Urine Stat Lab 02/11/25 10:50 Completed HCG Qualitative,Urine Routine Lab 02/11/25 10:50 Completed Lactic Acid [Lactate (Lactic Acid)] Stat Lab 02/11/25 09:25 Completed Troponin I Stat Lab 02/11/25 08:30 Completed Urinalysis, C/S if Indicated Stat Lab 02/11/25 10:20 Completed HYDROmorphone INJ [Dilaudid Inj] Med 02/11/25 11:32 Discontinued 1 mg IVP X1 ONE Morphine* Inj Med 02/11/25 09:06 Discontinued 4 mg IVP X1 ONE Ondansetron Inj [Zofran Inj] Med 02/11/25 09:06 Discontinued 4 mg IVP X1 ONE Ondansetron Inj [Zofran Inj] Med 02/11/25 11:32 Discontinued 4 mg IVP X1 ONE Piper/Tazo 3.375 gm Premix [Zosyn] Med 02/11/25 11:34 Discontinued 3.375 gm in 50 ml IV X1 Vital Signs Vital signs: Vital Signs Temperature 97.8 F 02/11/25 07:51 Pulse Rate 104 H 02/11/25 07:51 Respiratory Rate 19 02/11/25 07:51 Blood Pressure 111/74 02/11/25 07:51 Pulse Oximetry (%) 100 02/11/25 07:51 Oxygen Delivery Method Room Air 02/11/25 07:51 Pulse ox is 100% on room air which is adequate. Abdominal Pain MDM MDM Narrative MDM Narrative:: Nikia Khan am scribing for and in the presence of Dr. Scott. Patient data External records reviewed:: [facility] previous records (I reviewed ED visit on 02/06/2025 ) Clinical information provided by:: patient Social determinants that could affect healthcare access:: none Patient has the following chronic illnesses:: s/p total laparoscopic hysterectomy bilateral partial salpingectomy performed 01/11/[address] Vega How is presenting disease/condition affected by chronic disease/condition?: exacerbated by Evaluation data The following diagnostics were reviewed and interpreted by me:: lab results, radiology exam(s) and EKG tracing(s) (EKG @ 0754AM. Sinus tachycardia, rate 109, nonspecific T-wave abnormality, no STEMI ) Lab and/or radiology exams considered but not ordered:: None Interpretation Summary: Ordering Physician: Davion Scott MD Date of Service: 02/11/25 Procedure(s): CT abdomen pelvis w con Accession Number(s): [id number] cc: Davion Scott MD; Thai Ignacio MD; NO PRIMARY/FAMILY,PHYSICIAN~ Examination: CT abdomen with intravenous contrast CT pelvis with intravenous contrast 2-D coronal reconstructions 2-D sagittal reconstructions Date and time of exam:February 11, 2025 1002 hours INDICATIONS: Pelvic pain after intercourse beginning yesterday, CT pelvis January 23, 2025 extensive inflammatory change in the pelvis. CTDI: vol (mGy) 4.64 DLP: (mGycm) 238 while Technique: Multiple axial sections of the abdomen and pelvis have been obtained. 64 slice high-resolution scanner used. 3 mm axial sections have been obtained, post intravenous injection 60 cc [id number] 2-D sagittal, coronal reconstructions obtained. Low dose protocols were performed. One or more of the following dose reduction techniques were used; automated exposure control, adjustment of the mA and/or KV according to patient size, use of iterative reconstruction technique. Findings: Pneumoperitoneum Pneumobilia Air in the gallbladder Mild free fluid in the abdomen and pelvis Absent appendix No hydronephrosis Spleen is not enlarged Aorta normal size Pronounced inflammatory change/peritonitis in the pelvis Absent uterus No organized pelvic abscess Large amount stool in the rectum Intact urinary bladder Intact osseous structures IMPRESSION: Extensive pneumoperitoneum, unclear etiology Pneumobilia Pronounced peritonitis inflammatory change in the pelvis, no pelvic abscess Dictated By: Thai Ignacio MD Signed By: <Electronically signed by Thai Ignacio MD in OV> 02/11/25 1112 Ordering Physician: Danii RICKS)Jesu NP Date of Service: 02/11/25 Procedure(s): XR chest 1V portable Accession Number(s): [id number] cc: Danii RICKS),Jesu VELASQUEZ; Thai Ignacio MD~ Examination: AP chest single view Technique one AP portable upright chest single view Date and time: February 11, 2025 0809 hrs., Comparison 02/06/2025 Indications: Chest pain shortness of breath today. Findings: Normal heart size Lungs are clear. The osseous structures are intact There appears to be free air beneath right hemidiaphragm, clinical correlation advised Impression: There appears to be free air beneath right hemidiaphragm, recommend CT scan abdomen pelvis post intravenous contrast follow-up Dictated By: Thai Ignacio MD Signed By: <Electronically signed by Thai Ignacio MD in OV> 02/11/25 0818 Medications / Prescriptions Medications or Prescriptions considered but not ordered:: None Medication administrations:: Medication Administration History Piperacillin/Tazobactam/Dextrose (Zosyn) 3.375 gm in 50 mls @ 100 mls/hr IV Q6HR [facility]; Protocol Stop: 02/18/25 12:32 Lactulose (Lactulose Syrup 20 Gm/30 Ml Udc) 20 gm PO TID [facility]; Protocol Stop: 03/13/25 13:59 Discontinued Medications Dexamethasone Sodium Phosphate (Dexamethasone Sod Phos Inj 10 Mg/Ml Vial) Confirm Administered Dose 10 mg .ROUTE .STK-MED ONE Stop: 02/11/25 13:27 Fentanyl Citrate (Fentanyl Cit Inj 50 Mcg/Ml Amp 2ml) Confirm Administered Dose 100 mcg .ROUTE .STK-MED ONE Stop: 02/11/25 13:21 Hydromorphone HCl (Hydromorphone Inj 2 Mg/Ml Vial) 1 mg IVP X1 ONE Stop: 02/11/25 11:33 Last Admin: 02/11/25 11:44 Dose: 1 mg Documented By: CS Piperacillin/Tazobactam/Dextrose (Zosyn) 3.375 gm in 50 mls @ 100 mls/hr IV X1 ONE; Protocol Stop: 02/11/25 12:03 Last Infusion: 02/11/25 12:13 Dose: Infused Documented By: Admin: 02/11/25 11:43 Dose: 100 mls/hr Documented By: CS Ketorolac Tromethamine (Ketorolac Inj 30 Mg/Ml Vial) Confirm Administered Dose 30 mg .ROUTE .STK-MED ONE Stop: 02/11/25 13:27 Morphine Sulfate (Morphine Sulf Inj 4 Mg/Ml Vial) 4 mg IVP X1 ONE Stop: 02/11/25 09:07 Last Admin: 02/11/25 09:28 Dose: 4 mg Documented By: CS Ondansetron HCl (Ondansetron Inj 2 Mg/Ml Inj 2 Ml) 4 mg IVP X1 ONE; Protocol Stop: 02/11/25 09:07 Last Admin: 02/11/25 09:28 Dose: 4 mg Documented By: CS Ondansetron HCl (Ondansetron Inj 2 Mg/Ml Inj 2 Ml) 4 mg IVP X1 ONE; Protocol Stop: 02/11/25 11:33 Last Admin: 02/11/25 11:43 Dose: 4 mg Documented By: CS Ondansetron HCl (Ondansetron Inj 2 Mg/Ml Inj 2 Ml) Confirm Administered Dose 4 mg .ROUTE .STK-MED ONE Stop: 02/11/25 13:27 Propofol (Propofol Inj 10 Mg/Ml Vial 20 Ml) Confirm Administered Dose 200 mg IV .STK-MED ONE Stop: 02/11/25 13:21 See above Consultations Consultation(s) initiated? (list below): Yes Consultation #1 (Physician, Specialty, Details): I spoke with OBGYN on-call Dr. Moreland. Discussed patients PMHx, HPI, ED course, exam findings, labs, and radiology results. States she will perform a pelvic exam. Time: 11:40 Consultation #2 (Physician, Specialty, Details): Patient has been evaluated by both Dr. Moreland and Dr. Vega (who performed the surgery) and will be taking the patient to surgery. Diagnosis Differential diagnosis abdominal pain: abdominal pain and other (surgical complications, pneumoperitoneum ) Most likely diagnosis given after review of the tests above:: Peritonitis Vaginal trauma post hysterectomy Admission Indicated Admission indicated?: indicated Admission Request Was there a request for admission?: Yes Admission Attestation Admission request attestation: Discussed case with [] from Hospitalist service regarding admission. Discussed patients ED course, exam findings, labs, and radiology results. The Hospitalist [agrees,declines] to accept the patient for admission. Disposition Plan Disposition Plan: Admit Discharge Plan Plan Patient Disposition: Other Care w/in Hosp (SDC/DEBI) Problem List Clinical Impression: Peritonitis, Vaginal trauma, History of hysterectomy
--- NOTE | 2025-02-11 12:35 | PD.GYNHP ---
Documentation for date of: 02/11/25 AMMUNITION ASSEMBLY LABORER - HPI History of Present Illness History of present illness: Ms. LAZAR is a 29 year old female who is 4 weeks status post total laparoscopic hysterectomy. Patient presents to the ER as of early this morning with bleeding and pain at her vaginal cuff after initiating sexual intercourse for the first time since her surgery. Patient also reported sharp abdominal pain and shortness of breath. On evaluation on CT scan she is noted to have pneumoperitoneum and physical exam is consistent with separation of the vaginal cuff the peritoneum appears to be intact. Meds Home Medications and Allergies Home Medications ?Medication ?Instructions ?Recorded ?Confirmed ?Type hydrocodone 5 mg-acetaminophen 325 1 tab PO Q6H PRN pain 01/08/25 02/10/25 History mg tablet Allergies Allergy/AdvReac Type Severity Reaction Status Date / Time codeine Allergy Rash Verified 02/10/25 10:44 Exam - AMMUNITION ASSEMBLY LABORER Vital Signs Temp Pulse Resp BP Pulse Ox O2 Del Method 97.8 F 104 H 19 111/74 100 Room Air 02/11/25 07:51 02/11/25 07:51 02/11/25 07:51 02/11/25 07:51 02/11/25 07:51 02/11/25 07:51 Narrative Exam Sterile speculum exam performed in the bed, noted separation of the vaginal cuff with loose Vicryl stitch materials No prolapse of intraperitoneal structures. AMMUNITION ASSEMBLY LABORER - Results Labs 02/11/25 08:30 02/11/25 08:30 Labs: Short CBC 02/11/25 Range/Units 08:30 WBC 25.0 H D (3.6-11.0) Thou/mm3 Hgb 11.1 L (12.0-16.0) g/dL Hct 33.5 L (36.0-46.0) % Plt Count 467 H D (140-440) Thou/mm3 BMP 02/11/25 08:30 Sodium 139 Potassium 3.7 Chloride 101 Carbon Dioxide 26.6 BUN 8 L Creatinine 0.6 Glucose 120 H Calcium 9.3 Cardiac Enzymes 02/11/25 Range/Units 08:30 Troponin I < 0.002 (0.0-0.045) ng/mL Liver Function 02/11/25 Range/Units 08:30 Total Bilirubin 0.3 (0.3-1.2) mg/dL AST 14 (0-34) U/L ALT 10 (10-49) U/L Alkaline Phosphatase 57 (46-116) U/L Albumin 4.2 (3.5-5.0) gm/dL Urine 02/11/25 Range/Units 10:20 Urine Color Lt-Yellow (Lt Yel-Yel) Urine Clarity Clear (Clear/Hazy) Urine pH 7.0 (5.0-7.0) Ur Specific [place] 1.020 (1.001-1.035) Urine Protein Trace (Neg - Trace) Urine Glucose (UA) Negative (Negative) Assessment and Plan Assessment and plan (1) Vaginal cuff dehiscence: Status: Acute Assessment and plan: 29-year-old with dehiscence of vaginal cuff 1 month after total laparoscopic hysterectomy Admit to observation for return to the OR and repair of vaginal cuff N.p.o. status Continue Zosyn Patient added on for the add-on surgical schedule Quality Measures Quality Measures VTE prophylaxis
[2025-02-11 12:45] LABS: HCG Qualitative,Urine Negative
--- NOTE | 2025-02-11 14:14 | SUR.PHASEI ---
1414: Pt. wakes to name then drifts back to sleep vitals stable, breathing unlabored, no complaint of pain or nausea, no dressing in place, no active bleed noted, report received from Scott FRANCIS and Felicita RENNER.
[2025-02-11] MEDS: HYDROmorphone INJ 2 MG/ML VIAL 0.4 MG IVP (15:00)
[2025-02-11] MEDS: fentaNYL CIT INJ 50 mCg/ML AMP 2ML 25 MCG IVP (15:08)
--- NOTE | 2025-02-11 15:20 | SUR.PHASEII ---
1520: Pt. AAOx4, vitals stable, breathing unlabored, no complaint of pain or nausea, no dressing in place, no active bleed noted, pt. tolerated a sip of water well, gave report to Austen RENNER prior to transfer to room 373. Family made aware of transfer to room. Pt. transferred with all personal belongings.
[2025-02-11] MEDS: LACTULOSE SYRUP 20 GM/30 ML UDC PO ×2 (15:53→21:08)
--- NOTE | 2025-02-11 16:36 | ESOP_ITS ---
Operative Note - SUPERVISOR QUALITY CONTROL Procedure Date of procedure: 02/11/25 Procedure Performed: Exam under anesthesia and revision of vaginal cuff repair Indication: Dehiscence of vaginal cuff 1 month status post total laparoscopic hysterectomy Anesthesia type: General Procedure description: The patient was taken to the operating room and placed under general anesthesia with LMA. After proper positioning and sterile preparation, a vaginal examination was performed. Vaginal cuff dehiscence was noted with intact peritoneum. The edges of the vaginal cuff were grasped using a series of Allis clamps. Retraction was achieved with Contreras retractors. The vaginal cuff was then closed using 0 Vicryl suture in a running fashion. The closure was probed with a blunt instrument to confirm integrity of the repair. Adequate hemostasis was ensured. Estimated blood loss was approximately 5 mL. No complications were encountered during the procedure. Estimated blood loss (ml): 5 Findings: Vaginal cuff dehiscence identified Peritoneum intact No intraabdominal contents or structures prolapsing through the defect Surgical staff Operation Date: 02/11/25 15:15 Case Staff CLAM SHUCKING MACHINE TENDER: Romero Quinones Diagnosis Discharge Diagnosis (1) History of hysterectomy: Status: Acute (2) Vaginal cuff dehiscence: Status: Acute Problem List Completed Was Problem List Reviewed/Reconciled?: Yes
[2025-02-11] MEDS: HYDROcodone/APAP 5/325 TABLET 2 TAB PO (16:44)
[2025-02-11] MEDS: KETOROLAC INJ 30 MG/ML VIAL IVP ×2 (17:41→23:43)
[2025-02-12] VITALS: BP 95/51; PULSE 64; RESP 14; TEMP 36.2; O2SAT 97
[2025-02-12] MEDS: HYDROcodone/APAP 5/325 TABLET 2 TAB PO (03:59)
[2025-02-12 04:00] VITALS: BP 107/74; PULSE 61; RESP 18; TEMP 36.6; O2SAT 100
[2025-02-12] MEDS: KETOROLAC INJ 30 MG/ML VIAL IVP (05:06)
[2025-02-12] MEDS: LACTULOSE SYRUP 20 GM/30 ML UDC PO (05:06)
[2025-02-12] MEDS: PIPER/TAZO 3.375 GM PREMIX 3.375 GM/50 ML BAG IV ×4 (05:06→23:48)
[2025-02-12] MEDS: ACETAMINOPHEN 500 MG TABLET PO (07:21)
[2025-02-12] MEDS: HYDROMORPHONE HCL 2 MG TABLET PO (07:21)
[2025-02-12 07:45] VITALS: BP 142/91; PULSE 99; RESP 16; TEMP 36.4; O2SAT 100
[2025-02-12] MEDS: METOCLOPRAMIDE INJ 5 MG/ML VIAL 2 ML 10 MG IVP ×3 (08:19→22:24)
--- NOTE | 2025-02-12 08:37 | ESPR_ITS ---
Documentation for date of: 02/12/25 TANKAGE SUPERVISOR Subjective Subjective Interval history: Patient evaluated at bedside. Continues to be nauseous and is complaining of generalized abdominal pain. 1 episode of emesis. Reports passing flatus. Exam Vital Signs Temp Pulse Resp BP Pulse Ox O2 Del Method O2 Flow Rate 97.5 F 99 16 142/91 H 100 Room Air 2 02/12/25 07:45 02/12/25 07:45 02/12/25 07:45 02/12/25 07:45 02/12/25 07:45 02/12/25 07:45 02/11/25 14:29 Constitutional Constitutional: no acute distress Routine HEENT Exam Head: Present normocephalic and atraumatic Eye: Present EOMI and PERRL ENT: Present mucous membranes moist Routine Neck Exam Neck: Present supple and trachea midline Routine Respiratory Exam Respiratory: Present chest non-tender, lungs clear, normal breath sounds and no resp distress Routine Cardiovascular Exam Cardiovascular: Present RRR Routine Abdominal Exam Abdominal: Present soft and normoactive bowel sounds Routine Extremities Exam Extremities: Present full ROM Routine Skin Exam Skin: Present intact and dry Routine Neurological Exam Neurological: Present alert, oriented X3 and CN II-XII intact Routine Psychiatric Exam Psychiatric: Present normal affect and normal thought process Urinary Catheter Management Cath placed during this visit: no TANKAGE SUPERVISOR - PN: Obj Data Labs 02/11/25 08:30 02/11/25 08:30 Labs: Laboratory Results - last 24 hr 02/11/25 02/11/25 02/11/25 08:30 09:25 10:20 WBC 25.0 H D RBC 3.86 L Hgb 11.1 L Hct 33.5 L MCV 87 MCH 28.8 MCHC 33.1 RDW Std Deviation 41.3 Plt Count 467 H D Neut % (Auto) 93 H Lymph % (Auto) 4 L [place] % (Auto) 2 Eos % (Auto) 0 Baso % (Auto) 0 Neut # (Auto) 23.2 H Lymph # (Auto) 1.1 [place] # (Auto) 0.6 Eos # (Auto) 0.0 Baso # (Auto) 0.0 Immature Gran # (Auto) 0.17 H Absolute Nucleated RBC 0.00 Immature Gran % 1 H Nucleated RBC % 0 Sodium 139 Potassium 3.7 Chloride 101 Carbon Dioxide 26.6 Anion Gap 11 BUN 8 L Creatinine 0.6 Estim Creat Clear Calc 110.9 eGFR > 60 BUN/Creatinine Ratio 13 Glucose 120 H Calculated Osmolality 276 Lactic Acid 0.9 Calcium 9.3 Corrected Calcium 9.3 Total Bilirubin 0.3 AST 14 ALT 10 Alkaline Phosphatase 57 Troponin I < 0.002 Total Protein 6.6 Albumin 4.2 Globulin 2.4 Albumin/Globulin Ratio 1.8 Amylase 50 HCG, Qual Cancelled Ur Collection Type Clean Catch Urine Color Lt-Yellow Urine Clarity Clear Urine pH 7.0 Ur Specific [place] 1.020 Urine Protein Trace Urine Glucose (UA) Negative Urine Ketones Negative Urine Blood Negative Urine Nitrite Negative Urine Bilirubin Negative Urine Urobilinogen (Auto) Negative Ur Leukocyte Esterase Positive Urine RBC 12 H Urine WBC 10 H Ur Squamous Epith Cells 5 Urine Bacteria None Ur Culture Indicated? Not Indicated Urine HCG, Qual Urine Opiates Screen Urine Fentanyl Screen Ur Barbiturates Screen U Amphetamin/Meth Scrn U Benzodiazepines Scrn U Cocaine Metab Screen U Marijuana (THC) Screen 02/11/25 10:50 WBC RBC Hgb Hct MCV MCH MCHC RDW Std Deviation Plt Count Neut % (Auto) Lymph % (Auto) [place] % (Auto) Eos % (Auto) Baso % (Auto) Neut # (Auto) Lymph # (Auto) [place] # (Auto) Eos # (Auto) Baso # (Auto) Immature Gran # (Auto) Absolute Nucleated RBC Immature Gran % Nucleated RBC % Sodium Potassium Chloride Carbon Dioxide Anion Gap BUN Creatinine Estim Creat Clear Calc eGFR BUN/Creatinine Ratio Glucose Calculated Osmolality Lactic Acid Calcium Corrected Calcium Total Bilirubin AST ALT Alkaline Phosphatase Troponin I Total Protein Albumin Globulin Albumin/Globulin Ratio Amylase HCG, Qual Ur Collection Type Urine Color Urine Clarity Urine pH Ur Specific [place] Urine Protein Urine Glucose (UA) Urine Ketones Urine Blood Urine Nitrite Urine Bilirubin Urine Urobilinogen (Auto) Ur Leukocyte Esterase Urine RBC Urine WBC Ur Squamous Epith Cells Urine Bacteria Ur Culture Indicated? Urine HCG, Qual Negative Urine Opiates Screen Positive A Urine Fentanyl Screen Negative Ur Barbiturates Screen Negative U Amphetamin/Meth Scrn Negative U Benzodiazepines Scrn Negative U Cocaine Metab Screen Negative U Marijuana (THC) Screen Positive A TANKAGE SUPERVISOR - A/P Assessment and plan (1) History of hysterectomy: Status: Acute (2) Vaginal cuff dehiscence: Status: Acute Assessment and plan: Patient is postoperative day #1 status post repair of vaginal cuff dehiscence Will place her on clear diet Adjusted pain medicine and bowel regimen Reevaluate at regular intervals, anticipate discharge probably tomorrow after she has bowel function Postoperative Procedures: Procedures Operation Date: 02/11/25 15:15 Actual Procedure Side Surgeon p Repair of vaginal cuff tear Robb Vega MD Time Spent With Patient Time: Total time spent is greater than 50% in coordination of care (as documented) at patient's floor/unit and/or counseling patient: Time with patient: less than 15 minutes
[2025-02-12 08:52] LABS: Basophils # (Auto) 0.0 Thou/mm3 (0.0-0.2); Basophils % (Auto) 0 % (0-2.5); Eosinophils # (Auto) 0.0 Thou/mm3 (0.0-0.5); Eosinophils % (Auto) 0 % (0-10); Hematocrit 36.5 % (36.0-46.0); Hemoglobin 11.6 g/dL (12.0-16.0); Immature Granulocytes Auto 0.13 Thou/mm3 (0.00-0.00); Lymphocytes # (Auto) 1.5 Thou/mm3 (1.0-4.8); Lymphocytes % (Auto) 7 % (10-50); Mean Corpuscular HGB Conc 31.8 g/dl (31.0-37.0); Mean Corpuscular Hemoglobin 27.8 pg (25.0-35.0); Mean Corpuscular Volume 88 fL (80-100); Monocytes # (Auto) 0.7 Thou/mm3 (0.0-0.8); Monocytes % (Auto) 4 % (0-12); Neutrophils # (Auto) 17.4 Thou/mm3 (1.8-7.7); Neutrophils % (Auto) 88 % (37-80); Nucleated Red Blood Cell # 0.00 Thou/mm3 (0.00-0.00); Nucleated Red Blood Cell % 0 /100 WBC (0); Platelet Count 531 Thou/mm3 (140-440); RDW Standard Deviation 42.9 fL (36.4-46.3); Red Blood Count 4.17 Miln/mm3 (4.00-5.20); White Blood Count 19.7 Thou/mm3 (3.6-11.0)
[2025-02-12 09:10] LABS: Anion Gap 11 (7-16); BUN/Creatinine Ratio 16 Ratio (12-20); Blood Urea Nitrogen 11 mg/dL (9-23); Calcium 10.1 mg/dL (8.3-10.6); Carbon Dioxide 26.8 mMol/L (20.0-31.0); Chloride 103 mMol/L (98-107); Creatinine (Component) 0.7 mg/dL (0.6-1.3); Estimated Creatinine Clearance 95.1 mL/min (>60); Glucose 136 mg/dL (74-106); Osmolality,Calculated 282 (275-295); Potassium 3.8 mMol/L (3.4-5.1); Sodium 141 mMol/L (136-145); eGFR > 60 See Note
[2025-02-12] MEDS: HYDROmorphone INJ 2 MG/ML VIAL 1 MG IVP ×4 (09:25→22:24)
[2025-02-12 12:25] VITALS: BP 141/103; PULSE 91; RESP 16; TEMP 36.5; O2SAT 100
--- NOTE | 2025-02-12 12:38 | PC.SS ---
Follow up note: On IV antibiotic, having nausea, and vomiting, and controlling pain. Pt will return home upon dc.
--- NOTE | 2025-02-12 14:29 | XR_ITS ---
Examined in: Abdomen 2 views TECHNIQUE: AP supine AP upright abdomen 2 views Date and time: February 12, 2025 1504 hours INDICATIONS:, Abdominal distention, history pneumoperitoneum FINDINGS: Free air beneath the hemidiaphragms, please see the CT abdomen pelvis report 02/11/2025 Nonobstructive bowel gas pattern Abundant stool in the right colon with mild small bowel ileus IMPRESSION: Pneumoperitoneum. Abundant stool in the right colon with mild small bowel ileus, no obstruction
--- NOTE | 2025-02-12 15:42 | PC.SS ---
SS met with patient regarding her d/c plan. Pt is alert/oriented. Pt was admitted for Vaginal Cuff Dehiscence. Pt confirmed demographic and contact information is correct on facesheet. Pt resides with boyfriend, dtr, and boyfriend's dad. Pt ambulates independently without assistance or DME. Pt is ok with all ADLs. Patient?s pharmacy of choice is [facility]. Pt named her boyfriend, Dhruv Sarah medical decision maker if she unable. Patient?s choice is to return home upon d/c. Pt states she is not diabetic and is not on dialysis. Pt followed up with PCP Feb 08, 2025. D/C plan: Return home Next of Kin: Dhruv Sarah, florentinfriendanielle, phone# [phone] PCP: [facility] Address: Correct on facesheet
[2025-02-12] MEDS: DEXTROSE 5%-0.45% NS 1,000 ML 100 ML IV (15:45)
[2025-02-12] MEDS: ONDANSETRON INJ 2 MG/ML INJ 2 ML 4 MG IVP (15:46)
[2025-02-12] MEDS: ACETAMINOPHEN IVPB 1,000 MG/100 ML VIAL 250 MG IV ×2 (15:46→23:48)
[2025-02-12 16:00] VITALS: BP 142/92; PULSE 73; RESP 15; TEMP 36.6; O2SAT 100
[2025-02-12 20:00] VITALS: BP 114/97; PULSE 93; RESP 17; TEMP 37.1; O2SAT 99
[2025-02-13] VITALS: BP 131/84; PULSE 65; RESP 17; TEMP 36.2; O2SAT 99
[2025-02-13] MEDS: HYDROmorphone INJ 2 MG/ML VIAL 1 MG IVP ×2 (02:36→06:30)
[2025-02-13] MEDS: ONDANSETRON INJ 2 MG/ML INJ 2 ML 4 MG IVP (02:37)
[2025-02-13 04:00] VITALS: BP 139/86; PULSE 74; RESP 17; TEMP 36.3; O2SAT 99
[2025-02-13] MEDS: ACETAMINOPHEN IVPB 1,000 MG/100 ML VIAL 250 MG IV (05:11)
[2025-02-13] MEDS: PIPER/TAZO 3.375 GM PREMIX 3.375 GM/50 ML BAG IV (05:11)
[2025-02-13] MEDS: METOCLOPRAMIDE INJ 5 MG/ML VIAL 2 ML 10 MG IVP (06:29)
[2025-02-13 07:44] VITALS: BP 141/93; PULSE 73; RESP 15; TEMP 36.6; O2SAT 99
[2025-02-13 10:18] LABS: Albumin, Serum 4.3 gm/dL (3.5-5.0); Albumin/Globulin Ratio 1.6 (1.2-2.2); Alkaline Phosphatase 57 U/L (46-116); Anion Gap 10 (7-16); Aspartate Amino Transferase 15 U/L (0-34); BUN/Creatinine Ratio 7 Ratio (12-20); Bilirubin,Total 0.3 mg/dL (0.3-1.2); Blood Urea Nitrogen < 5 mg/dL (9-23); Calcium 9.8 mg/dL (8.3-10.6); Calcium (Corrected) 9.8 mg/dL (8.5-10.1); Carbon Dioxide 27.7 mMol/L (20.0-31.0); Chloride 102 mMol/L (98-107); Creatinine (Component) 0.7 mg/dL (0.6-1.3); Estimated Creatinine Clearance 95.1 mL/min (>60); Globulin 2.7 gm/dL (2.3-3.5); Glucose 106 mg/dL (74-106); Osmolality,Calculated 276 (275-295); Potassium 4.2 mMol/L (3.4-5.1); Sodium 140 mMol/L (136-145); Total Protein 7.0 gm/dL (5.7-8.2); eGFR > 60 See Note
[2025-02-13 10:26] LABS: Alanine Aminotransferase < 7 U/L (10-49); Basophils # (Auto) 0.0 Thou/mm3 (0.0-0.2); Basophils % (Auto) 0 % (0-2.5); Eosinophils # (Auto) 0.0 Thou/mm3 (0.0-0.5); Eosinophils % (Auto) 0 % (0-10); Hematocrit 36.8 % (36.0-46.0); Hemoglobin 11.8 g/dL (12.0-16.0); Immature Granulocytes Auto 0.05 Thou/mm3 (0.00-0.00); Lymphocytes # (Auto) 2.5 Thou/mm3 (1.0-4.8); Lymphocytes % (Auto) 22 % (10-50); Mean Corpuscular HGB Conc 32.1 g/dl (31.0-37.0); Mean Corpuscular Hemoglobin 28.0 pg (25.0-35.0); Mean Corpuscular Volume 87 fL (80-100); Monocytes # (Auto) 0.6 Thou/mm3 (0.0-0.8); Monocytes % (Auto) 5 % (0-12); Neutrophils # (Auto) 8.3 Thou/mm3 (1.8-7.7); Neutrophils % (Auto) 72 % (37-80); Nucleated Red Blood Cell # 0.00 Thou/mm3 (0.00-0.00); Nucleated Red Blood Cell % 0 /100 WBC (0); Platelet Count 436 Thou/mm3 (140-440); RDW Standard Deviation 44.0 fL (36.4-46.3); Red Blood Count 4.22 Miln/mm3 (4.00-5.20); White Blood Count 11.4 Thou/mm3 (3.6-11.0)
--- NOTE | 2025-02-13 10:46 | ESPR_ITS ---
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 Feeling much better, was noted to be eating breakfast and speaking on the phone. No acute distress. Reports multiple bowel movements yesterday and significant relief of pain after bowel activity No chest pain or shortness of breath continues to have mildly elevated blood pressures Exam Vital Signs Temp Pulse Resp BP Pulse Ox O2 Del Method O2 Flow Rate 97.8 F 73 15 141/93 H 99 Room Air 2 02/13/25 07:44 02/13/25 07:44 02/13/25 07:44 02/13/25 07:44 02/13/25 07:44 02/13/25 07:44 02/11/25 14:29 Constitutional Constitutional: no acute distress Routine HEENT Exam Head: Present normocephalic and atraumatic Eye: Present EOMI and PERRL ENT: Present mucous membranes moist Routine Neck Exam Neck: Present supple and trachea midline Routine Respiratory Exam Respiratory: Present chest non-tender, lungs clear, normal breath sounds and no resp distress Routine Cardiovascular Exam Cardiovascular: Present RRR Routine Abdominal Exam Abdominal: Present soft and normoactive bowel sounds Routine Extremities Exam Extremities: Present full ROM Routine Skin Exam Skin: Present intact and dry Routine Neurological Exam Neurological: Present alert, oriented X3 and CN II-XII intact Routine Psychiatric Exam Psychiatric: Present normal affect and normal thought process Urinary Catheter Management Cath placed during this visit: no SUPERVISOR 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 - PN: Obj Data Labs 02/13/25 09:46 02/13/25 09:46 Labs: Laboratory Results - last 24 hr 02/13/25 09:46 WBC 11.4 H D RBC 4.22 Hgb 11.8 L Hct 36.8 MCV 87 MCH 28.0 MCHC 32.1 RDW Std Deviation 44.0 Plt Count 436 D Neut % (Auto) 72 Lymph % (Auto) 22 Rankin % (Auto) 5 Eos % (Auto) 0 Baso % (Auto) 0 Neut # (Auto) 8.3 H Lymph # (Auto) 2.5 Rankin # (Auto) 0.6 Eos # (Auto) 0.0 Baso # (Auto) 0.0 Immature Gran # (Auto) 0.05 H Absolute Nucleated RBC 0.00 Immature Gran % 0 Nucleated RBC % 0 Sodium 140 Potassium 4.2 Chloride 102 Carbon Dioxide 27.7 Anion Gap 10 BUN < 5 L Creatinine 0.7 Estim Creat Clear Calc 95.1 eGFR > 60 BUN/Creatinine Ratio 7 L Glucose 106 Calculated Osmolality 276 Calcium 9.8 Corrected Calcium 9.8 Total Bilirubin 0.3 AST 15 ALT < 7 L Alkaline Phosphatase 57 Total Protein 7.0 Albumin 4.3 Globulin 2.7 Albumin/Globulin Ratio 1.6 SUPERVISOR 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 Strictly reviewed all precautions that she needs to follow. Medications reviewed with the patient. Close follow-up in the office every 7 days until healing of vaginal cuff. Postoperative Procedures: Procedures Operation Date: 02/11/25 15:15 Actual Procedure Side Surgeon p Repair of vaginal cuff tear Robb Vega MD Time Spent With Patient Time: Total time spent is greater than 50% in coordination of care (as documented) at patient's floor/unit and/or counseling patient: Time with patient: less than 15 minutes
[2025-02-13 12:00] VITALS: BP 130/82; PULSE 70; RESP 16; TEMP 36.5; O2SAT 98
== END 2025-02-13 12:04 | disposition home or self-care (01) ==
LOC: SERX 12:38 → SERHOLD 12:44 → S3SX 20:23 → SERHOLD 02-15 09:13
PROVIDERS: Nurse Practitioner Primary Care; Admitting Provider Obstetrics & Gynecology; Emergency Provider Family Medicine; Visit Provider Obstetrics & Gynecology
PROC: (CPT 58999; principal; 2025-02-11 15:00)
DX: T81.328A Disruption or dehiscence of closure of other specified internal operation (surgical) wound, initial encounter (principal); Y83.8 Other surgical procedures as the cause of abnormal reaction of the patient, or of later complication, without mention of misadventure at the time of the procedure; Z90.710 Acquired absence of both cervix and uterus; R06.02 Shortness of breath
CPT/HCPCS: 58999; 36415; 71045; 74019; 74177; 80048; 80053; 80307; 81001; 81025; 82150; 83605; 84484; 84703; 85025; 87040; 87081; 93005; 96365; 96375; 96376; 99285; A4649; G0378; J0131; J1100; J1171; J1885; J2270; J2405; J2470; J2543; J2704; J2765; J3010; J7042; Q9967; A9270

== ENCOUNTER 2025-04-11 11:48 | Emergency (ER) | payer MEDICAID, SELFPAY ==
[2025-04-11 11:49] VITALS: BMI 21.4
--- NOTE | 2025-04-11 11:56 | XR_ITS ---
Examination: Shoulder, right, 3 views Technique: Shoulder AP internal rotation, AP external rotation, Y view shoulder, 3 views Exam date and time : April 11, 2025, 12:07 p.m. INDICATIONS: Right shoulder pain beginning last night FINDINGS: No shoulder fracture or dislocation No AC joint separation IMPRESSION: No fracture or shoulder dislocation
[2025-04-11 13:08] VITALS: BP 129/88; PULSE 80; RESP 16; TEMP 36.9; O2SAT 98
--- NOTE | 2025-04-11 13:09 | PD.EDUPEX ---
Upper Extremity Injury RME/HPI General Chief Complaint: Extremity Injury, Upper Stated Complaint: RIGHT SHOULDER PAIN S/P POPPED LAST NIGHT Time Seen by Provider: 04/11/25 13:09 Arrival date/time: 04/11/25 11:48 RME / HPI RME / HPI narrative: See [facility] for Dr. Olivier's HPI Documentation. Related Data Home Medications ?Medication ?Instructions ?Recorded ?Confirmed hydrocodone 5 mg-acetaminophen 325 1 tab PO Q6H PRN pain 01/08/25 02/11/25 mg tablet tramadol 50 mg tablet 100 mg PO Q8H PRN pain 02/11/25 02/11/25 Previous Rx's ?Medication ?Instructions ?Recorded bisacodyl 5 mg tablet,delayed 5 mg PO QDAY 15 days #15 tabs 02/13/25 release (Laxative (bisacodyl)) Allergies Allergy/AdvReac Type Severity Reaction Status Date / Time codeine Allergy Severe Rash Verified 04/11/25 11:52 Review of Systems Review of Systems Systems Reviewed: All systems reviewed, normal except as documented Past Medical History Past Medical History RESPIRATORY: Positive Asthma GASTROINTESTINAL: Positive Gastrointestinal Disorders and Gastroesophageal Reflux Disease REPRODUCTIVE: Positive Endometriosis, Previous Pregnancies and Uterine Prolapse HEMATOLOGIC: Positive Anemia PSYCHO/SOCIAL: Positive Recreational Drug Use, Depression and Anxiety OTHER HISTORY: Positive Hospitalization Family History FAMILY HISTORY: Positive Family Cardiac Disorders and Family Surgery Surgical History SURGICAL: Positive Abdominal Surgery, Hysterectomy and Tubal Ligation Social History SMOKING STATUS: Never smoker SECOND HAND EXPOSURE: Yes SUBSTANCE USE: marijuana (Occasional) ED Exam Narrative Physical exam: See [facility] for Dr. Olivier's HPI Documentation. Course Quality Measures none Orders Category Date Time Status Miscellaneous Nursing Order NOW Care 04/11/25 13:09 Completed XR shoulder RT min 2V Stat Exams 04/11/25 11:56 Completed Vital Signs Vital signs: Vital Signs Temperature 98.4 F 04/11/25 13:08 Pulse Rate 80 04/11/25 13:08 Respiratory Rate 16 04/11/25 13:08 Blood Pressure 129/88 H 04/11/25 13:08 Pulse Oximetry (%) 98 04/11/25 13:08 Oxygen Delivery Method Room Air 04/11/25 13:08 Extremity Injury MDM Narrative MDM Narrative:: This section includes all my notes and documentations, including HPI, PE, and ED course. Abhishek Olivier MD HPI: 29-year-old female here with right shoulder injury yesterday. While pulling herself up a chair, she felt a popping sensation in the right shoulder. Ever since, she reports shoulder pain, especially with any movement. Can move and feel the fingers normally. No other complaints. ROS: All negative except as documented in HPI. Physical Exam: General: Alert and oriented. Eyes: Conjunctivae and lids clear. ENT: No nasal congestion. Neck: Supple. Lungs: No respiratory distress. Skin: Warm and dry. Neuro: Alert and oriented X 3. Right Shoulder: Equivocal tenderness. Limited range of motion due to pain. Distally, no NVT injury. I reviewed all diagnostic test results: My review of the right shoulder x-rays is no acute findings. At this point, diagnoses include: Right shoulder sprain Applied right arm sling. Recommended a trial of conservative treatment. Based on my best medical judgment, made decision no further evaluation or treatment indicated at this time. Patient understands and agrees to the discharge instructions customized and printed, see below. Discharge Instructions from Dr. Olivier printed for you: 1. For rest needed to heal, wear right arm sling for 4 days and as needed. 2. Apply ice for 20 minutes every 2-3 hours today and tomorrow. Ibuprofen 400 mg every 6-8 hours today and tomorrow to decrease inflammation then as needed. Lidocaine patches and your tramadol as needed. 3. See a private doctor on 04/16/2025. If not significantly better, ask for MRI imaging. To make sure there is no severe tear needing surgery. 4. Seek immediate medical care with worsening or with any concerns. Abhishek Olivier MD Patient data External records reviewed:: [facility] previous records Clinical information provided by:: patient Social determinants that could affect healthcare access:: none Patient has the following chronic illnesses:: History of uterine prolapse and severe endometriosis/adenomyosis s/p total laparoscopic hysterectomy bilateral partial salpingectomy performed by Dr. Vega on 01/11/2025. How is presenting disease/condition affected by chronic disease/condition?: uneffected by Evaluation data The following diagnostics were reviewed and interpreted by me:: radiology exam(s) Lab and/or radiology exams considered but not ordered:: none Interpretation Summary: I reviewed all diagnostic test results: My review of the shoulder XR report is: No fracture or shoulder dislocation Medications / Prescriptions Medications or Prescriptions considered but not ordered:: none Medication administrations:: none Consultations Consultation(s) initiated? (list below): No Diagnosis Upper Extremity Injury Differential Diagnosis: dislocation of shoulder, fracture of humerus, fracture of clavicle and other (Shoulder strain, rotator cuff injury) Most likely diagnosis given after review of the tests above:: Sprain of right shoulder Admission Indicated Admission indicated?: not indicated Explain why admission is indicated or not indicated:: With no condition needing emergent intervention, there was no indication for admission. Admission Request Was there a request for admission?: No Disposition Plan Disposition Plan: Discharge Discharge Attestation Discharge Attestation: The patient and all family members were given an opportunity to ask questions and understood the discharge instructions. Discharge instructions specifically effects, indications for sooner follow up or return to the emergency department, and the expected course of current diagnosis. Patient condition: Stable Discharge Plan Plan Patient Disposition: HOME (Self Care) Prescriptions/Referrals Prescriptions/Med Rec: No Action hydrocodone-acetaminophen 5-325 mg tablet 1 tab PO Q6H PRN (Reason: pain) Patient Comments: TAKE 1 TABLET BY MOUTH EVERY 6 HOURS NEEDED FOR PAIN tramadol 50 mg tablet 100 mg PO Q8H PRN (Reason: pain) bisacodyl [Laxative (bisacodyl)] 5 mg tablet,delayed release (DR/EC) 5 mg PO QDAY 15 Days Qty: 15 1RF Problem List Clinical Impression: Sprain of right shoulder Patient/Caregiver Discharge Instructions Discharge Activity: activity as tolerated Education Materials: ED Shoulder Sprain Additional Instructions: Discharge Instructions from Dr. Olivier printed for you: 1. For rest needed to heal, wear right arm sling for 4 days and as needed. 2. Apply ice for 20 minutes every 2-3 hours today and tomorrow. Ibuprofen 400 mg every 6-8 hours today and tomorrow to decrease inflammation then as needed. Lidocaine patches and your tramadol as needed. 3. See a private doctor on 04/16/2025. If not significantly better, ask for MRI imaging. To make sure there is no severe tear needing surgery. 4. Seek immediate medical care with worsening or with any concerns. Print Language: Turkmen Stand Alone Forms: Dianna Award Info., Patient Portal Info Letter
== END 2025-04-11 14:11 | disposition home or self-care (01) ==
LOC: SERX 14:06
PROVIDERS: Emergency Provider Emergency Medicine
DX: S43.401A Unspecified sprain of right shoulder joint, initial encounter (principal); X50.0XXA Overexertion from strenuous movement or load, initial encounter
CPT/HCPCS: 73030; 99282

== ENCOUNTER 2025-04-27 10:56 | Outpatient (AMB) | payer MEDICAID, SELFPAY ==
--- NOTE | 2025-04-27 11:20 | GYNCLNT_ITS ---
Vital Signs 04/27/25 11:26 Height 1.63 m Height Method Stated Weight 57.379 kg Weight Measurement Method Standing Scale BMI 21.6 BP 120/81 Blood Pressure Source Automatic Cuff Blood Pressure Location Left Upper Arm Position Sitting Respiration 18 Pulse 82 Pulse Source Monitor Temp 97.2 F Temp Source Oral Pulse Oximetry (%) 98 Oxygen Delivery Method Room Air Allergies/Home Meds Allergies & Medications Allergies codeine Allergy (Severe, Verified 05/10/25 11:41) Rash Medication Reconciliation hydrocodone 5 mg-acetaminophen 325 mg tablet 1 tab PO Q6H PRN pain 01/08/25 [History Confirmed 05/10/25] tramadol 50 mg tablet 100 mg PO Q8H PRN pain 02/11/25 [History Confirmed 05/10/25] bisacodyl 5 mg tablet,delayed release (Laxative (bisacodyl)) 5 mg PO QDAY 15 days #15 tabs 02/13/25 [Rx Confirmed 05/10/25] estradiol 0.05 mg-norethindrone 0.25 mg/24 hr semiwkly transderm patch (CombiPatch) 1 patch transdermal .COMPLEX 28 days #8 ea 05/10/25 [Rx] Intake Visit Data Collection New Patient or Established: Established Patient (seen at 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 Menstrual regularity: regular Flow: normal Monthly: Yes Menopausal: No 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 1. Little interest or pleasure in doing things: not at all 2. Feeling down, depressed, or hopeless: not at all Total score: 0 PHQ-9 3. Trouble falling or staying asleep, or sleeping too much: Not at all 4. Feeling tired or having little energy: Not at all 5. Poor appetite or overeating: Not at all 6. Feeling bad about yourself - or that you are a failure or have let yourself or your family down: Not at all 7. Trouble concentrating on things, such as reading the newspaper or watching television: Not at all 8. Moving or speaking so slowly that other people could have noticed? - Or the opposite - being so fidgety or restless that you have been moving around a lot more than usual: not at all 9. Thoughts that you would be better off or of hurting yourself in some way: Not at all Total score: 0 If you checked off any problems, how difficult have these problems made it for you to do your work, take care of things at home, or get along with other people?: not difficult at all Source: Developed by Drs. Mack Bowers, Sahra Sarmiento, Shon Rojas and colleagues, with an educational anabella from [employer]. Depression screen completed yes Social History Living Situation History Lives With: Significant Other Housing: House Housing Other:: Pt lives with boyfriend and family Tobacco History Smoking Status: Never smoker Second Hand Smoke Exposure: Yes Alcohol History Alcohol Intake: Never Alcohol Intake Frequency: holidays/special occasions only Substance Use History Substance Use: last THC use 11/25/2019 Domestic Abuse History Do You Feel Safe at Home: Yes History of Present Illness HPI Narrative Monserrat Simpson presents for 2-month postoperative follow-up after vaginal cuff repair. She initially underwent laparoscopic hysterectomy on January 11, 2025, and subsequently presented to the emergency room on February 11, 2025 with dehiscence of the vaginal cuff after sexual intercourse, which was repaired the same day. Since her repeat surgery in January, the patient reports doing well overall and has been performing all her normal activities. She has been cautious about avoiding heavy lifting as a precaution. She experiences slight cramping and spotting, which she describes as not serious. The patient denies hot flushes or other hormonal symptoms. She also reports coccydynia, described as tailbone irritation. The patient has had no restrictions on her activities and reports her overall condition as great since the repair procedure two months ago. She has a history of laparoscopic hysterectomy on January 11, 2025 and vaginal cuff dehiscence repair on February 11, 2025 following dehiscence after sexual intercourse. The patient has been taking ibuprofen as needed for pain. ROS: Positive for slight cramping, tailbone pain, and spotting. Negative for hot flushes or hormone symptoms. Exam General General Appearance: alert, in no apparent distress and healthy appearing Head Head exam: atraumatic Neck Neck exam: Present normal inspection and trachea midline Chest Chest inspection: Present normal inspection and symmetric chest wall rise External exam: Present normal external exam; Absent tenderness Neuro Neurological exam: Present oriented X3 Psych Psychiatric exam: Present normal affect and normal mood Office Procedures [facility] LOC & Office Proc's Nursing/Assessment Patient Status: Established Patient OB Clinic Nursing Assessment: Medication Reconciliation, Update PMH in EMR and Vital Signs OB Clinic Coordination of Care: Consent,records obtained, informed consent, Education Simp Pt/Fam, Lab and Imaging orders, Results/Orders obtained and Staff clarify orders Established Patient Charge Established Patient Point Assignment: 80 Established Patient Point Charge: EP Level 3 (80-115) Assessment & Plan Diagnosis / Problem List (1) Hot flashes due to menopause: Status: Acute Plan Postoperative status post vaginal cuff repair: - Patient is 2 months status post vaginal cuff dehiscence repair following initial laparoscopic hysterectomy in December 2024. - Dehiscence occurred after sexual intercourse and was repaired on February 11, 2025. - Patient reports doing well with normal activities, experiencing only slight cramping and spotting. - Spotting likely related to vaginal dryness and friction during intercourse. - Complete healing has occurred at 2 months post-repair. Plan: - Use lubricant during intercourse to reduce friction and spotting. - No activity restrictions, may resume weight lifting and all normal activities. - Monitor for hormonal symptoms and hot flushes, contact if these develop. - Return as needed for any concerns. Coccydynia: - Patient has developed tailbone irritation, likely from surgical positioning during procedures or from friction. - Causing discomfort in the coccygeal region. Plan: - Use cushion when sitting. - Hot baths with basin of hot water for sitting. - Simple pain medications including ibuprofen for symptom relief. - If conservative measures fail, request primary care physician obtain x-rays.
[2025-04-27 11:26] VITALS: BP 120/81; PULSE 82; RESP 18; TEMP 36.2; O2SAT 98; BMI 21.6
== END 2025-04-27 11:33 | disposition home or self-care (01) ==
LOC: HODSOBC 10:56
PROVIDERS: Supervising Provider Obstetrics & Gynecology; Visit Provider Obstetrics & Gynecology
DX: N95.1 Menopausal and female climacteric states (principal); R23.2 Flushing; M53.3 Sacrococcygeal disorders, not elsewhere classified; Z90.710 Acquired absence of both cervix and uterus; Z88.5 Allergy status to narcotic agent
CPT/HCPCS: 99213; G0463

== ENCOUNTER 2025-05-10 11:13 | Outpatient (AMB) | payer MEDICAID, SELFPAY ==
[2025-05-10 11:40] VITALS: BP 137/101; PULSE 114; RESP 18; TEMP 36.8; O2SAT 98; BMI 19.6
--- NOTE | 2025-05-10 11:40 | AMB.GYNCLNOT ---
Vital Signs 05/10/25 11:40 Height 1.63 m Height Method Stated Weight 52.22 kg Weight Measurement Method Standing Scale BMI 19.6 BP 137/101 H Blood Pressure Source Automatic Cuff Blood Pressure Location Left Upper Arm Position Sitting Respiration 18 Pulse 114 H Pulse Source Monitor Temp 98.2 F Temp Source Oral Pulse Oximetry (%) 98 Oxygen Delivery Method Room Air Allergies/Home Meds Allergies & Medications Allergies codeine Allergy (Severe, Verified 05/10/25 11:41) Rash Medication Reconciliation hydrocodone 5 mg-acetaminophen 325 mg tablet 1 tab PO Q6H PRN pain 01/08/25 [History Confirmed 05/10/25] tramadol 50 mg tablet 100 mg PO Q8H PRN pain 02/11/25 [History Confirmed 05/10/25] bisacodyl 5 mg tablet,delayed release (Laxative (bisacodyl)) 5 mg PO QDAY 15 days #15 tabs 02/13/25 [Rx Confirmed 05/10/25] estradiol 0.05 mg-norethindrone 0.25 mg/24 hr semiwkly transderm patch (CombiPatch) 1 patch transdermal .COMPLEX 28 days #8 ea 05/10/25 [Rx] Intake Visit Data Collection New Patient or Established: Established Patient (seen at 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 Menstrual regularity: regular Flow: normal Monthly: Yes Currently sexually active: No 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 1. Little interest or pleasure in doing things: not at all 2. Feeling down, depressed, or hopeless: not at all Total score: 0 PHQ-9 3. Trouble falling or staying asleep, or sleeping too much: Not at all 4. Feeling tired or having little energy: Not at all 5. Poor appetite or overeating: Not at all 6. Feeling bad about yourself - or that you are a failure or have let yourself or your family down: Not at all 7. Trouble concentrating on things, such as reading the newspaper or watching television: Not at all 8. Moving or speaking so slowly that other people could have noticed? - Or the opposite - being so fidgety or restless that you have been moving around a lot more than usual: not at all 9. Thoughts that you would be better off or of hurting yourself in some way: Not at all Total score: 0 If you checked off any problems, how difficult have these problems made it for you to do your work, take care of things at home, or get along with other people?: not difficult at all Source: Developed by Drs. Mack Bowers, Sahra Sarmiento, Shon Rojas and colleagues, with an educational anabella from [employer]. Depression screen completed yes Social History Living Situation History Lives With: Significant Other Housing: House Housing Other:: Pt lives with boyfriend and family Tobacco History Smoking Status: Never smoker Second Hand Smoke Exposure: Yes Alcohol History Alcohol Intake: Never Alcohol Intake Frequency: holidays/special occasions only Substance Use History Substance Use: last THC use 11/25/2019 Domestic Abuse History Do You Feel Safe at Home: Yes History of Present Illness HPI Narrative Monserrat Simpson presents with worsening hot flashes, nausea, vomiting, and right-sided abdominal pain following recent hysterectomy. She reports that on Saturday she started throwing up again and it wouldn't stop until Saturday. She describes severe right-sided abdominal pain that worsens with coughing or when she feels like she's going to vomit. The nausea is persistent and won't go away. Her hot flashes have been occurring all the time, waking her up at night, and have recently started getting worse. Prior to the onset of these symptoms, she was experiencing significant cramping that felt like menstrual cramps despite not having a uterus, describing the cramps as that bad. The hot flashes intensified after the cramping episodes. She notes that she had been doing well previously but these symptoms represent a recent deterioration. The patient denies fever, loose motions, or blood in the urine. ROS: Negative except as stated above, limited to INTENSIVE CARE ANAESTHETIST and pertinent complaints. Exam General General Appearance: alert, in no apparent distress and healthy appearing Head Head exam: atraumatic Neck Neck exam: Present normal inspection and trachea midline Chest Chest inspection: Present normal inspection and symmetric chest wall rise External exam: Present normal external exam; Absent tenderness Neuro Neurological exam: Present oriented X3 Psych Psychiatric exam: Present normal affect and normal mood Office Procedures [facility] LOC & Office Proc's Nursing/Assessment Patient Status: Established Patient OB Clinic Nursing Assessment: Medication Reconciliation, Update PMH in EMR and Vital Signs OB Clinic Coordination of Care: Consent,records obtained, informed consent, Education Simp Pt/Fam, Lab and Imaging orders, Results/Orders obtained and Staff clarify orders Established Patient Charge Established Patient Point Assignment: 80 Established Patient Point Charge: EP Level 3 (80-115) Assessment & Plan Diagnosis / Problem List (1) Hot flashes due to menopause: Status: Acute (2) History of hysterectomy: Status: Acute (3) Peritonitis: Status: Acute (4) Vaginal cuff dehiscence: Status: Acute Plan Menopausal symptoms post-hysterectomy: - Patient experiencing severe hot flashes that are worsening and disrupting sleep following hysterectomy. - Hot flashes are frequent and significantly impacting quality of life. - Given the post-hysterectomy status, hormone replacement therapy is indicated to manage menopausal symptoms. Plan: - Start Kombi patch (combination hormone replacement therapy with both estrogen and progesterone) at lower dose. 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 - Due to concurrent nausea, transdermal delivery is preferred over oral formulation to avoid gastrointestinal side effects. - Follow-up in one month to assess hormone therapy effectiveness. Nausea and vomiting: - Patient developed nausea and vomiting starting Saturday, persisting through Saturday. - Concerning given the significant time interval since hysterectomy, and the patient had been doing well previously. - May be related to hormonal changes but requires monitoring given the concurrent abdominal pain. Plan: - Hormone replacement therapy with transdermal patch may help improve nausea symptoms. - Monitor response to hormone therapy. Right-sided abdominal pain: - Patient experiencing worsening right-sided abdominal pain that is exacerbated by coughing and during episodes of nausea/vomiting. - Given the location and characteristics of the pain, differential diagnosis includes appendicitis or other abdominal pathology. Plan: - If pain persists or worsens, present to emergency room for evaluation to rule out appendicitis or other acute abdominal conditions. - Monitor response to hormone therapy which may help with overall symptom improvement. - Follow-up in one month to assess hormone therapy effectiveness.
== END 2025-05-10 11:56 | disposition home or self-care (01) ==
LOC: HODSOBC 11:13
PROVIDERS: Supervising Provider Obstetrics & Gynecology; Visit Provider Obstetrics & Gynecology
DX: N95.1 Menopausal and female climacteric states (principal); R23.2 Flushing; K65.9 Peritonitis, unspecified; T81.31XA Disruption of external operation (surgical) wound, not elsewhere classified, initial encounter; Z90.710 Acquired absence of both cervix and uterus; Z88.5 Allergy status to narcotic agent; Y83.6 Removal of other organ (partial) (total) as the cause of abnormal reaction of the patient, or of later complication, without mention of misadventure at the time of the procedure
CPT/HCPCS: 99213; G0463

== ENCOUNTER → 2025-05-25 | Outpatient (CLI) | payer MEDICAID, SELFPAY ==
--- NOTE | 2025-05-25 | XR_ITS ---
EXAMINATION: Sacrum and coccyx 3 views TECHNIQUE: AP inclined AP lateral sacrum and coccyx 3 views Date and time: May 25, 2025, 1231 hours INDICATIONS: Tailbone pain 3 months FINDINGS: Symmetrical sacral foramina Satisfactory alignment sacrococcygeal segments, no fracture IMPRESSION: Satisfactory alignment sacrococcygeal segments no fracture
== END | disposition home or self-care (01) ==
PROVIDERS: PCP Obstetrics & Gynecology; Referring Provider Obstetrics & Gynecology; Visit Provider Obstetrics & Gynecology
DX: M53.2X7 Spinal instabilities, lumbosacral region (principal)
CPT/HCPCS: 72220